=== PATIENT | male | born 1955 | race Caucasian/White ===

== ENCOUNTER 2018-07-31 12:42 | Inpatient (IN) | payer OTHER, MEDICARE | END 2018-08-04 14:40 | disposition home or self-care (01) | LOC: ER 12:42 → TELE 19:27 → TELE-EAST 22:50 | DX: C80.1 Malignant (primary) neoplasm, unspecified (principal); E87.1 Hypo-osmolality and hyponatremia; M48.56XA Collapsed vertebra, not elsewhere classified, lumbar region, initial encounter for fracture; I48.91 Unspecified atrial fibrillation; E78.00 Pure hypercholesterolemia, unspecified; E66.9 Obesity, unspecified ==

== ENCOUNTER 2018-12-13 11:15 | Inpatient (IN) | payer OTHER ==
[~2018-12-13] VITALS: Ht 188 cm; Wt 97.8 kg
[~2018-12-13 11:15] MED LIST: ALLO300T2 PO; APIX5TAB PO; ASPI-231 PO; ATEN-60 PO; ATOR20TA50 PO; CEL100T PO; OMEP20TA PO
[2018-12-13 11:56] LABS: Basophils # (auto) 0 uL; Basophils % (auto) 0.5 % (0.0-2.0); Eosinophils # (auto) 0.2 uL; Eosinophils % (auto) 1.7 % (0.0-7.0); Hematocrit 41.8 % (41.0-53.0); Hemoglobin 14.6 g/dL (13.5-17.5); Lymphocytes % (auto) 9.4 % (10.0-50.0); Mean Corpuscular Hemoglobin 33.1 pg (28.0-32.0); Mean Corpuscular Hgb Conc. 34.8 g/dL (32.0-36.0); Mean Corpuscular Volume 94.9 fL (80.0-100.0); Monocytes # (auto) 1.6 uL; Monocytes % (auto) 16.2 % (0.0-12.0); Neutrophils # (auto) 7.3 uL; Neutrophils % (auto) 72.2 % (37.0-80.0); Nucleated Red Blood Cells % 0.5 %; Platelet Count (auto) 96 10^3/uL (140-450); Red Blood Cells 4.41 10^6/uL (4.5-5.90); Red Cell Distribution Width 16.1 % (11.8-14.3); White Blood Cell 10.1 10^3/uL (4.4-10.8)
[2018-12-13 12:21] LABS: Calcium 8.3 mg/dL (8.5-10.1); Chloride 108 mmol/L (98-107); Potassium 3.5 mmol/L (3.5-5.1); Sodium 136 mmol/L (136-145)
[2018-12-13 12:24] LABS: Alanine Aminotransferase 54 U/L (16-61); Albumin 3.5 g/dL (3.4-5.0); Anion Gap 11 (5-15); Aspartate Aminotransferase 26 U/L (15-37); BUN/Creatinine Ratio 24.2; Blood Urea Nitrogen 30 mg/dL (7-18); Carbon Dioxide 17 mmol/L (21-32); GFR African American 75 mL/min; GFR Non-African American 62 mL/min; Glucose 117 mg/dL (74-106)
[2018-12-13 12:38] LABS: Alkaline Phosphatase 112 U/L (45-117); Bilirubin, Total 0.9 mg/dL (0.2-1.0); Total Protein 6.2 g/dL (6.4-8.2)
[2018-12-13] MEDS ORDERED: SODIUM CHLORIDE 0.9% 1,000 ML IVB ONE (16:55)
[2018-12-13 17:54] LABS: INR 1.01 (0.9-1.15); Partial Thromboplastin Time 24.5 sec (23.64-32.05)
[2018-12-13] MEDS ORDERED: ACETAMINOPHEN 500 MG TAB PO PRN (18:15)
[2018-12-13] MEDS ORDERED: LACTULOSE 20Gm/30ML SOLN PO PRN (18:15)
[2018-12-13] MEDS ORDERED: PROMETHAZINE HCL 25 MG/ML 1ML IV PRN (18:15)
[2018-12-13] MEDS ORDERED: MORPHINE SULF INJ 2 MG/ML SYRINGE 1ML IV PRN ×2 (18:15)
[2018-12-13] MEDS ORDERED: NITROGLYCERIN 0.4 MG SL TAB SL PRN (18:15)
[2018-12-13] MEDS: SODIUM CHLORIDE 0.9% 1,000 ML IV SCH (18:25)
[2018-12-13 21:00] VITALS: BP 105/65
--- NOTE | 2018-12-13 21:00 | NUR ---
Telemetry admit from ER [facility] admitted to Telemetry unit. Patient oriented to Rebeka funk RN, unit, room, bed, and unit policies regarding patient care and visiting hours. Patient now on continuous telemetry monitoring, tele box #51 and telemetry reading on arrival to unit is . Patient placed weighed by bedscale and encouraged to call if they need something. All questions and concerns addressed, patient verbalized understanding.
[2018-12-13] MEDS: APIXABAN 5 MG TAB PO SCH (21:31)
[2018-12-13 22:42] LABS: Urine Bacteria NONE SEEN /hpf (None Seen); Urine Blood 1+ /uL (Negative); Urine Specific Gravity 1.027 (1.001-1.035); Urine WBC <1 /hpf (0 - 3)
[2018-12-14 05:00] VITALS: BP 110/58
[2018-12-14] MEDS: SODIUM CHLORIDE 0.9% 1,000 ML IV SCH ×2 (06:41→19:26)
--- NOTE | 2018-12-14 06:59 | NUR ---
CLOSING PATIENT SLEEPING. NO S/S OF DISTRESS NOTED. FALL PRECAUTIONS IN PLACE, CALL LIGHT WITHIN REACH WILL ENDORSE CARE TO AM SHIFT RN
--- NOTE | 2018-12-14 07:59 | NUR ---
Opening Note Assumed pt care from NOC nurse. Pt is a/ox4 with no s/s of distress or SOB. Pt is currently laying in bed with no complaints. Discussed POC with pt; opt verbalized understanding. Safety measures maintained with call light within reach, bed in lowest position and side rails up. Will continue to monitor for changes q1hr and prn.
[2018-12-14 09:00] VITALS: BP 111/62
[2018-12-14] MEDS: ALLOPURINOL 300 MG TAB PO SCH (09:17)
[2018-12-14] MEDS: APIXABAN 5 MG TAB PO SCH ×2 (09:17→21:47)
[2018-12-14] MEDS: ATORVASTATIN 20 MG TAB PO SCH (09:17)
[2018-12-14] MEDS: PANTOPRAZOLE 40 MG TAB PO SCH (09:19)
[2018-12-14] MEDS: ASPirin-EC 81 mg tab PO SCH (09:19)
[2018-12-14] MEDS: ATENOLOL 25 MG TAB PO SCH (09:19)
[2018-12-14 12:47] VITALS: BP 105/57
--- NOTE | 2018-12-14 13:44 | NUR ---
Assessment Pt is a 63 yr old alert and oriented male. Prior to admit, pt lived with his , Sabrina, who is his emergency contact at [phone]. Pt ambulates with assistance of walker and w/c. Pt is independent with ADL's and his helps to cook and clean. Pt uses a hospital bed in the home and a back brace. Pt stated that he was admitted due to falling when he was standing. Pt stated that he is currently on chemo for multiple myeloma and is planning on getting a stem cell transplant when in better health. Pt stated that he has good family support and is handling things well emotionally. Pt receives SS/Disability and does not have an Advanced directive but is interested in the paperwork. SW provided pt with AD form. Pt stated that his family will transport home upon d/c. Pt plans to d/c home upon medical clearance. Addendum: 12/14/18 at 1358 by IRLANDA POST Amended: Links added.
--- NOTE | 2018-12-14 15:02 | NUR ---
Nutrition Assessment/consult Notes please see attached link for compete assessment Est. Needs BW 96 [id number] kcal (23-25 kcal/kgBW), 96-105 gms pro (1.0-1.1 gms/kgBW). Will continue to monitor pertinent labs and reassess nutrient need prn Addendum: 12/14/18 at [address] Amended: Links added.
[2018-12-14 17:00] VITALS: BP 94/65
[2018-12-14] MEDS: ENSURE CLEAR Mixed Berry 8oz Carton PO SCH ×2 (17:38→21:48)
--- NOTE | 2018-12-14 19:33 | NUR ---
OPENING NOTE REPORT RECEIVED FROM DAY SHIFT RN PATIENT IS A/OX4 RESTING IN BED. PATIENT DENIES ANY DISCOMFORT. POC DISCUSSED AND ALL QUESTIONS ANSWERED. WILL MONITOR Q1H PRN THROUGHOUT SHIFT. FALL PRECAUTIONS IN PLACE, CALL LIGHT WITHIN REACH.
[2018-12-14] MEDS: TEMAZEPAM 15 MG CAP PO PRN (21:47)
[2018-12-14 22:00] VITALS: BP 129/79
[2018-12-15] MEDS: traMADol HCL 50 MG TAB PO PRN ×2 (02:22→21:39)
[2018-12-15 05:00] VITALS: BP 109/66
[2018-12-15] MEDS: ENSURE CLEAR Mixed Berry 8oz Carton PO SCH ×4 (05:44→21:41)
--- NOTE | 2018-12-15 06:50 | NUR ---
CLOSING PATIENT IS SLEEPING AT THIS TIME. NO S/S OF DISTRESS. FALL PRECAUTIONS IN PLACE, CALL LIGHT WITHIN REACH. WILL ENDORSE CARE TO AM SHIFT RN
[2018-12-15 07:01] LABS: Hemoglobin 12.2 g/dL (13.5-17.5)
[2018-12-15 07:03] LABS: Hematocrit 34.5 % (41.0-53.0); Mean Corpuscular Hemoglobin 33.7 pg (28.0-32.0); Mean Corpuscular Hgb Conc. 35.2 g/dL (32.0-36.0); Mean Corpuscular Volume 95.7 fL (80.0-100.0); Platelet Count (auto) 51 10^3/uL (140-450); Red Blood Cells 3.61 10^6/uL (4.5-5.90); Red Cell Distribution Width 15.4 % (11.8-14.3)
[2018-12-15 07:04] LABS: Basophils % (manual) 0 (0.0-2.0); Blast Cells 0; Eosinophils % (manual) 0 (0-7); Myelocytes % 0; Promyelocytes % 0; Reactive Lymphocytes 0
[2018-12-15 07:27] LABS: Albumin 2.7 g/dL (3.4-5.0); BUN/Creatinine Ratio 23.8; Calcium 7.8 mg/dL (8.5-10.1); Magnesium 1.7 mg/dL (1.6-2.6); Potassium 3.5 mmol/L (3.5-5.1); Total Protein 4.7 g/dL (6.4-8.2)
[2018-12-15 07:32] LABS: Bilirubin, Total 1.1 mg/dL (0.2-1.0)
--- NOTE | 2018-12-15 07:33 | NUR ---
Opening Note Assumed pt care from [facility] nurse. Pt is a/ox4 with no s/s of distress or SOB. Pt is currently laying in bed with no complaints. Discussed POC with pt and the pending hematology/oncology consultation; pt verbalized understanding. Safety measures maintained with call light within reach, bed in lowest position and side rails up. Will continue to monitor for changes q1hr and prn.
[2018-12-15] MEDS: SODIUM CHLORIDE 0.9% 1,000 ML IV SCH ×2 (07:42→21:42)
[2018-12-15 07:45] LABS: Band Neutrophils % (manual) 8; Lymphocytes % (manual) 12 (10.0-50.0); Metamyelocytes % 2; Monocytes % (manual) 21 (0-12)
[2018-12-15 08:38] VITALS: BP 110/72
[2018-12-15] MEDS: PANTOPRAZOLE 40 MG TAB PO SCH (09:16)
[2018-12-15] MEDS: ATORVASTATIN 20 MG TAB PO SCH (09:16)
[2018-12-15] MEDS: ATENOLOL 25 MG TAB PO SCH (09:17)
[2018-12-15] MEDS: APIXABAN 5 MG TAB PO SCH ×2 (09:17→21:41)
[2018-12-15] MEDS: ASPirin-EC 81 mg tab PO SCH (09:17)
[2018-12-15] MEDS: ALLOPURINOL 300 MG TAB PO SCH (09:17)
[2018-12-15 13:01] VITALS: BP 95/60
[2018-12-15 16:43] VITALS: BP 106/63
[2018-12-15] MEDS: TEMAZEPAM 15 MG CAP PO PRN (21:40)
[2018-12-15 22:19] VITALS: BP 97/64
[2018-12-16 05:00] VITALS: BP 129/96
[2018-12-16 05:40] LABS: Hematocrit 34.8 % (41.0-53.0); Hemoglobin 12.1 g/dL (13.5-17.5); Mean Corpuscular Hemoglobin 33.5 pg (28.0-32.0); Mean Corpuscular Hgb Conc. 34.9 g/dL (32.0-36.0); Platelet Count (auto) 50 10^3/uL (140-450); Red Blood Cells 3.62 10^6/uL (4.5-5.90); Red Cell Distribution Width 15.6 % (11.8-14.3); White Blood Cell 7.5 10^3/uL (4.4-10.8)
[2018-12-16 06:03] LABS: BUN/Creatinine Ratio 17.5; Calcium 7.7 mg/dL (8.5-10.1); Magnesium 1.7 mg/dL (1.6-2.6); Potassium 3.3 mmol/L (3.5-5.1)
[2018-12-16 06:05] LABS: Basophils % (manual) 0 (0.0-2.0); Blast Cells 0; Metamyelocytes % 0; Myelocytes % 0; Promyelocytes % 0; Reactive Lymphocytes 0
[2018-12-16 06:08] LABS: % Iron Saturation 39.5 % (20-55)
[2018-12-16 06:33] LABS: Band Neutrophils % (manual) 6; Eosinophils % (manual) 4 (0-7); Lymphocytes % (manual) 21 (10.0-50.0); Monocytes % (manual) 17 (0-12)
--- NOTE | 2018-12-16 07:30 | NUR ---
Opening Shift Note Assumed care of patient, A/OX4 with no S/S of distress/SOB or pain. Bed is in the lowest position with 2x side rails up for safety. Call light is within reach. Instructed on POC and to call for assist PRN, will continue to monitor for changes Q1hr and PRN.
[2018-12-16 08:00] VITALS: BP 122/71
[2018-12-16 09:13] VITALS: BP 122/71
[2018-12-16] MEDS: ATORVASTATIN 20 MG TAB PO SCH (09:41)
[2018-12-16] MEDS: PANTOPRAZOLE 40 MG TAB PO SCH (09:41)
[2018-12-16] MEDS: ALLOPURINOL 300 MG TAB PO SCH (09:42)
[2018-12-16] MEDS: SODIUM CHLORIDE 0.9% 1,000 ML IV SCH (09:43)
[2018-12-16] MEDS: ATENOLOL 25 MG TAB PO SCH (09:43)
[2018-12-16] MEDS ORDERED: POTASSIUM CHL 20 Meq TABLET PO ONE (10:15)
[2018-12-16 11:51] VITALS: BP 122/71
--- NOTE | 2018-12-16 12:00 | NUR ---
IV removal IV DC'd with clean sterile technique, 20g catheter fully intact. Pressure dressing applied to site. Patient tolerated well.
--- NOTE | 2018-12-16 13:46 | NUR ---
Discharge instructions given as ordered. Encourage to follow up with PMD as instructed. All questions and concerns addressed. Patient verbalized understanding. Medication reconciliation form completed and copy given to patient. IV removed with catheter intact, pressure dressing applied. Telemetry unit returned to ICU. Patient taken to vehicle via wheelchair with all personal belongings, accompanied by staff. No distress noted at time of departure.
[2018-12-17 09:22] LABS: Ferritin 246.7 ng/mL (10-322)
[2018-12-17 09:23] LABS: Folate (Folic Acid) 3.73 ng/mL (5.38-24)
== END 2018-12-16 13:40 | disposition home or self-care (01) | DRG 683 ==
LOC: ER 11:23 → TELE 11:24 → TELE-WESTW 21:00
PROVIDERS: ADMIT Internal Medicine; ATTEND Internal Medicine Geriatric Medicine
DX: N17.9 Acute kidney failure, unspecified (principal); C90.00 Multiple myeloma not having achieved remission; E46 Unspecified protein-calorie malnutrition; R55 Syncope and collapse; I48.91 Unspecified atrial fibrillation; Z86.73 Personal history of transient ischemic attack (TIA), and cerebral infarction without residual deficits; D69.6 Thrombocytopenia, unspecified; D64.9 Anemia, unspecified; E86.0 Dehydration; E87.6 Hypokalemia; Z82.49 Family history of ischemic heart disease and other diseases of the circulatory system
CPT/HCPCS: 36415; 70450; 71045; 80048; 80053; 80061; 81001; 82607; 82728; 82746; 82784; 83540; 83550; 83615; 83690; 83735; 83883; 84484; 85007; 85025; 85027; 85610; 85730; 93005; 93306; 94761; 96360; 96361; G0378

== ENCOUNTER 2023-02-13 09:47 | Inpatient (IN) | payer OTHER ==
[2023-02-13] VITALS (10 sets, daily range): BP systolic 110–133; BP diastolic 64–93; PULSE 67–92; RESP 16–20; TEMP 36.3; O2SAT 91–100
[~2023-02-13] VITALS: Ht 182.9 cm; Wt 106.0 kg
[~2023-02-13 09:47] MED LIST changes: -ASPI-231 PO; +ASPI1TAB20 PO; -ATEN-60 PO
[2023-02-13 10:48] LABS: Basophils # (auto) 0 10 ^3/uL (0-0.2); Basophils % (auto) 0.4 % (0.0-2.0); Eosinophils # (auto) 0 10 ^3/uL (0-0.8); Eosinophils % (auto) 0.7 % (0.0-7.0); Lymphocytes # (auto) 1.1 10 ^3/uL (0.4-5.4); Neutrophils # (auto) 5.1 10 ^3/uL (1.6-8.6); White Blood Cell 7.3 10^3/uL (4.4-10.8)
[2023-02-13 10:49] LABS: Hematocrit 38.3 % (41.0-53.0); Hemoglobin 11.9 g/dL (13.5-17.5); Lymphocytes % (auto) 14.6 % (10.0-50.0); Mean Corpuscular Hemoglobin 26.2 pg (28.0-32.0); Mean Corpuscular Hgb Conc. 31.2 g/dL (32.0-36.0); Mean Corpuscular Volume 83.9 fL (80.0-100.0); Neutrophils % (auto) 70.3 % (37.0-80.0); Nucleated Red Blood Cells % 0.2 %; Red Blood Cells 4.56 10^6/uL (4.5-5.90); Red Cell Distribution Width 17.1 % (11.8-14.3)
[2023-02-13 11:06] LABS: Alanine Aminotransferase 44 U/L (7-40); Alkaline Phosphatase 100 U/L (46-116); Anion Gap 8 (5-15); Aspartate Aminotransferase 62 U/L (13-40); BUN/Creatinine Ratio 9.9 (10.0-20.0); Blood Urea Nitrogen 13 mg/dL (9-23); Calcium 9.1 mg/dL (8.5-10.1); Carbon Dioxide 25 mmol/L (20-30); Chloride 106 mmol/L (98-107); Glucose 113 mg/dL (74-106); Potassium 4.7 mmol/L (3.5-5.1); Sodium 139 mmol/L (136-145)
[2023-02-13 11:07] LABS: Albumin 4.3 g/dL (3.2-4.8); Bilirubin, Total 1.3 mg/dL (0.2-1.0); Total Protein 6.9 g/dL (5.7-8.2)
[2023-02-13 12:31] LABS: Urine Bacteria FEW /hpf (None Seen); Urine Blood Negative /uL (Negative); Urine Clarity Clear (Clear); Urine Color Yellow (Yellow); Urine Mucus FEW (None Seen); Urine Protein, UAD 1+ (Negative); Urine Specific Gravity 1.024 (1.001-1.035); Urine WBC 1 /hpf (0 - 3); Urine pH 6.5 (5.0-8.0)
[2023-02-13] MEDS ORDERED: DOCUSATE SOD 100 MG CAP PO PRN (13:45)
[2023-02-13] MEDS ORDERED: ACETAMINOPHEN 325 MG TAB PO PRN (13:45)
[2023-02-13] MEDS ORDERED: ONDANSETRON HCL 4 MG/2 ML VIAL IV PRN (13:45)
[2023-02-13] MEDS ORDERED: IOHEXOL 350 MG/ML 100ML IJ ONE (13:53)
[2023-02-13] MEDS ORDERED: AZITHROMYCIN 500MG/ 250ML 250 ML IV ONE (15:00)
[2023-02-13] MEDS: SODIUM CHLORIDE 0.9% 1,000 ML IV SCH ×2 (15:01→22:05)
[2023-02-13] MEDS: cefTRIAXone 1GM/50ML D5W 50 ML IV ONE ×2 (15:08→15:09)
[2023-02-13 15:23] LABS: COVID19 ANTIGEN SOFIA FIA NEGATIVE (NEGATIVE); Rapid Influenza A Negative (Negative); Rapid Influenza B Negative (Negative)
[2023-02-13] MEDS: IPRATROPIUM BROM 0.5 MG/2.5ML INH SOL NEB SCH ×2 (20:26→22:31)
[2023-02-13] MEDS: ALBUTEROL SULF 2.5 MG/0.5ML(0.5%) NEB SOLN NEB SCH ×2 (20:26→22:31)
[2023-02-13] MEDS: APIXABAN 5 MG TAB PO SCH (21:01)
[2023-02-13] MEDS: CELECOXIB 100 MG CAP PO SCH (21:01)
[2023-02-14] VITALS (15 sets, daily range): BP systolic 106–128; BP diastolic 59–71; PULSE 58–112; RESP 16–20; TEMP 36.3; O2SAT 91–100
[2023-02-14] MEDS: SODIUM CHLORIDE 0.9% 1,000 ML IV SCH ×2 (06:32→13:42)
[2023-02-14] MEDS: IPRATROPIUM BROM 0.5 MG/2.5ML INH SOL NEB SCH ×6 (06:43→22:17)
[2023-02-14] MEDS: ALBUTEROL SULF 2.5 MG/0.5ML(0.5%) NEB SOLN NEB SCH ×6 (06:43→22:17)
[2023-02-14 07:42] LABS: Alanine Aminotransferase 35 U/L (7-40); Albumin 3.5 g/dL (3.2-4.8); Alkaline Phosphatase 81 U/L (46-116); Anion Gap 7 (5-15); Aspartate Aminotransferase 39 U/L (13-40); BUN/Creatinine Ratio 9.6 (10.0-20.0); Blood Urea Nitrogen 12 mg/dL (9-23); Calcium 8.4 mg/dL (8.5-10.1); Carbon Dioxide 24 mmol/L (20-30); Chloride 109 mmol/L (98-107); Cholesterol 86 mg/dL (< 200); Glucose 93 mg/dL (74-106); HDL Cholesterol 31 mg/dL (40-59); LDL Cholesterol 38 mg/dL (< 100); Potassium 4.4 mmol/L (3.5-5.1); Sodium 140 mmol/L (136-145); Triglycerides 85 mg/dL (< 150)
[2023-02-14 07:43] LABS: Bilirubin, Total 0.9 mg/dL (0.2-1.0); Total Protein 5.7 g/dL (5.7-8.2)
[2023-02-14 07:45] LABS: Basophils # (auto) 0 10 ^3/uL (0-0.2); Eosinophils # (auto) 0.1 10 ^3/uL (0-0.8)
[2023-02-14 07:46] LABS: Basophils % (auto) 0.3 % (0.0-2.0); Eosinophils % (auto) 1.7 % (0.0-7.0); Hematocrit 32.6 % (41.0-53.0); Hemoglobin 10.2 g/dL (13.5-17.5); Lymphocytes # (auto) 0.9 10 ^3/uL (0.4-5.4); Mean Corpuscular Hemoglobin 26.6 pg (28.0-32.0); Mean Corpuscular Hgb Conc. 31.4 g/dL (32.0-36.0); Mean Corpuscular Volume 84.7 fL (80.0-100.0); Monocytes % (auto) 16.1 % (0.0-12.0); Neutrophils # (auto) 4.2 10 ^3/uL (1.6-8.6); Neutrophils % (auto) 67.9 % (37.0-80.0); Nucleated Red Blood Cells % 0.1 %; Red Blood Cells 3.84 10^6/uL (4.5-5.90); Red Cell Distribution Width 17.3 % (11.8-14.3); White Blood Cell 6.2 10^3/uL (4.4-10.8)
[2023-02-14] MEDS: PANTOPRAZOLE 40 MG TAB PO SCH (08:36)
[2023-02-14] MEDS: APIXABAN 5 MG TAB PO SCH ×2 (08:37→21:17)
[2023-02-14] MEDS: CELECOXIB 100 MG CAP PO SCH ×2 (08:37→21:17)
[2023-02-14] MEDS: ALLOPURINOL 300 MG TAB PO SCH (08:38)
[2023-02-14] MEDS: cefTRIAXone 1GM/50ML D5W 50 ML IV SCH (08:41)
[2023-02-14] MEDS: AZITHROMYCIN 500MG/ 250ML 250 ML IV SCH (10:19)
[2023-02-15] VITALS (7 sets, daily range): BP systolic 103–112; BP diastolic 63–72; PULSE 57–89; RESP 16–20; TEMP 97.8–98.4; O2SAT 94–100
[2023-02-15] MEDS: SODIUM CHLORIDE 0.9% 1,000 ML IV SCH ×2 (01:09→08:37)
[2023-02-15 06:28] LABS: Basophils # (auto) 0 10 ^3/uL (0-0.2); Basophils % (auto) 0.3 % (0.0-2.0); Eosinophils # (auto) 0.1 10 ^3/uL (0-0.8); Eosinophils % (auto) 1.2 % (0.0-7.0); Hemoglobin 10.7 g/dL (13.5-17.5); Lymphocytes # (auto) 0.8 10 ^3/uL (0.4-5.4); Lymphocytes % (auto) 13.6 % (10.0-50.0); Mean Corpuscular Hemoglobin 26.8 pg (28.0-32.0); Mean Corpuscular Hgb Conc. 31.5 g/dL (32.0-36.0); Monocytes % (auto) 16.9 % (0.0-12.0); Neutrophils # (auto) 4.2 10 ^3/uL (1.6-8.6); Nucleated Red Blood Cells % 0.2 %; Red Cell Distribution Width 17.3 % (11.8-14.3); White Blood Cell 6.2 10^3/uL (4.4-10.8)
[2023-02-15] MEDS: ALBUTEROL SULF 2.5 MG/0.5ML(0.5%) NEB SOLN NEB SCH ×3 (06:45→14:58)
[2023-02-15] MEDS: IPRATROPIUM BROM 0.5 MG/2.5ML INH SOL NEB SCH ×3 (06:45→14:58)
[2023-02-15 06:57] LABS: Alanine Aminotransferase 33 U/L (7-40); Albumin 3.6 g/dL (3.2-4.8); Alkaline Phosphatase 89 U/L (46-116); Anion Gap 9 (5-15); Aspartate Aminotransferase 37 U/L (13-40); Bilirubin, Total 0.9 mg/dL (0.2-1.0); Blood Urea Nitrogen 12 mg/dL (9-23); Calcium 8.4 mg/dL (8.7-10.4); Carbon Dioxide 21 mmol/L (20-30); Chloride 109 mmol/L (98-107); Glucose 101 mg/dL (74-106); Lipase 34 U/L (12-53); Magnesium 2.2 mg/dL (1.6-2.6); Potassium 4.4 mmol/L (3.5-5.1); Sodium 139 mmol/L (136-145)
[2023-02-15] MEDS: PANTOPRAZOLE 40 MG TAB PO SCH (08:37)
[2023-02-15] MEDS: CELECOXIB 100 MG CAP PO SCH (08:38)
[2023-02-15] MEDS: ALLOPURINOL 300 MG TAB PO SCH (08:38)
[2023-02-15] MEDS: APIXABAN 5 MG TAB PO SCH (08:38)
[2023-02-15] MEDS: cefTRIAXone 1GM/50ML D5W 50 ML IV SCH (10:00)
[2023-02-15] MEDS ORDERED: AZITTAB PO (10:07)
[2023-02-15] MEDS: AZITHROMYCIN 500MG/ 250ML 250 ML IV SCH (11:11)
== END 2023-02-15 14:30 | disposition home or self-care (01) | DRG 202 ==
LOC: ER 09:47 → OVERFLOW 13:48 → WEST WING 17:06
PROVIDERS: ADMIT Nurse Practitioner Family; ATTEND Internal Medicine Geriatric Medicine
DX: J20.9 Acute bronchitis, unspecified (principal); C90.01 Multiple myeloma in remission; K80.00 Calculus of gallbladder with acute cholecystitis without obstruction; N17.9 Acute kidney failure, unspecified; I48.91 Unspecified atrial fibrillation; M10.9 Gout, unspecified; Z20.822 Contact with and (suspected) exposure to COVID-19; R74.01 Elevation of levels of liver transaminase levels; K21.9 Gastro-esophageal reflux disease without esophagitis; J06.9 Acute upper respiratory infection, unspecified; Z86.73 Personal history of transient ischemic attack (TIA), and cerebral infarction without residual deficits; Z82.49 Family history of ischemic heart disease and other diseases of the circulatory system; Z79.01 Long term (current) use of anticoagulants
CPT/HCPCS: 36415; 71045; 71250; 71275; 78226; 80053; 80061; 81001; 83036; 83690; 83735; 84443; 85025; 85379; 87040; 87426; 87804; 93005; 93306; 94640; 96365; G0378

== ENCOUNTER 2024-07-01 11:15 | Inpatient (IN) | payer OTHER ==
[~2024-07-01] VITALS: Ht 185.4 cm; Wt 92.0 kg
[~2024-07-01 11:15] MED LIST changes: +APIX5TAB; +AZITTAB PO; +CELE1CAP29 PO; +FERR325T20 PO; +OXY5T; +TAMS0.4C39; +VANC125C3 PO
[2024-07-01] MEDS: SODIUM CHLORIDE 0.9% 1,000 ML IV ONE (12:00)
--- NOTE | 2024-07-01 12:02 | ED.PDOC ---
History of Present Illness HPI Comments 69 y/o M, with PMhx of metastatic disease, A-Fib, Colon Cancer, Anemia, and Multiple Myeloma presents to the ED for CC of generalized weakness. Patient states, he has been experiencing symptoms of malaise, fatigue, and weakness onset, x1week. Patient reports, that he was supposed to receive and infusion today (07/01/24) and was turned away and relayed to the ED d/t symptoms. Patient denies nausea, vomiting, blurred vision, or diarrhea. No other symptoms or modifying factors present at this time. reports that pt was having difficulties just walking across the room, due to generalized lack of energy Chief Complaint: General Weakness Time Seen by MD: 11:50 Primary Care Provider: LAUREN Reviewed Notes: Nurses Notes, Medications, Allergies Allergies: Coded Allergies: NO KNOWN ALLERGIES (Unverified , 07/31/18) Home Meds Active Scripts Vancomycin HCl (Vancomycin HCl) 125 Mg Cap, 125 MG PO QID for 10 Days, #40 CAP Prov:AISHWARYA CAMPOS MD 04/01/24 Azithromycin (Zithromax Z-Nikhil) 250 Mg Tab, 250 MG PO DAILY, #6 TAB Prov:AISHWARYA CAMPOS MD 02/15/23 Reported Medications Apixaban Base (ELIQUIS) 5 Mg Tab, 1 03/26/24 Oxycodone Hcl (OXYCODONE HCL) 5 Mg Tb 03/26/24 Celecoxib (Celecoxib) 200 Mg Cap, 1 CAP PO DAILY 03/26/24 Ferrous Sulfate (Ferosul) 325 Mg Tab, 1 TAB PO DAILY 03/26/24 Tamsulosin Hcl (Tamsulosin Hcl) 0.4 Mg Cap 03/26/24 Omeprazole (Gnp Omeprazole) 20 Mg Tab, 1 TAB PO DAILY, #90 TAB 1 Refill 08/01/18 Aspirin (Aspir-81) 81 Mg Tab, 1 TAB PO DAILY, #30 TAB 5 Refills 08/01/18 Atorvastatin Calcium (ATORVASTATIN CALCIUM) 20 Mg Tab, 1 TAB PO DAILY, #30 TAB 5 Refills 08/01/18 Celecoxib (CeleBREX CAPSULE) 100 Mg Cp, 2 CAP PO BID, #60 CAP 3 Refills 08/01/18 Allopurinol (Allopurinol) 300 Mg Tab, 300 MG PO DAILY for 30 Days, MG 08/01/18 Apixaban Base (ELIQUIS) 5 Mg Tab, 5 MG PO BID, TAB 08/01/18 Information Source: Patient Mode of Arrival: Ambulatory Severity: Moderate Timing: Weeks Duration: Since onset Prehospital treatment: None Past Medical History PAST MEDICAL HISTORY: AFIB, Anemia, Cancer, CVA, TIA Surgical History: Tonsillectomy Family History Family History: Unobtainable, Family hx of HTN Social History Smoker: Non-Smoker Alcohol: Occasionally Drugs: Denies Drug Use Lives In: Home Constitutional: reports: fatigue, malaise, weakness; denies: chills, diaphoresis, fever, sweats, others EENTM: denies: blurred vision, double vision, ear bleeding, ear discharge, ear drainage, ear pain, ear ringing, eye pain, eye redness, hearing loss, mouth pain, mouth swelling, nasal discharge, nose bleeding, nose congestion, nose pain, photophobia, tearing, throat pain, throat swelling, voice changes, others Respiratory: reports: cough; denies: hemoptysis, orthopnea, SOB at rest, shortness of breath, SOB with excertion, stridor, wheezing, others Cardiovascular: denies: chest pain, dizzy spells, diaphoresis, Dyspnea on exertion, edema, irregular heart beat, left arm pain, lightheadedness, palpitations, PND, syncope, others Gastrointestinal: denies: abdomen distended, abdominal pain, blood streaked bowels, constipated, diarrhea, dysphagia, difficulty swallowing, hematemesis, melena, nausea, poor appetite, poor fluid intake, rectal bleeding, rectal pain, vomiting, others Genitourinary: denies: burning, dysuria, flank pain, frequency, hematuria, incontinence, penile discharge, penile sore, pain, testicle pain, testicle swelling, urgency, others Neurological: reports: headache; denies: dizziness, fainting, left sided numbness, left sided weakness, numbness, paresthesia, pre-existing deficit, right sided numbness, right sided weakness, seizure, speech problems, tingling, tremors, weakness, others Musculoskeletal: denies: back pain, gout, joint pain, joint swelling, muscle pain, muscle stiffness, neck pain, others Integumetry: denies: bruises, change in color, change in hair/nails, dryness, laceration, lesions, lumps, rash, wounds, others Allergic/Immunocompromised: denies: Difficulty Healing, Frequent Infections, Hives, Itching, others Hematologic/Lymphatic: denies: anemia, blood clots, easy bleeding, easy bruising, swollen glands, others Endocrine: denies: excessive hunger, excessive sweating, excessive thirst, excessive urination, flushing, intolerance to cold, intolerance to heat, unexplained weight gain, unexplained weight loss, others Psychiatric: denies: anxiety, bipolar disorder, depression, hopeless, panic disorder, schizophrenia, sleepless, suicidal, others All Other Systems: Reviewed and Negative Physical Exam General Appearance: No Apparent Distress, Normal, Other (colostomy left side) HEENT: Normal ENT Inspection, Pharynx Normal, TMs Normal Neck: Full Range of Motion, Non-Tender, Normal, Normal Inspection Respiratory: Chest Non-Tender, Lungs Clear, No Accessory Muscle Use, No Respiratory Distress, Normal Breath Sounds Cardiovascular: No Edema, No JVD, No Murmur, No Gallop, Normal Peripheral Pulses, Regular Rate/Rhythm Breast Exam: Deferred Gastrointestinal: No Organomegaly, Non Tender, No Pulsatile Mass, Normal Bowel Sounds, Soft Genitalia: Deferred Pelvic: Deferred Rectal: Deferred Extremities: No calf tenderness, Normal capillary refill, Normal inspection, Normal range of motion, Non-tender, No pedal edema Musculoskeletal : Apperance: Normal 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 Was a procedure done?: No Differential Dx Considerations may include: dehydration, anemia, electrolyte disorders. viral syndrome, arrhythmias, deconditioning, hypoglycemia X-Ray, Labs, Meds, VS Vital Signs Date Time Temp Pulse Resp B/P (MAP) Pulse Ox O2 Delivery O2 Flow Rate FiO2 07/01/24 15:34 50 16 163/104 07/01/24 14:18 72 19 158/108 07/01/24 13:45 58 12 142/94 (110) 97 07/01/24 12:13 92 12 96 Room Air* 0 21 07/01/24 11:56 75 07/01/24 11:49 97.9 92 12 147/92 (110) 96 97.9 07/01/24 11:29 115 07/01/24 11:25 97.5 74 18 116/88 (97) 96 97.5 Lab Test 07/01/24 14:23 07/01/24 11:53 07/01/24 11:27 Range/Units Influenza Type A Antigen Negative Negative Influenza Type B Antigen Negative Negative SARS-CoV-2 Antigen (Rapid) Negative NEGATIVE White Blood Count 6.2 4.4-10.8 10^3/uL Red Blood Count 4.02 L 4.5-5.90 10^6/uL Hemoglobin 14.1 13.5-17.5 g/dL Hematocrit 41.2 41.0-53.0 % Mean Corpuscular Volume 102.7 H 80.0-100.0 fL Mean Corpuscular Hemoglobin 35.0 H 28.0-32.0 pg Mean Corpuscular Hemoglobin Concent 34.1 32.0-36.0 g/dL Red Cell Distribution Width 27.4 H 11.8-14.3 % Platelet Count 137 L 140-450 10^3/uL Mean Platelet Volume 7.5 6.9-10.8 fL Neutrophils (%) (Auto) 37.0-80.0 % Lymphocytes (%) (Auto) 10.0-50.0 % Monocytes (%) (Auto) 0.0-12.0 % Basophils (%) (Auto) 0.0-2.0 % Neutrophils # (Auto) 1.6-8.6 10 ^3/uL Lymphocytes # (Auto) 0.4-5.4 10 ^3/uL Monocytes # (Auto) 0-1.3 10 ^3/uL Differential Total Cells Counted 100.0 100 Neutrophils % (Manual) 63 37.0-80.0 Band Neutrophils % (Manual) 1 Lymphocytes % (Manual) 20 10.0-50.0 Monocytes % (Manual) 15 H 0-12 Eosinophils % (Manual) 1 0-7 Basophils % (Manual) 0 0.0-2.0 Metamyelocytes % (manual) 0 Myelocytes % (Manual) 0 Promyelocytes % (Manual) 0 Blast Cells % (Manual) 0 Reactive Lymphocytes 0 Platelet Estimate Adequate Large Platelets Few Anisocytosis (manual) Moderate Macrocytosis Slight Stomatocytes Few Sodium Level 143 136-145 mmol/L Potassium Level 3.5 3.5-5.1 mmol/L Chloride Level 110 H 98-107 mmol/L Carbon Dioxide Level 22 20-31 mmol/L Anion Gap 11 5-15 Blood Urea Nitrogen 9 9-23 mg/dL Creatinine 1.03 0.700-1.30 mg/dL Glomerular Filtration Rate Calc 78 >90 mL/min BUN/Creatinine Ratio 8.7 L 10.0-20.0 Serum Glucose 136 H 74-106 mg/dL Calcium Level 9.7 8.7-10.4 mg/dL Total Bilirubin 1.5 H 0.2-1.0 mg/dL Aspartate Amino Transferase (AST) 35 13-40 U/L Alanine Aminotransferase (ALT) 21 7-40 U/L Alkaline Phosphatase 121 H 46-116 U/L Troponin I High Sensitivity 36 </=54 ng/L Total Protein 6.3 5.7-8.2 g/dL Albumin 4.2 3.2-4.8 g/dL Urine Color Yellow Yellow Urine Clarity Clear Clear Urine pH 5.5 5.0-9.0 Urine Specific [place] 1.016 1.001-1.035 Urine Protein Negative Negative Urine Ketones Negative Negative Urine Blood Negative Negative /uL Urine Nitrite Negative Negative Urine Bilirubin Negative Negative Urine Urobilinogen Normal Negative mg/dL Urine Leukocyte Esterase Negative Negative /uL Urine RBC 1 0 - 3 /hpf Urine Microscopic WBC 1 0-3 /HPF Urine Squamous Epithelial Cells None seen <5 /hpf Urine Bacteria None seen None Seen /hpf Urine Hyaline Casts Mod 0 - 2 /lpf Urine Mucus Few None Seen Urine Glucose Normal Normal mg/dL Current Medications Medications (Trade) Dose Ordered Sig/Landon Route Start Time Stop Time Status Last Admin Sodium Chloride 1,000 ml @ 125 mls/hr Q8H ONCE IV 07/01/24 12:00 07/01/24 19:59 07/01/24 12:00 Morphine Sulfate 2 mg ONCE ONCE IV 07/01/24 14:00 07/01/24 14:01 DC 07/01/24 14:18 Ondansetron HCl (Zofran) 4 mg ONCE ONCE IV 07/01/24 14:00 07/01/24 14:01 DC 07/01/24 14:18 [facility] [id number] [place] [id number] Ph: [phone] DIAGNOSTIC IMAGING Diagnostic Imaging Report : [id number] Signed PATIENT: [facility] ACCT: [id number] UNIT: [id number] : 1955 LOC: ER ROOM / BED: / AGE / SEX: 69 / M ADM STATUS: REG ER SERVICE 1146 ORDERING PHYSICIAN: DEVON GONZALEZ MD PROCEDURE(s): CXRP - CHEST PORTABLE REASON: weakness, cough ORDER NUMBER(s): [id number], ACCESSION NUMBER(s): [id number] CHEST RADIOGRAPH Indication: weakness, cough Technique: Single frontal view of the chest was obtained COMPARISON: XY CHEST PORTABLE on DOS: 02/13/23 FINDINGS: Lines and Tubes: Right chest port in satisfactory position. Lungs: Clear Pleura: No effusion. No pneumothorax. Cardiomediastinal contours: Unremarkable Bones: Unremarkable IMPRESSION: No acute disease. ATED BY: DERRELL FAROOQ MD DICTATED DATE/TIME: 07/01/24 1235 SIGNED BY: DERRELL FAROOQ MD SIGNED DATE/TIME: 07/01/24 1235 CC: Time of 1ST Reevaluation: 12:20 Reevaluation 1ST: Unchanged Time of 2ND Reevaluation: 15:42 Reevaluation 2ND: Improved Patient Education/Counseling: Diagnosis, Treatment, Prognosis, Need For Follow Up Family Education/Counseling: Diagnosis, Treatment, Prognosis, Need For Follow Up, No Family Present Additional Information The following tests were ordered, and results were reviewed by me: TROPONIN, CBC, CMP, UA, EKG, COVID-19 GURVINDER, RAPID INFLUENZA A & B, CXR I reviewed and agreed with the following test results read by other providers: CXR I discussed treatment and results with medical personnel and: patient Comprehensive systems review obtained and negative except for what is stated in the HPI. although pt is feeling better, feels he is still too weak to walk on his own. pt has episodes of transient bradycarida into the high 40s. he will be admitted Departure 1 Departure Time of Disposition: 15:42 Impression: Primary Impression: Generalized weakness Additional Impression: Bradycardia Disposition: ADMITTED INPATIENT Admit to: Tele Condition: Serious Discharged With: Self, Spouse Critical Care Note Critical Care Time?: Yes (55 min-critical care time only) Critical care comment: due to concerns for patient's condition deteriorating, the care required my highest level of attention and readiness to intervene. i assessed the patient's condition, ordered the proper tests and treatments, reassessed for response and reviewed the results. i communicated with medical personnel and formulated a plan of care. total critical care time does not include any procedures Stability Stability form required: No Heart Score Heart Score: Heart Score Response (Comments) Value History N/A 0 EKG N/A 0 Age N/A 0 Risk Factors N/A 0 Troponin N/A 0 Total 0 I personally scribed for DEVON GONZALEZ MD ([email or web address]) on 07/01/24 at 12:02. Electronically submitted by Génesis Pepper ([email or web address]). I personally scribed for DEVON GONZALEZ MD ([email or web address]) on 07/01/24 at 12:17. Electronically submitted by Génesis Pepper ([email or web address]). I personally scribed for DEVON GONZALEZ MD ([email or web address]) on 07/01/24 at 12:43. Electronically submitted by Génesis Pepper ([email or web address]). DEVON GONZALEZ MD July 01, 2024 12:02
[2024-07-01 12:12] LABS: Platelet Count (auto) 137 10^3/uL (140-450)
[2024-07-01 12:13] VITALS: PULSE 92; RESP 12; O2SAT 96
[2024-07-01 12:17] LABS: Hematocrit 41.2 % (41.0-53.0); Hemoglobin 14.1 g/dL (13.5-17.5); Mean Corpuscular Hgb Conc. 34.1 g/dL (32.0-36.0); Mean Corpuscular Volume 102.7 fL (80.0-100.0); Red Blood Cells 4.02 10^6/uL (4.5-5.90); White Blood Cell 6.2 10^3/uL (4.4-10.8)
[2024-07-01 12:22] LABS: Red Cell Distribution Width 27.4 % (11.8-14.3)
[2024-07-01 12:24] LABS: Basophils % (manual) 0 (0.0-2.0); Blast Cells 0; Metamyelocytes % 0; Myelocytes % 0; Promyelocytes % 0; Reactive Lymphocytes 0
[2024-07-01 12:28] LABS: Alanine Aminotransferase 21 U/L (7-40); Albumin 4.2 g/dL (3.2-4.8); Alkaline Phosphatase 121 U/L (46-116); Anion Gap 11 (5-15); Aspartate Aminotransferase 35 U/L (13-40); BUN/Creatinine Ratio 8.7 (10.0-20.0); Bilirubin, Total 1.5 mg/dL (0.2-1.0); Blood Urea Nitrogen 9 mg/dL (9-23); Calcium 9.7 mg/dL (8.7-10.4); Carbon Dioxide 22 mmol/L (20-31); Chloride 110 mmol/L (98-107); Glucose 136 mg/dL (74-106); Potassium 3.5 mmol/L (3.5-5.1); Sodium 143 mmol/L (136-145); Total Protein 6.3 g/dL (5.7-8.2)
--- NOTE | 2024-07-01 12:38 | DVH ---
CHEST RADIOGRAPH Indication: weakness, cough Technique: Single frontal view of the chest was obtained COMPARISON: XY CHEST PORTABLE on DOS: 02/13/23 FINDINGS: Lines and Tubes: Right chest port in satisfactory position. Lungs: Clear Pleura: No effusion. No pneumothorax. Cardiomediastinal contours: Unremarkable Bones: Unremarkable IMPRESSION: No acute disease.
[2024-07-01 13:07] LABS: Anisocytosis Moderate; Band Neutrophils % (manual) 1; Eosinophils % (manual) 1 (0-7); Large Platelets FEW; Lymphocytes % (manual) 20 (10.0-50.0); Macrocytosis Slight; Monocytes % (manual) 15 (0-12); Platelet Estimate Adequate; Stomatocytes Few
[2024-07-01 13:09] LABS: Urine Bacteria None Seen /hpf (None Seen)
[2024-07-01 13:21] LABS: Urine Blood Negative /uL (Negative); Urine Clarity Clear (Clear); Urine Color Yellow (Yellow); Urine Hyaline Cast MOD /lpf (0 - 2); Urine Mucus FEW (None Seen); Urine Protein, UAD Negative (Negative); Urine Specific Gravity 1.016 (1.001-1.035); Urine Squamous Epithelial Cell None Seen /hpf (<5); Urine Urobilinogen Normal (Negative); Urine WBC 1 /HPF (0-3); Urine pH 5.5 (5.0-9.0)
[2024-07-01] MEDS: MORPHINE SULFATE INJ 2 MG/ml SYRG IV ONE ×2 (14:18→16:00)
[2024-07-01] MEDS: ONDANSETRON HCL 4 MG/2 ML VIAL IV ONE (14:18)
[2024-07-01 15:02] LABS: COVID19 ANTIGEN SOFIA FIA NEGATIVE (NEGATIVE); Rapid Influenza A Negative (Negative); Rapid Influenza B Negative (Negative)
[2024-07-01] MEDS ORDERED: DOCUSATE SOD 100 MG CAP PO PRN (16:15)
[2024-07-01] MEDS ORDERED: ACETAMINOPHEN 325 MG TAB PO PRN (16:15)
[2024-07-01] MEDS ORDERED: ONDANSETRON HCL 4 MG/2 ML VIAL IV PRN (16:15)
--- NOTE | 2024-07-01 16:24 | DVHHP2 ---
History of Present Illness Reason for Visit: Generalized weakness History of Present Illness The patient is a 69-year-old male with past medical history of anemia, AFib, colon cancer with Mets on chemo therapy, CVA, and TIA who presented to [facility] ED for evaluation of generalized weakness. Patient reports he h as been experiencing symptoms of malaise, fatigue, headache and weakness for the past 1 week. Patient reports, that he was supposed to receive chemotherapy infusion today (07/01/24), but was instructed to the ED due to symptoms. Patient was seen and evaluated in the ED, laboratory data shows WBC 6.2, platelets 137, sodium 143, potassium 3.5, BUN 9, creatinine 1.03, glucose 136, total bilirubin 1.5, troponin 36, blood pressure 142/94, heart rate 50 trending up to 72, temperature 97.9 F, O2 saturation 97% on room air. Please see medication orders section in the computer. On my assessment, patient denied chest pain, no headache at this moment, no diaphoresis, no shortness of breath, no nausea, no vomiting, no fever, no chills. Patient was admitted for further evaluation and medical management. Past Medical History AFIB, Anemia, Cancer, CVA, TIA Past Surgical History Tonsillectomy Family History Reviewed, noncontributory to the management of this case. Past Social History The patient lives at home, denies smoking, alcohol or illicit drugs abuse. Review of Systems Constitutional: Yes: Weakness, Malaise, Other (Fatigue); No: Fever, Chills, Sweats Eyes: No: Pain, Vision change, Conjunctivae inflammation, Eyelid inflammation, Other, Redness ENT: No: Ear pain, Ear discharge, Nose pain, Nose discharge, Nose congestion, Mouth pain, Mouth swelling, Throat pain, Throat swelling, Other Respiratory: No: Cough, Dry, Shortness of breath, SOB with excertion, Wheezing, Hemoptysis, Pleuritic Pain, Sputum, Wheezing, Other Cardiovascular: No: Chest Pain, Palpitations, Orthopnea, Paroxysmal Noc. Dyspnea, Edema, Lt Headedness, Other Gastrointestinal: Other (Colostomy bag in place); No: Nausea, Vomiting, Abdominal Pain, Diarrhea, Constipation, Melena, Hematochezia Genitourinary: No Dysuria, No Frequency, No Incontinence, No Hematuria, No Retention, No Other Musculoskeletal: No: other, neck pain, shoulder pain, arm pain, back pain, hand pain, leg pain, foot pain Skin: No: Rash, Lesions, Jaundice, Bruising, Other Neurological: No: Weakness, Numbness, Incoordination, Change in speech, Confusion, Seizures, Other Allergies: Coded Allergies: NO KNOWN ALLERGIES (Unverified , 07/31/18) Medications Current Medications Medications Dose Ordered Sig/Landon Route Start Time Stop Time Status Last Admin Dose Admin Aspirin 81 mg DAILY PO 07/02/24 10:00 UNV Atorvastatin Calcium 20 mg HS PO 07/01/24 22:00 UNV Tamsulosin HCl 0.4 mg QPM PO 07/01/24 18:00 UNV Famotidine 20 mg DAILY IV 07/02/24 10:00 UNV Apixaban 5 mg BID PO 07/01/24 22:00 UNV Sodium Chloride 10 ml Q8HR IV 07/01/24 22:00 UNV Acetaminophen/ Hydrocodone Bitart 1 tab Q4HP PRN PO 07/01/24 16:15 UNV Ondansetron HCl 4 mg Q4HP PRN IV 07/01/24 16:15 UNV Docusate Sodium 100 mg BIDPRN PRN PO 07/01/24 16:15 UNV Acetaminophen 650 mg Q6HP PRN PO 07/01/24 16:15 UNV Exam Vital Signs Vital Signs Date Time Temp Pulse Resp B/P (MAP) Pulse Ox O2 Delivery O2 Flow Rate FiO2 07/01/24 15:34 50 16 163/104 07/01/24 13:45 97 07/01/24 12:13 Room Air* 0 21 07/01/24 11:49 97.9 97.9 General Appearance: Alert, Oriented X3, Cooperative, No acute distress HEENT: Atraumatic, PERRLA, EOMI, Mucous membr. moist/pink Respiratory: Clear to auscultation, Normal air movement Cardiovascular: Regular rate, Normal S1, Normal S2, No murmurs Abdominal: Normal bowel sounds, Soft, No tenderness, No hepatospenomegaly, No masses, Other (Colostomy bag in place) Extremities: No clubbing, No cyanosis, No edema, Normal pulses, No tenderness/swelling Skin: No rashes, No breakdown, No significant lesion Neuro: Normal speech, Normal tone, Sensation intact, Cranial nerves 3-12 NL, Reflexes 2+, Other (Generalized weakness) Psych/Mental Status: Mental status NL, Mood NL Labs/Xrays Labs Test 07/01/24 14:23 07/01/24 11:53 07/01/24 11:27 Range/Units Influenza Type A Antigen Negative Negative Influenza Type B Antigen Negative Negative SARS-CoV-2 Antigen (Rapid) Negative NEGATIVE White Blood Count 6.2 4.4-10.8 10^3/uL Red Blood Count 4.02 L 4.5-5.90 10^6/uL Hemoglobin 14.1 13.5-17.5 g/dL Hematocrit 41.2 41.0-53.0 % Mean Corpuscular Volume 102.7 H 80.0-100.0 fL Mean Corpuscular Hemoglobin 35.0 H 28.0-32.0 pg Mean Corpuscular Hemoglobin Concent 34.1 32.0-36.0 g/dL Red Cell Distribution Width 27.4 H 11.8-14.3 % Platelet Count 137 L 140-450 10^3/uL Mean Platelet Volume 7.5 6.9-10.8 fL Neutrophils (%) (Auto) 37.0-80.0 % Lymphocytes (%) (Auto) 10.0-50.0 % Monocytes (%) (Auto) 0.0-12.0 % Basophils (%) (Auto) 0.0-2.0 % Neutrophils # (Auto) 1.6-8.6 10 ^3/uL Lymphocytes # (Auto) 0.4-5.4 10 ^3/uL Monocytes # (Auto) 0-1.3 10 ^3/uL Differential Total Cells Counted 100.0 100 Neutrophils % (Manual) 63 37.0-80.0 Band Neutrophils % (Manual) 1 Lymphocytes % (Manual) 20 10.0-50.0 Monocytes % (Manual) 15 H 0-12 Eosinophils % (Manual) 1 0-7 Basophils % (Manual) 0 0.0-2.0 Metamyelocytes % (manual) 0 Myelocytes % (Manual) 0 Promyelocytes % (Manual) 0 Blast Cells % (Manual) 0 Reactive Lymphocytes 0 Platelet Estimate Adequate Large Platelets Few Anisocytosis (manual) Moderate Macrocytosis Slight Stomatocytes Few Sodium Level 143 136-145 mmol/L Potassium Level 3.5 3.5-5.1 mmol/L Chloride Level 110 H 98-107 mmol/L Carbon Dioxide Level 22 20-31 mmol/L Anion Gap 11 5-15 Blood Urea Nitrogen 9 9-23 mg/dL Creatinine 1.03 0.700-1.30 mg/dL Glomerular Filtration Rate Calc 78 >90 mL/min BUN/Creatinine Ratio 8.7 L 10.0-20.0 Serum Glucose 136 H 74-106 mg/dL Calcium Level 9.7 8.7-10.4 mg/dL Total Bilirubin 1.5 H 0.2-1.0 mg/dL Aspartate Amino Transferase (AST) 35 13-40 U/L Alanine Aminotransferase (ALT) 21 7-40 U/L Alkaline Phosphatase 121 H 46-116 U/L Troponin I High Sensitivity 36 </=54 ng/L Total Protein 6.3 5.7-8.2 g/dL Albumin 4.2 3.2-4.8 g/dL Urine Color Yellow Yellow Urine Clarity Clear Clear Urine pH 5.5 5.0-9.0 Urine Specific [place] 1.016 1.001-1.035 Urine Protein Negative Negative Urine Ketones Negative Negative Urine Blood Negative Negative /uL Urine Nitrite Negative Negative Urine Bilirubin Negative Negative Urine Urobilinogen Normal Negative mg/dL Urine Leukocyte Esterase Negative Negative /uL Urine RBC 1 0 - 3 /hpf Urine Microscopic WBC 1 0-3 /HPF Urine Squamous Epithelial Cells None seen <5 /hpf Urine Bacteria None seen None Seen /hpf Urine Hyaline Casts Mod 0 - 2 /lpf Urine Mucus Few None Seen Urine Glucose Normal Normal mg/dL PATIENT: MADHURI HOUSE ACCT: [id number] UNIT: [id number] : 1955 LOC: ER ROOM / BED: / AGE / SEX: 69 / M ADM STATUS: REG ER SERVICE [id number] ORDERING PHYSICIAN: DEVON GONZALEZ MD PROCEDURE(s): CXRP - CHEST PORTABLE REASON: weakness, cough ORDER NUMBER(s): [id number], ACCESSION NUMBER(s): [id number] CHEST RADIOGRAPH Indication: weakness, cough Technique: Single frontal view of the chest was obtained COMPARISON: XY CHEST PORTABLE on DOS: 02/13/23 FINDINGS: Lines and Tubes: Right chest port in satisfactory position. Lungs: Clear Pleura: No effusion. No pneumothorax. Cardiomediastinal contours: Unremarkable Bones: Unremarkable IMPRESSION: No acute disease. Assessment/Plan Assessment/Plan Generalized weakness Bradycardia History of colon cancer on chemo Plan 1. Admit to telemetry unit 2. Breathing treatment 3. Pain control management 4. Management of fluids and electrolytes 5. Consultation for hospitalist 6. Diagnostic tests chest x-ray 7. DVT prophylaxis-on Eliquis 8. Repeat labs CBC, CMP in a.m. 9. Continue with current medical management 10. Treatment plan discussed with patient and RN. Patient verbalized understanding. Plan discussed with: Patient, Other (RN) My Orders Orders - MARC DE ANDA DNP Procedure Category Date Status Time Aspirin Tablet PHA 07/02/24 Logged 10:00 Atorvastatin (Lipitor) PHA 07/01/24 Logged 22:00 Tamsulosin PHA 07/01/24 Logged Hydrochloride (Flomax) 18:00 Famotidine Injection PHA 07/02/24 Logged (Pepcid Injection) 10:00 Apixaban (Eliquis) PHA 07/01/24 Logged 22:00 Allergies NIKKO 07/01/24 In Process 16:01 Code Status CODE 07/01/24 Transmitted 16:01 Sodium Chloride Lock PHA 07/01/24 Logged (Saline Lock Ns) 22:00 Oxygen Per Hour RT 07/01/24 Transmitted 16:01 Hydrocodone-Acet PHA 07/01/24 Logged 5/325mg Tab ([place] 16:15 Ondansetron Hcl PHA 07/01/24 Logged (Zofran) 16:15 Docusate Sodium PHA 07/01/24 Logged Capsule (Colace 16:15 Fall Risk Precautions NIKKO 07/01/[address] 16:01 Complete Blood Count LAB 07/02/24 Verified 04:00 Comprehensive LAB 07/02/24 Verified Metabolic Panel 04:00 Cardiac DIET 07/01/24 Transmitted Diet-2gna,Lofat,Lochol Dinner Condition: Serious NIKKO 07/01/24 In Process 16:01 Acetaminophen Tablet PHA 07/01/24 Logged (Tylenol Tablet) 16:15 Maintain Bed Rest NIKKO 07/01/24 In Process 16:01 Sequential NIKKO 07/01/24 In Process Compression Device Admit ADMIT 07/01/24 Verified 16:23 Nitroglycerin PHA 07/01/24 Verified Sublingual (Ntrostat 16:30 Morphine Sulfate PHA 5/19/25 Verified Injection 16:30 Stat Ekg For Chest [facility] 07/01/24 Verified Pain 16:23 Notify Md Of Changes [facility] 07/01/24 Verified From Base 16:23 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
[2024-07-01] MEDS ORDERED: NITROGLYCERIN 0.4 MG SL TAB SL PRN (16:30)
[2024-07-01] MEDS ORDERED: MORPHINE SULFATE INJ 2 MG/ml SYRG IV PRN (16:30)
[2024-07-01] MEDS: POTASSIUM CHL 20 Meq TABLET PO ONE (16:47)
[2024-07-01] MEDS: TAMSULOSIN HYDROCHLORIDE 0.4 MG CAP PO SCH (18:42)
--- NOTE | 2024-07-01 19:04 | ECG ---
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
[2024-07-01 19:30] VITALS: PULSE 44; RESP 16; O2SAT 96
[2024-07-01] MEDS: APIXABAN 5 MG TAB PO SCH (21:49)
[2024-07-01] MEDS: SODIUM CHLOR 0.9% PF (SALINE LOCK) 10ML VIAL/SYR IV SCH (21:50)
[2024-07-01] MEDS: ATORVASTATIN 20 MG TAB PO SCH (21:50)
[2024-07-02 06:44] LABS: Alanine Aminotransferase 15 U/L (7-40); Albumin 3.7 g/dL (3.2-4.8); Alkaline Phosphatase 97 U/L (46-116); Anion Gap 9 (5-15); Aspartate Aminotransferase 30 U/L (13-40); Bilirubin, Total 1.1 mg/dL (0.2-1.0); Blood Urea Nitrogen 12 mg/dL (9-23); Calcium 8.9 mg/dL (8.7-10.4); Carbon Dioxide 24 mmol/L (20-31); Glucose 94 mg/dL (74-106); Potassium 3.9 mmol/L (3.5-5.1); Sodium 145 mmol/L (136-145)
[2024-07-02 06:54] LABS: Chloride 112 mmol/L (98-107); Total Protein 5.5 g/dL (5.7-8.2)
[2024-07-02 07:11] LABS: Hemoglobin 12.7 g/dL (13.5-17.5); White Blood Cell 5.9 10^3/uL (4.4-10.8)
[2024-07-02 07:13] LABS: Hematocrit 37.7 % (41.0-53.0); Mean Corpuscular Hgb Conc. 33.8 g/dL (32.0-36.0); Mean Corpuscular Volume 103.5 fL (80.0-100.0); Platelet Count (auto) 122 10^3/uL (140-450); Red Blood Cells 3.65 10^6/uL (4.5-5.90)
[2024-07-02 07:20] LABS: Basophils % (manual) 0 (0.0-2.0); Blast Cells 0; Metamyelocytes % 0; Myelocytes % 0; Promyelocytes % 0; Reactive Lymphocytes 0
[2024-07-02 07:55] VITALS: PULSE 50; RESP 16; O2SAT 96
[2024-07-02 08:37] LABS: Anisocytosis Moderate; Band Neutrophils % (manual) 5; Eosinophils % (manual) 3 (0-7); Lymphocytes % (manual) 23 (10.0-50.0); Macrocytosis Slight; Monocytes % (manual) 17 (0-12); Platelet Estimate Decreased
[2024-07-02 08:38] LABS: Stomatocytes Few
[2024-07-02] MEDS: FAMOTIDINE (10MG/ML) 2ML VL IV SCH (11:00)
[2024-07-02] MEDS: ASPirin 81 mg TAB PO SCH (11:01)
--- NOTE | 2024-07-02 14:46 | DVHPN2 ---
Subjective 69 year old male with h/o colon ca on chemo comes with weakness and diarrhea Changes from previous H/P or p: Changes Eyes: No Pain, No Vision change, No Conjunctivae inflammation, No Eyelid inflammation, No Other, No Redness ENT: No Ear pain, No Ear discharge, No Nose pain, No Nose discharge, No Nose congestion, No Mouth pain, No Mouth swelling, No Throat pain, No Throat swelling, No Other Cardiovascular: No Chest Pain, No Palpitations, No Orthopnea, No Paroxysmal Noc. Dyspnea, No Edema, No Lt Headedness, No Other Respiratory: No Cough, No Dry, No Shortness of breath, No SOB with excertion, No Wheezing, No Hemoptysis, No Pleuritic Pain, No Sputum, No Other Gastrointestinal: No Nausea, No Vomiting, No Abdominal Pain, No Diarrhea, No Constipation, No Melena, No Hematochezia; Other (Colostomy bag in place) Genitourinary: No Dysuria, No Frequency, No Incontinence, No Hematuria, No Retention, No Other Musculoskeletal: No other, No neck pain, No shoulder pain, No arm pain, No back pain, No hand pain, No leg pain, No foot pain Skin: No Rash, No Lesions, No Jaundice, No Bruising, No Other Objective Vitals Vital Signs Date Time Temp Pulse Resp B/P (MAP) Pulse Ox O2 Delivery O2 Flow Rate FiO2 07/02/24 14:00 98.6 62 11 157/100 (119) 98 98.6 07/02/24 13:10 Room Air* 0 21 Intake/Output Intake and Output 07/02/24 07:00 Intake Total 750 ml Balance 750 ml Intake IV Total 750 ml General Appearance: Alert, Oriented X3, Cooperative Lungs: Clear to auscultation, Normal air movement Cardiovascular: Regular rate, Normal S1, Normal S2, No murmurs Abdomen: Normal bowel sounds, Soft, No tenderness, No hepatospenomegaly Extremities: No edema Medications Current Medications Medications Dose Ordered Sig/Landon Route Start Time Stop Time Status Last Admin Dose Admin Aspirin 81 mg DAILY PO 07/02/24 10:00 07/02/24 11:01 81 MG Atorvastatin Calcium 20 mg HS PO 07/01/24 22:00 07/01/24 21:50 20 MG Tamsulosin HCl 0.4 mg QPM PO 07/01/24 18:00 07/01/24 18:42 0.4 MG Famotidine 20 mg DAILY IV 07/02/24 10:00 07/02/24 11:00 20 MG Apixaban 5 mg BID PO 07/01/24 22:00 07/02/24 11:00 5 MG Sodium Chloride 10 ml Q8HR IV 07/01/24 22:00 07/02/24 14:03 10 ML Acetaminophen/ Hydrocodone Bitart 1 tab Q4HP PRN PO 07/01/24 16:15 Ondansetron HCl 4 mg Q4HP PRN IV 07/01/24 16:15 Docusate Sodium 100 mg BIDPRN PRN PO 07/01/24 16:15 Acetaminophen 650 mg Q6HP PRN PO 07/01/24 16:15 Nitroglycerin 0.4 mg Q5MINP PRN SL 07/01/24 16:30 Morphine Sulfate 2 mg Q30M PRN IV 07/01/24 16:30 Laboratory Results Laboratory Tests 07/02/24 06:00 Chemistry Test 07/02/24 06:00 Albumin 3.7 g/dL (3.2-4.8) Calcium Level 8.9 mg/dL (8.7-10.4) Total Protein 5.5 g/dL (5.7-8.2) L LFT Test 07/02/24 06:00 Alanine Aminotransferase (ALT) 15 U/L (7-40) Alkaline Phosphatase 97 U/L (46-116) Aspartate Amino Transferase (AST) 30 U/L (13-40) Total Bilirubin 1.1 mg/dL (0.2-1.0) H Urinalysis Test 07/01/24 11:27 Urine Color Yellow (Yellow) Urine Clarity Clear (Clear) Urine pH 5.5 (5.0-9.0) Urine Specific [place] 1.016 (1.001-1.035) Urine Protein Negative (Negative) Urine Ketones Negative (Negative) Urine Blood Negative /uL (Negative) Urine Nitrite Negative (Negative) Urine Bilirubin Negative (Negative) Urine Urobilinogen Normal mg/dL (Negative) Urine Leukocyte Esterase Negative /uL (Negative) Urine RBC 1 /hpf (0 - 3) Urine Microscopic WBC 1 /HPF (0-3) Urine Squamous Epithelial Cells None seen /hpf (<5) Urine Bacteria None seen /hpf (None Seen) Urine Hyaline Casts Mod /lpf (0 - 2) Urine Mucus Few (None Seen) Urine Glucose Normal mg/dL (Normal) Assessment/Plan Assessment/Plan Generalized weakness Metastatic colon cancer to the liver on chemo Atrial fibrillation on Eliquis History of multiple myeloma in remission Chronic anemia Rule out C. Diff colitis HTN? PLAN: IV fluids Check C. Diff in stools Clear liquids Hydralazine prn IV Monitor closely Plan discussed with: Patient Date of Service: July 02, 2024 Billing Provider: AISHWARYA CAMPOS MD Common Visit Codes: NOT BILLABLE AISHWARYA CAMPOS MD July 02, 2024 14:46
[2024-07-02] MEDS: hydrALAZINE HCL 20 MG/ML VL IV PRN (15:25)
[2024-07-02 17:05] VITALS: BP 138/100; PULSE 84; RESP 18; TEMP 97.5; O2SAT 97
[2024-07-02 17:20] VITALS: BP 138/100; PULSE 78; RESP 18; TEMP 98.6; O2SAT 96; O2SAT 97
[2024-07-02 20:00] VITALS: PULSE 64; PULSE 76; RESP 18; O2SAT 96
[2024-07-02 21:00] VITALS: BP 152/95; PULSE 64; RESP 18; TEMP 97.5; O2SAT 96
[2024-07-03] MEDS: HYDROcodone-ACET 5/325MG TAB PO PRN (00:36)
[2024-07-03 01:00] VITALS: BP 116/75; PULSE 79; RESP 16; TEMP 97.5; O2SAT 98
[2024-07-03 03:59] VITALS: PULSE 64; RESP 18; O2SAT 96
[2024-07-03 05:00] VITALS: BP 146/98; PULSE 58; RESP 16; TEMP 97.9; O2SAT 95
[2024-07-03 06:24] LABS: Anion Gap 10 (5-15); Carbon Dioxide 23 mmol/L (20-31); Potassium 3.7 mmol/L (3.5-5.1); Sodium 142 mmol/L (136-145)
[2024-07-03 06:25] LABS: Calcium 8.8 mg/dL (8.7-10.4)
[2024-07-03 06:30] LABS: Glucose 85 mg/dL (74-106); Magnesium 1.8 mg/dL (1.6-2.6)
[2024-07-03 06:31] LABS: BUN/Creatinine Ratio 13.8 (10.0-20.0); Blood Urea Nitrogen 11 mg/dL (9-23)
[2024-07-03 06:34] LABS: Chloride 109 mmol/L (98-107)
[2024-07-03 06:45] LABS: Hemoglobin 12.4 g/dL (13.5-17.5)
[2024-07-03 06:47] LABS: Hematocrit 37.3 % (41.0-53.0); Mean Corpuscular Hgb Conc. 33.3 g/dL (32.0-36.0); Mean Corpuscular Volume 105.2 fL (80.0-100.0); Platelet Count (auto) 108 10^3/uL (140-450); Red Blood Cells 3.55 10^6/uL (4.5-5.90); White Blood Cell 5.9 10^3/uL (4.4-10.8)
[2024-07-03 06:49] LABS: Red Cell Distribution Width 26.6 % (11.8-14.3)
[2024-07-03 06:50] LABS: Basophils % (manual) 0 (0.0-2.0); Blast Cells 0; Metamyelocytes % 0; Myelocytes % 0; Promyelocytes % 0; Reactive Lymphocytes 0
[2024-07-03 07:57] LABS: Anisocytosis Moderate; Band Neutrophils % (manual) 2; Eosinophils % (manual) 4 (0-7); Lymphocytes % (manual) 11 (10.0-50.0); Macrocytosis Moderate; Monocytes % (manual) 18 (0-12); Platelet Estimate Decreased
[2024-07-03 07:58] LABS: Stomatocytes Few
[2024-07-03 08:00] VITALS: PULSE 62
[2024-07-03 08:52] VITALS: BP 162/93; PULSE 61; RESP 16; TEMP 98.4; O2SAT 96
[2024-07-03] MEDS ORDERED: DOXY1CAP57 PO (11:24)
[2024-07-03] MEDS ORDERED: LOSA-533 PO (11:24)
[2024-07-03 13:00] VITALS: BP 150/97; PULSE 68; RESP 18; TEMP 97.9; O2SAT 99
--- NOTE | 2024-07-03 22:11 | DVHDS2 ---
Discharge Summary Date of Admission July 01, 2024 at 16:23 Date of Discharge: July 03, 2024 Labs/Diagnostic Data: Laboratory Results Test 07/03/24 04:48 07/02/24 06:00 07/01/24 14:23 07/01/24 11:53 White Blood Count 5.9 10^3/uL (4.4-10.8) Red Blood Count 3.55 10^6/uL (4.5-5.90) Hemoglobin 12.4 g/dL (13.5-17.5) Hematocrit 37.3 % (41.0-53.0) Mean Corpuscular Volume 105.2 fL (80.0-100.0) Mean Corpuscular Hemoglobin 35.0 pg (28.0-32.0) Mean Corpuscular Hemoglobin Concent 33.3 g/dL (32.0-36.0) Red Cell Distribution Width 26.6 % (11.8-14.3) Platelet Count 108 10^3/uL (140-450) Mean Platelet Volume 7.9 fL (6.9-10.8) Neutrophils (%) (Auto) % (37.0-80.0) Lymphocytes (%) (Auto) % (10.0-50.0) Monocytes (%) (Auto) % (0.0-12.0) Basophils (%) (Auto) % (0.0-2.0) Neutrophils # (Auto) 10 ^3/uL (1.6-8.6) Lymphocytes # (Auto) 10 ^3/uL (0.4-5.4) Monocytes # (Auto) 10 ^3/uL (0-1.3) Differential Total Cells Counted 100.0 (100) Neutrophils % (Manual) 65 (37.0-80.0) Band Neutrophils % (Manual) 2 Lymphocytes % (Manual) 11 (10.0-50.0) Monocytes % (Manual) 18 (0-12) Eosinophils % (Manual) 4 (0-7) Basophils % (Manual) 0 (0.0-2.0) Metamyelocytes % (manual) 0 Myelocytes % (Manual) 0 Promyelocytes % (Manual) 0 Blast Cells % (Manual) 0 Reactive Lymphocytes 0 Platelet Estimate Decreased Anisocytosis (manual) Moderate Macrocytosis Moderate Stomatocytes Few Sodium Level 142 mmol/L (136-145) Potassium Level 3.7 mmol/L (3.5-5.1) Chloride Level 109 mmol/L (98-107) Carbon Dioxide Level 23 mmol/L (20-31) Anion Gap 10 (5-15) Blood Urea Nitrogen 11 mg/dL (9-23) Creatinine 0.80 mg/dL (0.700-1.30) Glomerular Filtration Rate Calc 95 mL/min (>90) BUN/Creatinine Ratio 13.8 (10.0-20.0) Serum Glucose 85 mg/dL (74-106) Calcium Level 8.8 mg/dL (8.7-10.4) Magnesium Level 1.8 mg/dL (1.6-2.6) Total Bilirubin 1.1 mg/dL (0.2-1.0) Aspartate Amino Transferase (AST) 30 U/L (13-40) Alanine Aminotransferase (ALT) 15 U/L (7-40) Alkaline Phosphatase 97 U/L (46-116) Total Protein 5.5 g/dL (5.7-8.2) Albumin 3.7 g/dL (3.2-4.8) Influenza Type A Antigen Negative (Negative) Influenza Type B Antigen Negative (Negative) SARS-CoV-2 Antigen (Rapid) Negative (NEGATIVE) Large Platelets Few Troponin I High Sensitivity 36 ng/L (</=54) Test 07/01/24 11:27 Urine Color Yellow (Yellow) Urine Clarity Clear (Clear) Urine pH 5.5 (5.0-9.0) Urine Specific [place] 1.016 (1.001-1.035) Urine Protein Negative (Negative) Urine Ketones Negative (Negative) Urine Blood Negative /uL (Negative) Urine Nitrite Negative (Negative) Urine Bilirubin Negative (Negative) Urine Urobilinogen Normal mg/dL (Negative) Urine Leukocyte Esterase Negative /uL (Negative) Urine RBC 1 /hpf (0 - 3) Urine Microscopic WBC 1 /HPF (0-3) Urine Squamous Epithelial Cells None seen /hpf (<5) Urine Bacteria None seen /hpf (None Seen) Urine Hyaline Casts Mod /lpf (0 - 2) Urine Mucus Few (None Seen) Urine Glucose Normal mg/dL (Normal) Other Laboratory Tests 07/03/24 04:48 Brief Hx & Hospital Course: Final diagnoses: Generalized weakness Metastatic colon cancer to the liver on chemo Atrial fibrillation on Eliquis History of multiple myeloma in remission Chronic anemia C diff colitis was ruled out HTN 69-year-old male was admitted due to generalized weakness and loose stools He has a colostomy He is on chemotherapy Who was admitted for possible dehydration but that was ruled out The stool specimen was sent for C diff was negative He was given IV fluids for his generalized weakness His blood pressure however was elevated and therefore he was started on antihypertensive medication On discharge he was given losartan 25 mg daily He takes Lasix at home Continue chemotherapy as scheduled Follow up with his primary care physician as soon as possible and resume other home medications Condition at Discharge: Stable Final Diagnosis/Problems List Generalized weakness Metastatic colon cancer to the liver on chemo Atrial fibrillation on Eliquis History of multiple myeloma in remission Chronic anemia C diff was ruled out Hypertension Discharge Disposition: Home SNF Discharge Will this Physician continue t: No Discharge Instruct/Medications Diet: Cardiac 2g Na,low cholest Activity: No Restrictions, As Tolerated Follow Up/Referral: PCP as soon as possible Medications: Losartan 25 mg p.o. daily Resume the home medications Discharge Statement: "Patient was advised to return to the ER or call 911 if any headaches, dizziness, shortness of breath, chest pain, abdominal pain, bleeding, fevers, or worsening of medical condition. Patient was counseled about treatment plan, medications, possible side effects, patientverbalized understanding. All questions were answered to the best of my ability. This discharge took greater then 30 minutes in planning, reviewing documentation, counseling the patient, and discussing with other team members." ASSESSMENT ASSESSMENT Assessment Generalized weakness Metastatic colon cancer to the liver on chemo Atrial fibrillation on Eliquis History of multiple myeloma in remission Chronic anemia C diff was ruled out Hypertension Date of Service: July 03, 2024 Billing Provider: AISHWARYA CAMPOS MD Common Visit Codes: NOT BILLABLE AISHWARYA CAMPOS MD July 03, 2024 22:11
== END 2024-07-03 15:11 | disposition home or self-care (01) | DRG 375 ==
LOC: ER 11:24 → OVERFLOW 16:23 → TELE-CENTR 07-02 16:58
PROVIDERS: ADMIT Internal Medicine Geriatric Medicine; ATTEND Internal Medicine Geriatric Medicine
DX: C18.9 Malignant neoplasm of colon, unspecified (principal); C78.7 Secondary malignant neoplasm of liver and intrahepatic bile duct; C90.01 Multiple myeloma in remission; I48.91 Unspecified atrial fibrillation; D64.9 Anemia, unspecified; Z20.822 Contact with and (suspected) exposure to COVID-19; I10 Essential (primary) hypertension; Z79.01 Long term (current) use of anticoagulants; Z79.899 Other long term (current) drug therapy; Z82.49 Family history of ischemic heart disease and other diseases of the circulatory system; Z86.73 Personal history of transient ischemic attack (TIA), and cerebral infarction without residual deficits; Z93.3 Colostomy status
CPT/HCPCS: 36415; 71045; 80048; 80053; 81001; 83735; 84484; 85007; 85027; 87426; 87493; 87804; 93005; 96374; 96375; 99291; G0378; J2405; J3490

== ENCOUNTER 2024-08-21 13:07 | Inpatient (IN) | payer MEDICARE, OTHER ==
[~2024-08-21] VITALS: Ht 185.4 cm; Wt 92.6 kg
[~2024-08-21 13:07] MED LIST changes: +DOXY1CAP57 PO; +LOSA-533 PO
--- NOTE | 2024-08-21 15:27 | DVH ---
CHEST RADIOGRAPH Indication: weakness Technique: Single frontal view of the chest was obtained Comparison: XY CHEST PORTABLE on DOS: 07/01/24, XY CHEST PORTABLE on DOS: 02/13/23 FINDINGS: Lines and Tubes: None Lungs: No focal consolidation. Pleura: No effusion. No pneumothorax. Cardiomediastinal contours: Unremarkable Bones: No acute osseous abnormality. IMPRESSION: 1. No acute cardiopulmonary disease.
[2024-08-21 15:42] LABS: Hematocrit 45.9 % (41.0-53.0); Hemoglobin 15.7 g/dL (13.5-17.5); Mean Corpuscular Hemoglobin 37.7 pg (28.0-32.0); Mean Corpuscular Volume 110.5 fL (80.0-100.0)
[2024-08-21 15:49] LABS: Potassium 4.0 mmol/L (3.5-5.1); Sodium 143 mmol/L (136-145)
[2024-08-21 15:50] LABS: Anion Gap 13 (5-15); INR 0.98 (0.9-1.15); Partial Thromboplastin Time 29.1 SEC (24.5-34.5); Prothrombin Time 10.4 sec (9.3-11.8)
[2024-08-21 15:51] LABS: Calcium 9.8 mg/dL (8.7-10.4)
[2024-08-21 15:53] LABS: Carbon Dioxide 20 mmol/L (20-31); Chloride 110 mmol/L (98-107)
[2024-08-21 15:55] LABS: BUN/Creatinine Ratio 18.7 (10.0-20.0)
[2024-08-21 15:59] LABS: Blood Urea Nitrogen 31 mg/dL (9-23); Glucose 127 mg/dL (74-106)
--- NOTE | 2024-08-21 16:38 | ED.PDOC ---
History of Present Illness HPI Comments 69-year-old male who presents with a chief complaint of abnormal labs, weakness, diarrhea. Patient states she was told by his chemo doctor that his platelets are low. Patient is actively vomiting during assessment. Patient has history of extensive metastatic colon cancer and has a colostomy. Patient mentions that he has been having diarrhea. Chief Complaint: Abnormal LAB's Time Seen by MD: 15:44 Primary Care Provider: LAUREN Newton Notes: Medications, Allergies Allergies: Coded Allergies: NO KNOWN ALLERGIES (Unverified , 07/31/18) Home Meds Active Scripts Losartan Potassium (Losartan Potassium) 25 Mg Tab, 1 TAB PO DAILY, #90 TAB 1 Refill Prov:AISHWARYA CAMPOS MD 07/03/24 Doxycycline Monohydrate (Doxycycline Monohydrate) 100 Mg Cap, 1 CAP PO BID, #14 CAP Prov:AISHWARYA CAMPOS MD 07/03/24 Vancomycin HCl (Vancomycin HCl) 125 Mg Cap, 125 MG PO QID for 10 Days, #40 CAP Prov:AISHWARYA CAMPOS MD 04/01/24 Azithromycin (Zithromax Z-Nikhil) 250 Mg Tab, 250 MG PO DAILY, #6 TAB Prov:AISHWARYA CAMPOS MD 02/15/23 Reported Medications Apixaban Base (ELIQUIS) 5 Mg Tab, 1 03/26/24 Oxycodone Hcl (OXYCODONE HCL) 5 Mg Tb 03/26/24 Celecoxib (Celecoxib) 200 Mg Cap, 1 CAP PO DAILY 03/26/24 Ferrous Sulfate (Ferosul) 325 Mg Tab, 1 TAB PO DAILY 03/26/24 Tamsulosin Hcl (Tamsulosin Hcl) 0.4 Mg Cap 03/26/24 Omeprazole (Gnp Omeprazole) 20 Mg Tab, 1 TAB PO DAILY, #90 TAB 1 Refill 08/01/18 Aspirin (Aspir-81) 81 Mg Tab, 1 TAB PO DAILY, #30 TAB 5 Refills 08/01/18 Atorvastatin Calcium (ATORVASTATIN CALCIUM) 20 Mg Tab, 1 TAB PO DAILY, #30 TAB 5 Refills 08/01/18 Celecoxib (CeleBREX CAPSULE) 100 Mg Cp, 2 CAP PO BID, #60 CAP 3 Refills 08/01/18 Allopurinol (Allopurinol) 300 Mg Tab, 300 MG PO DAILY for 30 Days, MG 08/01/18 Apixaban Base (ELIQUIS) 5 Mg Tab, 5 MG PO BID, TAB 08/01/18 Information Source: Patient Mode of Arrival: Ambulatory Severity: Moderate Timing: Days Duration: Since onset Prehospital treatment: None Past Medical History PAST MEDICAL HISTORY: AFIB, Anemia, Cancer, CVA, TIA Surgical History: Tonsillectomy Family History Family History: Unobtainable, Family hx of HTN Social History Smoker: Non-Smoker Alcohol: Occasionally Drugs: Denies Drug Use Lives In: Home Constitutional: reports: weakness; denies: chills, diaphoresis, fatigue, fever, malaise, sweats, others EENTM: denies: blurred vision, double vision, ear bleeding, ear discharge, ear drainage, ear pain, ear ringing, eye pain, eye redness, hearing loss, mouth pain, mouth swelling, nasal discharge, nose bleeding, nose congestion, nose pain, photophobia, tearing, throat pain, throat swelling, voice changes, others Respiratory: denies: cough, hemoptysis, orthopnea, SOB at rest, shortness of breath, SOB with excertion, stridor, wheezing, others Cardiovascular: denies: chest pain, dizzy spells, diaphoresis, Dyspnea on exertion, edema, irregular heart beat, left arm pain, lightheadedness, palpitations, PND, syncope, others Gastrointestinal: reports: diarrhea; denies: abdomen distended, abdominal pain, blood streaked bowels, constipated, dysphagia, difficulty swallowing, hematemesis, melena, nausea, poor appetite, poor fluid intake, rectal bleeding, rectal pain, vomiting, others Genitourinary: denies: burning, dysuria, flank pain, frequency, hematuria, incontinence, penile discharge, penile sore, pain, testicle pain, testicle swelling, urgency, others Neurological: denies: dizziness, fainting, headache, left sided numbness, left sided weakness, numbness, paresthesia, pre-existing deficit, right sided numbness, right sided weakness, seizure, speech problems, tingling, tremors, weakness, others Musculoskeletal: denies: back pain, gout, joint pain, joint swelling, muscle pain, muscle stiffness, neck pain, others Integumetry: denies: bruises, change in color, change in hair/nails, dryness, laceration, lesions, lumps, rash, wounds, others Allergic/Immunocompromised: denies: Difficulty Healing, Frequent Infections, Hives, Itching, others Hematologic/Lymphatic: denies: anemia, blood clots, easy bleeding, easy bruising, swollen glands, others Endocrine: denies: excessive hunger, excessive sweating, excessive thirst, excessive urination, flushing, intolerance to cold, intolerance to heat, unexplained weight gain, unexplained weight loss, others Psychiatric: denies: anxiety, bipolar disorder, depression, hopeless, panic disorder, schizophrenia, sleepless, suicidal, others All Other Systems: Reviewed and Negative ( PER HPI) Physical Exam General Appearance: No Apparent Distress, Normal HEENT: Normal ENT Inspection, Pharynx Normal, TMs Normal Neck: Full Range of Motion, Non-Tender, Normal, Normal Inspection Respiratory: Chest Non-Tender, Lungs Clear, No Accessory Muscle Use, No Respiratory Distress, Normal Breath Sounds Cardiovascular: No Edema, No JVD, No Murmur, No Gallop, Normal Peripheral Pulses, Regular Rate/Rhythm Breast Exam: Deferred Gastrointestinal: No Organomegaly, Non Tender, No Pulsatile Mass, Normal Bowel Sounds, Soft Genitalia: Deferred Pelvic: Deferred Rectal: Deferred Extremities: No calf tenderness, Normal capillary refill, Normal inspection, Normal range of motion, Non-tender, No pedal edema Musculoskeletal : Apperance: Normal Neurologic: Alert, pet sitting II-XII nml as Tested, No Motor Deficits, Normal Affect, Normal Mood, No Sensory Deficits Cerebellar Function: Normal Reflexes: Normal Skin: Dry, Normal Color, Warm Lymphatic: No Adenopathy Was a procedure done? Was a procedure done?: No Differential Dx Considerations may include: Electrolyte abnormalities, worsening cancer, infectious etiology, viral syndrome X-Ray, Labs, Meds, VS Vital Signs Date Time Temp Pulse Resp B/P (MAP) Pulse Ox O2 Delivery O2 Flow Rate FiO2 08/21/24 16:58 85 18 96 Room Air* 0 21 08/21/24 16:58 98.0 85 19 117/75 (89) 95 98.0 08/21/24 16:57 85 18 117/75 08/21/24 13:30 98.6 81 18 105/66 (79) 98 98.6 Lab Test 08/21/24 16:30 08/21/24 15:11 Range/Units Troponin I High Sensitivity 22 23 </=54 ng/L White Blood Count 6.2 4.4-10.8 10^3/uL Red Blood Count 4.16 L 4.5-5.90 10^6/uL Hemoglobin 15.7 13.5-17.5 g/dL Hematocrit 45.9 41.0-53.0 % Mean Corpuscular Volume 110.5 H 80.0-100.0 fL Mean Corpuscular Hemoglobin 37.7 H 28.0-32.0 pg Mean Corpuscular Hemoglobin Concent 34.2 32.0-36.0 g/dL Red Cell Distribution Width 22.5 H 11.8-14.3 % Platelet Count 142 140-450 10^3/uL Mean Platelet Volume 8.5 6.9-10.8 fL Neutrophils (%) (Auto) 37.0-80.0 % Lymphocytes (%) (Auto) 10.0-50.0 % Monocytes (%) (Auto) 0.0-12.0 % Basophils (%) (Auto) 0.0-2.0 % Neutrophils # (Auto) 1.6-8.6 10 ^3/uL Lymphocytes # (Auto) 0.4-5.4 10 ^3/uL Monocytes # (Auto) 0-1.3 10 ^3/uL Differential Total Cells Counted 100.0 100 Neutrophils % (Manual) 48 37.0-80.0 Band Neutrophils % (Manual) 10 Lymphocytes % (Manual) 15 10.0-50.0 Monocytes % (Manual) 25 H 0-12 Eosinophils % (Manual) 1 0-7 Basophils % (Manual) 0 0.0-2.0 Metamyelocytes % (manual) 1 Myelocytes % (Manual) 0 Promyelocytes % (Manual) 0 Blast Cells % (Manual) 0 Reactive Lymphocytes 0 Platelet Estimate Adequate Anisocytosis (manual) Moderate Macrocytosis Marked Prothrombin Time 10.4 9.3-11.8 sec Prothrombin Time INR 0.98 0.9-1.15 Activated Partial Thromboplast Time 29.1 24.5-34.5 SEC Sodium Level 143 136-145 mmol/L Potassium Level 4.0 3.5-5.1 mmol/L Chloride Level 110 H 98-107 mmol/L Carbon Dioxide Level 20 20-31 mmol/L Anion Gap 13 5-15 Blood Urea Nitrogen 31 H 9-23 mg/dL Creatinine 1.66 H 0.700-1.30 mg/dL Glomerular Filtration Rate Calc 44 >90 mL/min BUN/Creatinine Ratio 18.7 10.0-20.0 Serum Glucose 127 H 74-106 mg/dL Calcium Level 9.8 8.7-10.4 mg/dL Current Medications Medications (Trade) Dose Ordered Sig/Landon Route Start Time Stop Time Status Last Admin Sodium Chloride 1,000 ml @ 1,000 mls/hr Q1H ONCE IV 08/21/24 16:00 08/21/24 16:59 DC 08/21/24 16:55 Morphine Sulfate 4 mg ONCE ONCE IV 08/21/24 16:00 08/21/24 16:01 DC 08/21/24 16:57 Ondansetron HCl (Zofran) 4 mg ONCE ONCE IV 08/21/24 16:00 08/21/24 16:01 DC 08/21/24 16:54 Pantoprazole Sodium (Protonix) 40 mg ONCE ONCE IV 08/21/24 16:00 08/21/24 16:01 DC 08/21/24 16:54 Time of 1ST Reevaluation: 16:14 Reevaluation 1ST: Unchanged Patient Education/Counseling: Diagnosis, Treatment, Prognosis Family Education/Counseling: Diagnosis, Treatment, Prognosis SEPSIS Sepsis Screen Date sepsis recognized/suspect: Aug 21, 2024 Time Sepsis recognized/suspect: 1329 Recent Procedure: No On Antibiotic Therapy: No Respiratory Rate >20: No Heart Rate >90: No Temp<36 C (96.8 F) or >38.3 C: No SBP <90 or MAP <65 mmHG: No New Acute Mental Status Change: No Is the patient on CPAP, BIPAP,: No Physician Orders Urinalysis (08/21/24 14:55) Chest Portable (08/21/24 14:55) Troponin-I Hs (08/21/24 17:55) Ok To Access Sandra-Cath (08/21/24 15:48) Vital Signs Date Time Temp Pulse Resp B/P (MAP) Pulse Ox O2 Delivery O2 Flow Rate FiO2 08/21/24 16:58 85 18 96 Room Air* 0 21 08/21/24 16:58 98.0 85 19 117/75 (89) 95 98.0 08/21/24 16:57 85 18 117/75 08/21/24 13:30 98.6 81 18 105/66 (79) 98 98.6 Laboratory Tests Test 08/21/24 15:11 White Blood Count 6.2 10^3/uL (4.4-10.8) Medications Medications Dose Ordered Sig/Landon Route Start Time Stop Time Status Last Admin Dose Admin Morphine Sulfate 4 mg ONCE ONCE IV 08/21/24 16:00 08/21/24 16:01 DC 08/21/24 16:57 Ondansetron HCl 4 mg ONCE ONCE IV 08/21/24 16:00 08/21/24 16:01 DC 08/21/24 16:54 Pantoprazole Sodium 40 mg ONCE ONCE IV 08/21/24 16:00 08/21/24 16:01 DC 08/21/24 16:54 Sodium Chloride 1,000 ml @ 1,000 mls/hr Q1H ONCE IV 08/21/24 16:00 08/21/24 16:59 DC 08/21/24 16:55 Departure 1 Departure Time of Disposition: 17:53 (Patient with a worsening weakness and general declining health. Patient's labs are better than expected). We will admit patient for further workup and expert consultation.) Impression: Primary Impression: Generalized weakness Additional Impression: Malignancy Disposition: ADMITTED INPATIENT Admit to: Med Surg Condition: Serious Critical Care Note Critical Care Time?: No Stability Stability form required: No Heart Score Heart Score: Heart Score Response (Comments) Value History N/A 0 EKG N/A 0 Age N/A 0 Risk Factors N/A 0 Troponin N/A 0 Total 0 I personally scribed for CATHERINE GRAHAM MD ([email or web address]) on 08/21/24 at 16:38. Electronically submitted by Mark Chavis ([email or web address]). CATHERINE GRAHAM MD Aug 21, 2024 16:38
[2024-08-21 16:51] LABS: Total Cells Counted 100.0 (100)
[2024-08-21 16:52] LABS: Anisocytosis Moderate; Macrocytosis Marked
[2024-08-21] MEDS: ONDANSETRON HCL 4 MG/2 ML VIAL IV ONE (16:54)
[2024-08-21] MEDS: PANTOPRAZOLE 40 MG/10 ML VIAL INJ IV ONE (16:54)
[2024-08-21] MEDS: SODIUM CHLORIDE 0.9% 1,000 ML IV ONE (16:55)
[2024-08-21] MEDS: MORPHINE SULFATE 4 MG/ML SYR/VIAL IV ONE (16:57)
[2024-08-21 16:58] VITALS: PULSE 85; RESP 18; O2SAT 96
[2024-08-21] MEDS ORDERED: MORPHINE SULFATE INJ 2 MG/ml SYRG IV PRN (21:45)
[2024-08-21] MEDS ORDERED: ONDANSETRON HCL 4 MG/2 ML VIAL IV PRN (21:45)
[2024-08-21] MEDS ORDERED: NITROGLYCERIN 0.4 MG SL TAB SL PRN (21:45)
--- NOTE | 2024-08-21 21:54 | DVHHP2 ---
History of Present Illness History of Present Illness This is a 69-year-old male with past medical history of A-Fib Eliquis, Anemia, Colon cancer with metastasis diagnosed on 2023 underwent colostomy procedure 12/2023, CVA 2017 , TIA ,Gout, HLD, HTN, GERD, BPH came with the complain of diarrhea for 2 weeks which is worsen for last 2 days which is liquid in consistency, occasional dark green and orange color but no blood mixed with stool. He also complain generalized weakness, nausea and one episode of vomiting today which contain food materials but no blood mixed with vomitus. He had exertional shortness of breath this limits to walk in a block, currently on chemotherapy for metastatic colon cancer, his chemotherapy scheduled was yesterday but cancelled due to thrombocytopenia. History of IgA kappa multiple myeloma with lytic bone lesions diagnosed in July 2018, underwent chemotherapy with VRD. Then had stem cell transplant in March 2019 at [facility]. Then took Revlimid maintenance from April 2020 and stopped in early 2022. Follow up with [facility]ology [facility] [place]. Patient discharged from [facility] 08/02/2024 similar symptoms. Daily denies any headache, fever, chest pain, SOB, dysuria. PAST MEDICAL HISTORY: A-Fib Eliquis, Anemia, Colon cancer with metastasis diagnosed on 2023 underwent colostomy procedure 12/2023, CVA 2016 , TIA gout, HLD, HTN, GERD, BPH Surgical History: Colon cancer with metastasis diagnosed on 2023 underwent colostomy procedure 12/2023 Family History: Unobtainable, Family hx of HTN Smoker: Non-Smoker Alcohol: Occasionally Drugs: Denies Drug Use Lives In: Home Allergy: No known allergy PCP: JOSE Solomon MD Review of Systems Constitutional: No: Fever, Chills, Sweats, Weakness, Malaise, Other Eyes: No: Pain, Vision change, Conjunctivae inflammation, Eyelid inflammation, Other, Redness ENT: No: Ear pain, Ear discharge, Nose pain, Nose discharge, Nose congestion, Mouth pain, Mouth swelling, Throat pain, Throat swelling, Other Respiratory: No: Cough, Dry, Shortness of breath, SOB with excertion, Wheezing, Hemoptysis, Pleuritic Pain, Sputum, Wheezing, Other Cardiovascular: No: Chest Pain, Palpitations, Orthopnea, Paroxysmal Noc. Dyspnea, Edema, Lt Headedness, Other Gastrointestinal: Nausea, Vomiting, Diarrhea Genitourinary: No Dysuria, No Frequency, No Incontinence, No Hematuria, No Retention; Other (From a bag in place) Musculoskeletal: No: other, neck pain, shoulder pain, arm pain, back pain, hand pain, leg pain, foot pain Skin: No: Rash, Lesions, Jaundice, Bruising, Other Neurological: Weakness; No: Numbness, Incoordination, Change in speech, Confusion, Seizures, Other Allergies: Coded Allergies: NO KNOWN ALLERGIES (Unverified , 07/31/18) Medications Current Medications Medications Dose Ordered Sig/Landon Route Start Time Stop Time Status Last Admin Dose Admin Nitroglycerin 0.4 mg Q5MINP PRN SL 08/21/24 21:45 UNV Morphine Sulfate 2 mg Q30M PRN IV 08/21/24 21:45 UNV Sodium Chloride 1,000 ml @ 100 mls/hr Q10H IV 08/21/24 21:45 UNV Famotidine 40 mg/ Sodium Chloride 104 ml @ 416 mls/hr DAILY IV 08/22/24 10:00 UNV Enoxaparin Sodium 30 mg DAILY SC 08/22/24 10:00 UNV Ondansetron HCl 4 mg Q6HPRN PRN IV 08/21/24 21:45 UNV Metronidazole 100 ml @ 100 mls/hr Q8HR IV 08/21/24 22:00 UNV Exam Vital Signs Vital Signs Date Time Temp Pulse Resp B/P (MAP) Pulse Ox O2 Delivery O2 Flow Rate FiO2 08/21/24 16:58 85 18 96 Room Air* 0 21 08/21/24 16:58 98.0 117/75 (89) 98.0 General Appearance: Oriented X3, Cooperative, No acute distress HEENT: Atraumatic, PERRLA, EOMI Respiratory: Clear to auscultation, Normal air movement Cardiovascular: Regular rate, Normal S1, Normal S2, No murmurs Abdominal: Normal bowel sounds, Soft, No masses, Other (Mild tender on deep palpation, colostomy bag in place) Extremities: No clubbing, No cyanosis, No edema, Normal pulses Skin: No rashes, No breakdown (Chronic ischemic changes bilateral lower extremities) Neuro: Normal speech, Strength at 5/5 X4 ext Labs/Xrays Labs Test 08/21/24 18:08/21/24 15:11 Range/Units Troponin I High Sensitivity 21 </=54 ng/L White Blood Count 6.2 4.4-10.8 10^3/uL Red Blood Count 4.16 L 4.5-5.90 10^6/uL Hemoglobin 15.7 13.5-17.5 g/dL Hematocrit 45.9 41.0-53.0 % Mean Corpuscular Volume 110.5 H 80.0-100.0 fL Mean Corpuscular Hemoglobin 37.7 H 28.0-32.0 pg Mean Corpuscular Hemoglobin Concent 34.2 32.0-36.0 g/dL Red Cell Distribution Width 22.5 H 11.8-14.3 % Platelet Count 142 140-450 10^3/uL Mean Platelet Volume 8.5 6.9-10.8 fL Neutrophils (%) (Auto) 37.0-80.0 % Lymphocytes (%) (Auto) 10.0-50.0 % Monocytes (%) (Auto) 0.0-12.0 % Basophils (%) (Auto) 0.0-2.0 % Neutrophils # (Auto) 1.6-8.6 10 ^3/uL Lymphocytes # (Auto) 0.4-5.4 10 ^3/uL Monocytes # (Auto) 0-1.3 10 ^3/uL Differential Total Cells Counted 100.0 100 Neutrophils % (Manual) 48 37.0-80.0 Band Neutrophils % (Manual) 10 Lymphocytes % (Manual) 15 10.0-50.0 Monocytes % (Manual) 25 H 0-12 Eosinophils % (Manual) 1 0-7 Basophils % (Manual) 0 0.0-2.0 Metamyelocytes % (manual) 1 Myelocytes % (Manual) 0 Promyelocytes % (Manual) 0 Blast Cells % (Manual) 0 Reactive Lymphocytes 0 Platelet Estimate Adequate Anisocytosis (manual) Moderate Macrocytosis Marked Prothrombin Time 10.4 9.3-11.8 sec Prothrombin Time INR 0.98 0.9-1.15 Activated Partial Thromboplast Time 29.1 24.5-34.5 SEC Sodium Level 143 136-145 mmol/L Potassium Level 4.0 3.5-5.1 mmol/L Chloride Level 110 H 98-107 mmol/L Carbon Dioxide Level 20 20-31 mmol/L Anion Gap 13 5-15 Blood Urea Nitrogen 31 H 9-23 mg/dL Creatinine 1.66 H 0.700-1.30 mg/dL Glomerular Filtration Rate Calc 44 >90 mL/min BUN/Creatinine Ratio 18.7 10.0-20.0 Serum Glucose 127 H 74-106 mg/dL Calcium Level 9.8 8.7-10.4 mg/dL SEPSIS Sepsis Screen Date sepsis recognized/suspect: Aug 21, 2024 Time Sepsis recognized/suspect: 1329 Recent Procedure: No On Antibiotic Therapy: No Respiratory Rate >20: No Heart Rate >90: No Temp<36 C (96.8 F) or >38.3 C: No SBP <90 or MAP <65 mmHG: No New Acute Mental Status Change: No Is the patient on CPAP, BIPAP,: No Physician Orders Urinalysis (08/21/24 14:55) Chest Portable (08/21/24 14:55) Ok To Access Sandra-Cath (08/21/24 15:48) Admit (08/21/24 21:42) Nitroglycerin Sublingual (Ntrostat Subli (08/21/24 21:45) Morphine Sulfate Injection (08/21/24 21:45) Clostridium Difficile Toxin (08/21/24 21:42) Sodium Chloride 0.9% (08/21/24 21:45) Famotidine Injection (Pepcid Injection) (08/22/24 10:00) Enoxaparin Sodium (Lovenox) (08/22/24 10:00) Ondansetron Hcl (Zofran) (08/21/24 21:45) Metronidazole 500mg/100ml (Flagyl 500mg/ (08/21/24 21:45) Metronidazole 500mg/100ml (Flagyl 500mg/ (08/21/24 22:00) Vital Signs Date Time Temp Pulse Resp B/P (MAP) Pulse Ox O2 Delivery O2 Flow Rate FiO2 08/21/24 16:58 85 18 96 Room Air* 0 21 08/21/24 16:58 98.0 85 19 117/75 (89) 95 98.0 08/21/24 16:57 85 18 117/75 Laboratory Tests Test 08/21/24 15:11 White Blood Count 6.2 10^3/uL (4.4-10.8) Medications Medications Dose Ordered Sig/Landon Route Start Time Stop Time Status Last Admin Dose Admin Morphine Sulfate 4 mg ONCE ONCE IV 08/21/24 16:00 08/21/24 16:01 DC 08/21/24 16:57 4 MG Ondansetron HCl 4 mg ONCE ONCE IV 08/21/24 16:00 08/21/24 16:01 DC 08/21/24 16:54 4 MG Pantoprazole Sodium 40 mg ONCE ONCE IV 08/21/24 16:00 08/21/24 16:01 DC 08/21/24 16:54 40 MG Sodium Chloride 1,000 ml @ 1,000 mls/hr Q1H ONCE IV 08/21/24 16:00 08/21/24 16:59 DC 08/21/24 16:55 1,000 MLS/HR Assessment/Plan Assessment/Plan #ANNE-MARIE due to vasomotor nephropathy -Patient came with diarrhea, weakness, vomiting -On admission serum creatinine 1.66, baseline 0.80 -AG 13, eGFR 44 -NSS IV 100 cc/hours -Monitor renal function -Avoid nephrotoxic drugs -Hold home medication Lasix for now -urine analysis order # Gastroenteritis due to viral/ bacterial/ chemotherapy-induced -patient came with diarrhea and vomiting -currently on chemotherapy due to metastatic colon cancer -ondansetron 4 mg IV q.6 p.r.n. -NSS IV 100 cc/hours -start metronidazole 500 mg IV stat and Q8h -stool for C. diff will follow # Persistent A-Fib on Eliquis -continue Eliquis 5 mg p.o. b.i.d. #Anemia of chronic disease -Hemoglobin 15.7, no signs symptoms of active bleeding -MCV 110.5 -RDW 22.9 -VITAMIN B12 AND FOLIC ACID LEVEL order #Colon cancer with metastasis diagnosed on 2023 underwent colostomy procedure 12/2023 - Follow up with [facility]. -Received IV chemotherapy every 5 weeks and continue p.o. anticancer drugs as per patient #CVA 2017 , TIA -CONTINUE ELIQUIS 5 MG B.I.D. -no residual weakness #Gout -Hold home medication allopurinol 300 mg p.o. due to ANNE-MARIE # HYPERLIPIDEMIA -Atorvastatin 40 mg p.o. daily # Essential hypertension -Will start DASH diet -LOSARTAN 25 mg p.o. daily hold now due to ANNE-MARIE #GERD -Home medication omeprazole 20 mg daily -Famotidine 20 mg p.o. daily #BPH -Tamsulosin 0.4 mg p.o. daily DIET: Clear liquid diet GI prophylaxis: Famotidine 20 mg IV b.i.d. DVT prophylaxis: Eliquis 5 mg p.o. b.i.d. Goals of care discussions, more than 26 minutes spent. Full code status. Case discussed with Dr. Hatfield Plan discussed with: Patient, Other (Nurse) My Orders Orders - JAKE MONTEMAYOR Procedure Category Date Status Time Admit ADMIT 08/21/24 Transmitted 21:42 Nitroglycerin PHA 08/21/24 Logged Sublingual (Ntrostat 21:45 Morphine Sulfate PHA 08/21/24 Logged Injection 21:45 Clostridium Difficile DELFINA 08/21/24 Logged Toxin 21:42 Sodium Chloride 0.9% PHA 08/21/24 Logged 21:45 Famotidine Injection PHA 08/22/24 Logged (Pepcid Injection) 10:00 Enoxaparin Sodium PHA 08/22/24 Logged (Lovenox) 10:00 Ondansetron Hcl PHA 08/21/24 Logged (Zofran) 21:45 Metronidazole PHA 08/21/24 Logged 500mg/100ml (Flagyl 21:45 Metronidazole PHA 08/21/24 Logged 500mg/100ml (Flagyl 22:00 Date of Service: Aug 21, 2024 Billing Provider: MICHAEL HATFIELD MD Common Visit Codes: [id number] INP/OBS CARE (HIGH) Secondary Visit Codes: [id number] CARE PLAN 30 MINUTES JAKE MONTEMAYOR Aug 21, 2024 21:54
[2024-08-22] VITALS (8 sets, daily range): BP systolic 98–115; BP diastolic 62–81; PULSE 53–75; RESP 16–20; TEMP 97–98.6; O2SAT 98–100
[2024-08-22] MEDS: SODIUM CHLORIDE 0.9% 1,000 ML IV SCH (02:20)
[2024-08-22] MEDS ORDERED: ENOXAPARIN SOD 30 MG/0.3 ML SYRINGE SC SCH (10:00)
[2024-08-22] MEDS: APIXABAN 5 MG TAB PO SCH (10:09)
[2024-08-22] MEDS: FAMOTIDINE INJECTION 40 MG in SODIUM CHL 0.9% 100 ML IV SCH (10:09)
--- NOTE | 2024-08-22 16:34 | DVHPN2 ---
Subjective Patient is seen and evaluated. Admitted yesterday for diarrhea through his colostomy bag. Feels better today. Less diarrhea today. Changes from previous H/P or p: No Changes Eyes: No Pain, No Vision change, No Conjunctivae inflammation, No Eyelid inflammation, No Other, No Redness ENT: No Ear pain, No Ear discharge, No Nose pain, No Nose discharge, No Nose congestion, No Mouth pain, No Mouth swelling, No Throat pain, No Throat swelling, No Other Cardiovascular: No Chest Pain, No Palpitations, No Orthopnea, No Paroxysmal Noc. Dyspnea, No Edema, No Lt Headedness, No Other Respiratory: No Cough, No Dry, No Shortness of breath, No SOB with excertion, No Wheezing, No Hemoptysis, No Pleuritic Pain, No Sputum, No Other Gastrointestinal: Nausea, Vomiting, Diarrhea Genitourinary: No Dysuria, No Frequency, No Incontinence, No Hematuria, No Retention; Other (From a bag in place) Musculoskeletal: No other, No neck pain, No shoulder pain, No arm pain, No back pain, No hand pain, No leg pain, No foot pain Skin: No Rash, No Lesions, No Jaundice, No Bruising, No Other Objective Vitals Vital Signs Date Time Temp Pulse Resp B/P (MAP) Pulse Ox O2 Delivery O2 Flow Rate FiO2 08/22/24 09:00 97.0 65 16 100/71 (81) 98 97.0 08/22/24 08:00 Room Air* 0 21 Intake/Output Intake and Output 08/22/24 07:00 Intake Total 1000 ml Balance 1000 ml Intake Oral 0 ml IV Total 1000 ml Exam Alert awake oriented x3. HEENT neck supple no JVD. Comfortable in bed without distress. Heart regular rate and rhythm S1-S2. Lungs fair air movement without rales wheezes. Abdomen soft nontender positive bowel sounds. Colostomy bag has a semi formed brown stool. No foul smell noted. Outpatient extremities no edema positive pulses. Medications Current Medications Medications Dose Ordered Sig/Landon Route Start Time Stop Time Status Last Admin Dose Admin Nitroglycerin 0.4 mg Q5MINP PRN SL 08/21/24 21:45 Morphine Sulfate 2 mg Q30M PRN IV 08/21/24 21:45 Sodium Chloride 1,000 ml @ 100 mls/hr Q10H IV 08/21/24 21:45 08/22/24 09:00 100 MLS/HR Famotidine 40 mg/ Sodium Chloride 104 ml @ 416 mls/hr DAILY IV 08/22/24 10:00 08/22/24 10:09 416 MLS/HR Ondansetron HCl 4 mg Q6HPRN PRN IV 08/21/24 21:45 Apixaban 5 mg BID PO 08/22/24 10:00 08/22/24 10:09 5 MG Aspirin 81 mg DAILY PO 08/22/24 10:00 08/22/24 10:09 81 MG Atorvastatin Calcium 40 mg HS PO 08/22/24 22:00 Tamsulosin HCl 0.4 mg QPM PO 08/22/24 18:00 Metronidazole 100 ml @ 100 mls/hr Q8H IV 08/22/24 10:00 08/22/24 10:36 100 MLS/HR Laboratory Results Laboratory Tests 08/21/24 15:11 Assessment/Plan Assessment/Plan We will send stool cultures and C diff given his history of diarrhea. Continue Flagyl empirically for now. Continue IV hydration and supportive care and treatment as he is on. His further clinical management per clinical course and stool study results. Discussed with the patient. Plan discussed with: Patient, Other My Orders Orders - PATRICIA PAULINO MD Procedure Category Date Status Time Clear Liq Diet DIET 08/22/24 Transmitted Lunch Stool Bacterial DELFINA 08/22/24 In Process Culture 12:30 Stool Wbc LAB 08/22/24 In Process 12:30 Basic Metabolic Panel LAB 08/23/24 Verified 04:00 Complete Blood Count LAB 08/23/24 Verified 04:00 Problem List: (1) History of colon cancer (2) Generalized weakness Date of Service: Aug 22, 2024 Billing Provider: PATRICIA PAULINO MD Common Visit Codes: [id number] INP/OBS CARE(MOD) PATRICIA PAULINO MD Aug 22, 2024 16:33
[2024-08-22] MEDS: TAMSULOSIN HYDROCHLORIDE 0.4 MG CAP PO SCH (18:07)
[2024-08-22] MEDS: ATORVASTATIN 20 MG TAB PO SCH (21:45)
[2024-08-23] VITALS (8 sets, daily range): BP systolic 105–126; BP diastolic 68–79; PULSE 53–70; RESP 16–20; TEMP 97.4–98.6; O2SAT 97–99
[2024-08-23 06:35] LABS: Hematocrit 35.8 % (41.0-53.0); Hemoglobin 12.0 g/dL (13.5-17.5); Mean Corpuscular Hemoglobin 38.0 pg (28.0-32.0); Mean Corpuscular Volume 113.5 fL (80.0-100.0); Nucleated Red Blood Cells % 0.2 %
[2024-08-23 06:40] LABS: Anion Gap 11 (5-15); Sodium 140 mmol/L (136-145)
[2024-08-23 06:46] LABS: BUN/Creatinine Ratio 17.4 (10.0-20.0); Blood Urea Nitrogen 21 mg/dL (9-23); Glucose 82 mg/dL (74-106)
[2024-08-23 06:48] LABS: Calcium 8.3 mg/dL (8.7-10.4); Carbon Dioxide 16 mmol/L (20-31); Chloride 113 mmol/L (98-107); Potassium 3.3 mmol/L (3.5-5.1)
[2024-08-23] MEDS: POTASSIUM CHL 20MEQ/100ML 100 ML IV ONE (13:19)
[2024-08-23] MEDS: POTASSIUM CHL 20 Meq TABLET PO ONE (13:19)
[2024-08-23] MEDS: CHOLESTYRAMINE 4 GM POWDER PO SCH (13:22)
[2024-08-24 00:57] VITALS: BP 136/81; PULSE 60; RESP 17; TEMP 97.8; O2SAT 99
[2024-08-24 05:13] LABS: Hematocrit 33.8 % (41.0-53.0); Hemoglobin 11.6 g/dL (13.5-17.5); Mean Corpuscular Hemoglobin 37.5 pg (28.0-32.0); Mean Corpuscular Volume 109.7 fL (80.0-100.0)
[2024-08-24 05:19] VITALS: BP 128/85; PULSE 57; RESP 16; TEMP 98.7; O2SAT 99
[2024-08-24 05:19] LABS: Anion Gap 10 (5-15); Carbon Dioxide 20 mmol/L (20-31); Potassium 3.9 mmol/L (3.5-5.1); Sodium 145 mmol/L (136-145)
[2024-08-24 05:21] LABS: Calcium 8.8 mg/dL (8.7-10.4); Chloride 115 mmol/L (98-107)
[2024-08-24 05:25] LABS: Glucose 98 mg/dL (74-106)
[2024-08-24 05:26] LABS: BUN/Creatinine Ratio 14.4 (10.0-20.0); Blood Urea Nitrogen 17 mg/dL (9-23)
[2024-08-24 05:29] LABS: Magnesium 1.6 mg/dL (1.6-2.6)
[2024-08-24 05:41] LABS: Total Cells Counted 100.0 (100)
[2024-08-24 08:20] VITALS: BP 128/87; PULSE 69; RESP 21; TEMP 96.8; O2SAT 99
[2024-08-24] MEDS: FAMOTIDINE (10MG/ML) 2ML VL IV SCH (09:43)
[2024-08-24 12:56] VITALS: BP 115/69; PULSE 55; RESP 19; TEMP 98.6; O2SAT 99
--- NOTE | 2024-08-24 13:23 | DVHPN2 ---
Subjective Patient is seen and evaluated. Still having some loose stool through ostomy. Changes from previous H/P or p: No Changes Eyes: No Pain, No Vision change, No Conjunctivae inflammation, No Eyelid inflammation, No Other, No Redness ENT: No Ear pain, No Ear discharge, No Nose pain, No Nose discharge, No Nose congestion, No Mouth pain, No Mouth swelling, No Throat pain, No Throat swelling, No Other Cardiovascular: No Chest Pain, No Palpitations, No Orthopnea, No Paroxysmal Noc. Dyspnea, No Edema, No Lt Headedness, No Other Respiratory: No Cough, No Dry, No Shortness of breath, No SOB with excertion, No Wheezing, No Hemoptysis, No Pleuritic Pain, No Sputum, No Other Gastrointestinal: Nausea, Vomiting, Diarrhea Genitourinary: Other Musculoskeletal: No other, No neck pain, No shoulder pain, No arm pain, No back pain, No hand pain, No leg pain, No foot pain Skin: No Rash, No Lesions, No Jaundice, No Bruising, No Other Objective Vitals Vital Signs Date Time Temp Pulse Resp B/P (MAP) Pulse Ox O2 Delivery O2 Flow Rate FiO2 08/24/24 12:56 98.6 55 19 115/69 (84) 99 98.6 08/24/24 08:00 Room Air* 0 21 Intake/Output Intake and Output 08/24/24 07:00 Intake Total 2344 ml Balance 2344 ml Intake Oral 1640 ml IV Total 704 ml # Voids 6 # Bowel Movements 6 Exam Alert awake oriented x3. HEENT neck supple no JVD. Comfortable in bed without distress. Heart regular rate and rhythm S1-S2. Lungs fair air movement without rales wheezes. Abdomen soft nontender positive bowel sounds. Colostomy bag has a semi formed brown stool. No foul smell noted. Outpatient extremities no edema positive pulses. Medications Current Medications Medications Dose Ordered Sig/Landon Route Start Time Stop Time Status Last Admin Dose Admin Nitroglycerin 0.4 mg Q5MINP PRN SL 08/21/24 21:45 Morphine Sulfate 2 mg Q30M PRN IV 08/21/24 21:45 Ondansetron HCl 4 mg Q6HPRN PRN IV 08/21/24 21:45 Atorvastatin Calcium 40 mg HS PO 08/22/24 22:00 08/23/24 21:32 40 MG Tamsulosin HCl 0.4 mg QPM PO 08/22/24 18:00 08/23/24 17:31 0.4 MG Cholestyramine Resin 4 gm Q6HR PO 08/23/24 13:45 08/24/24 12:00 4 GM Famotidine 20 mg DAILY IV 08/24/24 10:00 08/24/24 09:43 20 MG Diphenoxylate HCl/ Atropine 2.5 mg QPM PO 08/24/24 18:00 Laboratory Results Laboratory Tests 08/24/24 04:49 Chemistry Test 08/24/24 04:49 Calcium Level 8.8 mg/dL (8.7-10.4) Magnesium Level 1.6 mg/dL (1.6-2.6) Microbiology Microbiology Date/Time Source Procedure Growth Status 08/22/24 14:51 Stool Stool Culture - Preliminary Resulted 08/22/24 14:51 Stool Shiga Toxin I & II - Final Resulted Assessment/Plan Assessment/Plan Patient is still having some loose stool through the ostomy. However his infectious workup for stool is negative. We will DC the antibiotics. Questran to bulk the stool. Discharge plan for home tomorrow given he is reluctant to go home today. No changes to present management otherwise. Discussed with the patient's nurse regarding care plan. Plan discussed with: Patient My Orders Orders - PATRICIA PAULINO MD Procedure Category Date Status Time Complete Blood Count LAB 08/25/24 Verified 04:00 Diphenoxylate/Atropine PHA 08/24/24 In Process Tablet (Lomotil T 18:00 Date of Service: Aug 24, 2024 Billing Provider: PATRICIA PAULINO MD Common Visit Codes: [id number] INP/OBS CARE(MOD) PATRICIA PAULINO MD Aug 24, 2024 13:23
[2024-08-24] MEDS: DIPHENOXYLATE W/ATROPINE 2.5 MG TAB PO SCH (17:12)
[2024-08-24 20:00] VITALS: PULSE 56; O2SAT 99
[2024-08-24 21:00] VITALS: BP 118/74; PULSE 55; RESP 17; TEMP 98; O2SAT 99
[2024-08-25 01:00] VITALS: BP 134/86; PULSE 52; RESP 17; TEMP 98; O2SAT 97
[2024-08-25 05:00] VITALS: BP 137/75; PULSE 62; RESP 18; TEMP 98.2; O2SAT 98
[2024-08-25 06:12] LABS: Hemoglobin 11.3 g/dL (13.5-17.5)
[2024-08-25 06:15] LABS: Hematocrit 32.2 % (41.0-53.0); Mean Corpuscular Hemoglobin 38.8 pg (28.0-32.0); Mean Corpuscular Volume 110.8 fL (80.0-100.0)
[2024-08-25 07:04] LABS: Total Cells Counted 100.0 (100)
[2024-08-25 07:05] LABS: Anisocytosis Slight; Macrocytosis Slight; Ovalocytes FEW
[2024-08-25 08:00] VITALS: PULSE 70; O2SAT 99
[2024-08-25 09:00] VITALS: BP 142/93; PULSE 70; RESP 21; TEMP 97.4; O2SAT 99
[2024-08-25] MEDS ORDERED: CHL4PW PO (11:49)
--- NOTE | 2024-08-25 11:55 | DVHDS2 ---
Discharge Summary Date of Admission Aug 21, 2024 at 21:42 Date of Discharge: Aug 25, 2024 Labs/Diagnostic Data: Laboratory Results Test 08/25/24 05:09 08/24/24 04:49 08/23/24 05:54 08/22/24 14:51 White Blood Count 4.6 10^3/uL (4.4-10.8) Red Blood Count 2.91 10^6/uL (4.5-5.90) Hemoglobin 11.3 g/dL (13.5-17.5) Hematocrit 32.2 % (41.0-53.0) Mean Corpuscular Volume 110.8 fL (80.0-100.0) Mean Corpuscular Hemoglobin 38.8 pg (28.0-32.0) Mean Corpuscular Hemoglobin Concent 35.0 g/dL (32.0-36.0) Red Cell Distribution Width 22.2 % (11.8-14.3) Platelet Count 93 10^3/uL (140-450) Mean Platelet Volume 8.7 fL (6.9-10.8) Neutrophils (%) (Auto) % (37.0-80.0) Lymphocytes (%) (Auto) % (10.0-50.0) Monocytes (%) (Auto) % (0.0-12.0) Basophils (%) (Auto) % (0.0-2.0) Neutrophils # (Auto) 10 ^3/uL (1.6-8.6) Lymphocytes # (Auto) 10 ^3/uL (0.4-5.4) Monocytes # (Auto) 10 ^3/uL (0-1.3) Differential Total Cells Counted 100.0 (100) Neutrophils % (Manual) 60 (37.0-80.0) Band Neutrophils % (Manual) 3 Lymphocytes % (Manual) 19 (10.0-50.0) Monocytes % (Manual) 18 (0-12) Eosinophils % (Manual) 0 (0-7) Basophils % (Manual) 0 (0.0-2.0) Metamyelocytes % (manual) 0 Myelocytes % (Manual) 0 Promyelocytes % (Manual) 0 Blast Cells % (Manual) 0 Reactive Lymphocytes 0 Platelet Estimate Decreased Anisocytosis (manual) Slight Macrocytosis Slight Ovalocytes Few Sodium Level 145 mmol/L (136-145) Potassium Level 3.9 mmol/L (3.5-5.1) Chloride Level 115 mmol/L (98-107) Carbon Dioxide Level 20 mmol/L (20-31) Anion Gap 10 (5-15) Blood Urea Nitrogen 17 mg/dL (9-23) Creatinine 1.18 mg/dL (0.700-1.30) Glomerular Filtration Rate Calc 66 mL/min (>90) BUN/Creatinine Ratio 14.4 (10.0-20.0) Serum Glucose 98 mg/dL (74-106) Calcium Level 8.8 mg/dL (8.7-10.4) Magnesium Level 1.6 mg/dL (1.6-2.6) Eosinophils (%) (Auto) 2.7 % (0.0-7.0) Eosinophils # (Auto) 0.1 10 ^3/uL (0-0.8) Basophils # (Auto) 0 10 ^3/uL (0-0.2) Nucleated Red Blood Cells 0.2 % Stool for White Cells None seen Test 08/21/24 18:27 08/21/24 15:11 Troponin I High Sensitivity 21 ng/L (</=54) Prothrombin Time 10.4 sec (9.3-11.8) Prothrombin Time INR 0.98 (0.9-1.15) Activated Partial Thromboplast Time 29.1 SEC (24.5-34.5) Other Laboratory Tests 08/25/24 05:09 08/24/24 04:49 Brief Hx & Hospital Course: This is a 69-year-old male with past medical history of A-Fib Eliquis, Anemia, Colon cancer with metastasis diagnosed on 2023 underwent colostomy procedure 12/2023, CVA 2016 , TIA ,Gout, HLD, HTN, GERD, BPH came with the complain of diarrhea for 2 weeks which is worsen for last 2 days which is liquid in consistency, occasional dark green and orange color but no blood mixed with stool. He also complain generalized weakness, nausea and one episode of vomiting today which contain food materials but no blood mixed with vomitus. He had exertional shortness of breath this limits to walk in a block, currently on chemotherapy for metastatic colon cancer, his chemotherapy scheduled was yesterday but cancelled due to thrombocytopenia. History of IgA kappa multiple myeloma with lytic bone lesions diagnosed in July 2018, underwent chemotherapy with VRD. Then had stem cell transplant in March 2019 at [facility]. Then took Revlimid maintenance from April 2020 and stopped in early 2022. Follow up with [facility] [place]. Patient discharged from [facility] 08/02/2024 similar symptoms. Daily denies any headache, fever, chest pain, SOB, dysuria. He is admitted and initially thought patient may have had a colitis. Therefore he is started on empiric IV antibiotics. Subsequently stool cultures including C diff and other cultures are negative for any underlying infection. Therefore antibiotics have been discontinued. Patient started on Questran as a stool bulking agent. Patient is advised to take [place] till as needed for diarrhea. While in the hospital his electrolytes have been corrected. His diarrhea has improved. Patient is having formed stools with the Questran. Therefore he is advised to continue this given patient has a chronic colostomy with partial bowel removal. [place] [id number] Patient is undergoing chemotherapy for his cancer. Therefore I have advised him to follow up the repeat labs and once platelets improved to consider chemo. Therapy. Meantime patient is also advised to continue Eliquis given history of blood clots. Otherwise while in the hospital patient clinically remained stable. Not having any other issues. Therefore he is being discharged home in stable condition. I have talked with the patient regarding her hospital diagnosis, treatment he received, discharge medications, discharge instructions and follow-up plan of care. He has verbalized understanding of these and agree with the care plan as outlined. Condition at Discharge: Stable Final Diagnosis/Problems List non infectious diarrhea, thrombocytopenia, history of colostomy, history of colon cancer on chemo Discharge Disposition: Home Discharge Instruct/Medications Diet: Consistent carbohydrate, Cardiac 2g Na,low cholest Activity: No Restrictions, As Tolerated Follow Up/Referral: your oncologist next week and to repeat blood platelet levels Medications: as prescribed and home meds New Medications: Cholestyramine (Questran Powder) 4 Gm Pw 4 GM PO TIDBM, #20 POW Continued Medications: Allopurinol (Allopurinol) 300 Mg Tab 300 MG PO DAILY for 30 Days, MG Apixaban Base (Eliquis) 5 Mg Tab 5 MG PO BID, TAB Atorvastatin Calcium (Atorvastatin Calcium) 20 Mg Tab 1 TAB PO DAILY, #30 TAB 5 Refills Celecoxib (Celecoxib) 200 Mg Cap 1 CAP PO DAILY Ferrous Sulfate (Ferosul) 325 Mg Tab 1 TAB PO DAILY Losartan Potassium (Losartan Potassium) 25 Mg Tab 1 TAB PO DAILY, #90 TAB 1 Refill Omeprazole (Gnp Omeprazole) 20 Mg Tab 1 TAB PO DAILY, #90 TAB 1 Refill Tamsulosin Hcl (Tamsulosin Hcl) 0.4 Mg Cap Discontinued Medications: Apixaban Base (Eliquis) 5 Mg Tab 1 Aspirin (Aspir-81) 81 Mg Tab 1 TAB PO DAILY, #30 TAB 5 Refills Azithromycin (Zithromax Z-Nikhil) 250 Mg Tab 250 MG PO DAILY, #6 TAB Celecoxib (CeleBREX CAPSULE) 100 Mg Cp 2 CAP PO BID, #60 CAP 3 Refills Doxycycline Monohydrate (Doxycycline Monohydrate) 100 Mg Cap 1 CAP PO BID, #14 CAP Oxycodone Hcl (Oxycodone Hcl) 5 Mg Tb Vancomycin HCl (Vancomycin HCl) 125 Mg Cap 125 MG PO QID for 10 Days, #40 CAP Scheduled Allopurinol (Allopurinol), 300 MG PO DAILY, (Reported) Apixaban Base (Eliquis), 5 MG PO BID, (Reported) Atorvastatin Calcium (Atorvastatin Calcium), 1 TAB PO DAILY, (Reported) Celecoxib (Celecoxib), 1 CAP PO DAILY, (Reported) Cholestyramine (Questran Powder), 4 GM PO TIDBM Ferrous Sulfate (Ferosul), 1 TAB PO DAILY, (Reported) Losartan Potassium (Losartan Potassium), 1 TAB PO DAILY Omeprazole (Gnp Omeprazole), 1 TAB PO DAILY, (Reported) Miscellaneous Medications Tamsulosin Hcl (Tamsulosin Hcl), (Reported) Discontinued Medications Apixaban Base (Eliquis), 1, (Reported) Aspirin (Aspir-81), 1 TAB PO DAILY, (Reported) Azithromycin (Zithromax Z-Nikhil), 250 MG PO DAILY Celecoxib (CeleBREX CAPSULE), 2 CAP PO BID, (Reported) Doxycycline Monohydrate (Doxycycline Monohydrate), 1 CAP PO BID Oxycodone Hcl (Oxycodone Hcl), (Reported) Vancomycin HCl (Vancomycin HCl), 125 MG PO QID Discharge Statement: "Patient was advised to return to the ER or call 911 if any headaches, dizziness, shortness of breath, chest pain, abdominal pain, bleeding, fevers, or worsening of medical condition. Patient was counseled about treatment plan, medications, possible side effects, patientverbalized understanding. All questions were answered to the best of my ability. This discharge took greater then 30 minutes in planning, reviewing documentation, counseling the patient, and discussing with other team members." ASSESSMENT ASSESSMENT Assessment non infectious diarrhea, thrombocytopenia PATRICIA PAULINO MD Aug 25, 2024 11:55
[2024-08-25 12:29] VITALS: BP 140/90; PULSE 56; RESP 17; TEMP 97.5; O2SAT 99
[2024-08-25 14:56] VITALS: BP 142/93; PULSE 70; RESP 20; TEMP 36.4; O2SAT 99
== END 2024-08-25 16:30 | disposition home or self-care (01) | DRG 391 ==
LOC: ER 13:07 → OVERFLOW 21:42 → EAST 08-22 02:55
PROVIDERS: ADMIT Hospitalist; ATTEND Hospitalist
DX: K52.9 Noninfective gastroenteritis and colitis, unspecified (principal); N17.0 Acute kidney failure with tubular necrosis; I48.19 Other persistent atrial fibrillation; Z94.84 Stem cells transplant status; D63.8 Anemia in other chronic diseases classified elsewhere; E78.5 Hyperlipidemia, unspecified; I10 Essential (primary) hypertension; K21.9 Gastro-esophageal reflux disease without esophagitis; M10.9 Gout, unspecified; D69.6 Thrombocytopenia, unspecified; N40.0 Benign prostatic hyperplasia without lower urinary tract symptoms; Z79.2 Long term (current) use of antibiotics; Z79.01 Long term (current) use of anticoagulants; Z79.82 Long term (current) use of aspirin; Z86.718 Personal history of other venous thrombosis and embolism; Z85.038 Personal history of other malignant neoplasm of large intestine; Z93.3 Colostomy status; Z82.49 Family history of ischemic heart disease and other diseases of the circulatory system; Z79.899 Other long term (current) drug therapy; Z86.73 Personal history of transient ischemic attack (TIA), and cerebral infarction without residual deficits; Y92.89 Other specified places as the place of occurrence of the external cause
CPT/HCPCS: 36415; 71045; 80048; 83735; 84484; 85007; 85025; 85027; 85048; 85610; 85730; 87045; 87427; 87493; 96374; 96375; G0378; J2405; J2470; J3480; J3490

== ENCOUNTER 2024-09-23 11:32 | Inpatient (IN) | payer OTHER ==
[~2024-09-23] VITALS: Ht 185.4 cm; Wt 91.1 kg
[~2024-09-23 11:32] MED LIST changes: -APIX5TAB; -ASPI1TAB20 PO; -AZITTAB PO; -CEL100T PO; +CHL4PW PO; -DOXY1CAP57 PO; -OXY5T; -VANC125C3 PO
--- NOTE | 2024-09-23 12:33 | DVH ---
CT chest abdomen and pelvis without contrast INDICATION: diarrhea h/o c diff Comparison: 02/13/2023 TECHNIQUE: Serial axial images were performed through the abdomen and pelvis and then reformatted in the sagittal and coronal plane. All CT scans at this medical facility are performed using dose modula tion techniques as appropriate to a performed exam including the following: Automated exposure contro l was utilized; adjustment of the MA and/or KvP according to patient size; and use of iterative recon struction technique. FINDINGS: Hiatal hernia at the GE junction containing portion of the stomach. Several low-density mass lesions are seen in the right lobe of the liver with the largest measuring 6.7 cm No masses in the spleen No renal stones or hydronephrosis. Peripelvic cysts left kidney. No masses in the adrenal glands or pancreas Gallbladder contracted and contains stones. No biliary dilatation No enlarged retroperitoneal lymph nodes No evidence of mechanical obstruction of bowel There is an enterostomy site in the left lower abdominal wall containing a loop of bowel in the pelvi s there is a stone in the urinary bladder. The prostate gland is enlarged No enlarged pelvic lymph nodes On bone windows scattered areas of osteo sclerotic and osteolytic metastatic disease. IMPRESSION Study limited by lack of IV contrast Multiple low-density masses in the liver measuring up to 6.7 cm suspicious for metastatic disease Cholelithiasis without signs of cholecystitis No evidence of bowel obstruction Bladder stone. Enlarged prostate gland Multiple osteo sclerotic and osteolytic bony lesions. Differential diagnosis is bony metastasis vers us severe osteoporosis or Paget's disease. These were present on previous exam. Compression fracture at L1 present on old exams Computed Tomographic Radiation Dosimetry Report: Total CTDI vol = 13 mGy Total DLP = 737 mGy-cm Low d ose protocols were performed.
--- NOTE | 2024-09-23 13:17 | ED.PDOC ---
GI ASSESSMENT HPI Comments HPI: Clay Ambriz historian 69 y.o male presents to the ED for a chief complaint of diarrhea and nausea that started 6 days ago. Patient presents with a colostomy bag in place s/p partial colectomy due to colon cancer. Patient reports diarrhea started s/p chemotherapy, states filling colostomy bag 4-5x a day. Patient reports being hospitalized, possible C.diff infection but states was r/o and discharged with multiple medications that at this time he does not have on him nor recalls the names of. Patient denies any associating symptoms such as abdominal pain, vomiting, fever, chills. Vitals Temp: 98.2 F HR: 62 BP: 137/75 RR: 18 SPO2: 98% RA Past Medical history: TIA, CVA, AFIB, neuropathy, Colon cancer METS liver Past Surgical history: parietal colectomy and tonsillectomy Social History: Denies smoking, ETOH, and drug use. Allergies: NKA HPI: Katina Hernándezian. Dizziness, diarrhea for six days since chemotherapy, generalized weakness, no abdominal pain or fever. Is on some type of medications for diarrhea. Past Medical History: Past Surgical History: REVIEW OF SYSTEMS: CONSTITUTIONAL: Denies acute: fever, diaphoresis, chills, HEAD: Denies acute: headache, photophobia Eyes: Denies acute: Double vision, vision loss, eye pain, eye discharge. EARS: Denies acute: tinnitus, hearing loss, ear discharge, ear pain, THROAT: Denies acute: sore throat, swelling, difficulty swallowing , pain with swallowing, change in voice. NECK: Denies acute: neck pain, neck swelling, stiff neck. HEART: Denies acute : chest pain, palpitations, LUNGS: Denies acute: SOB, wheezing, cough, hemoptysis ABDOMEN: Denies acute: abdominal pain, Nausea, Vomiting, melena , hematemesis, hematochezia SKIN: Denies acute: rash, redness, lesions, itchiness. EXTREMITIES: Denies acute: calf pain, numbness, tingling, weakness, denies pain in extremity. Denies acute: Low back pain. Neuro: Denies acute: focal neurological deficit, motor or sensory focal neurological deficit, tremors, seizure like activity, confusion, change in mental status, loss of bowel or bladder function, cauda equina like symptoms. : Denies acute: dysuria, hematuria, flank pain, increase in urinary frequency. PSYCH: Denies acute: hallucination, suicidal ideation, homicidal ideation. PHYSICAL EXAM: General: ---[id number]----acute distress, awake and alert. Head: normocephalic, atraumatic. Neck: supple, trachea is midline, no swelling. Throat: Normal phonation. Eyes:, no erythema, no purulent discharge, no proptosis, no icterus. Heart: regular rate, regular rhythm, no significant murmur appreciated. Lungs: no apparent respiratory distress, Able to speak in full sentences. No wheezing, no rhonchi, no crackles. No stridors Clear to auscultation bilaterally. Abdomen: non tender to palpation, non distended, soft, no guarding, no rebound, + bowel sounds. Noted colostomy pouch with light green yellowish stool in the bag Neuro: Awake, Alert, oriented to name, self, situation, follows commands GCS=15. Speech is normal. Skin: no petechia, no purpura, no cyanosis, non-pale, not jaundice. Lower extremities: --no - Pitting edema no deformity, no focal swelling, no calf TTP. Makes eye contact. moves all four extremities. Face: no apparent facial droop. ED COURSE: DISCLAIMER: This medical document was created using an electronic medical record system with voice recognition software and computerized dictation system. Although this document has been carefully reviewed, there might still be some phonetic and typographical errors. Occasional wrong-word or "sound-alike" substitutions may have occurred due to the inherent limitations of voice recognition software. These areas are purely typographical due to imperfections of the software programs and do not reflect any compromise in the patient's medical care. Please read the chart carefully and recognize, using context, where these substitutions have occurred. Chief Complaint: Diarrhea Time Seen by MD: 12:54 Primary Care Provider: LAUREN Reviewed Notes: Allergies Allergies: Coded Allergies: NO KNOWN ALLERGIES (Unverified , 07/31/18) Home Meds Active Scripts Cholestyramine (QUESTRAN POWDER) 4 Gm Pw, 4 GM PO TIDBM, #20 POW Prov:PATRICIA PAULINO MD 08/25/24 Losartan Potassium (Losartan Potassium) 25 Mg Tab, 1 TAB PO DAILY, #90 TAB 1 Refill Prov:AISHWARYA CAMPOS MD 07/03/24 Reported Medications Celecoxib (Celecoxib) 200 Mg Cap, 1 CAP PO DAILY 03/26/24 Ferrous Sulfate (Ferosul) 325 Mg Tab, 1 TAB PO DAILY 03/26/24 Tamsulosin Hcl (Tamsulosin Hcl) 0.4 Mg Cap 03/26/24 Omeprazole (Gnp Omeprazole) 20 Mg Tab, 1 TAB PO DAILY, #90 TAB 1 Refill 08/01/18 Atorvastatin Calcium (ATORVASTATIN CALCIUM) 20 Mg Tab, 1 TAB PO DAILY, #30 TAB 5 Refills 08/01/18 Allopurinol (Allopurinol) 300 Mg Tab, 300 MG PO DAILY for 30 Days, MG 08/01/18 Apixaban Base (ELIQUIS) 5 Mg Tab, 5 MG PO BID, TAB 08/01/18 Information Source: Patient Mode of Arrival: Wheelchair Timing: Days Past Medical History PAST MEDICAL HISTORY: AFIB, Anemia, Cancer, CVA, TIA Surgical History: Tonsillectomy Family History Family History: Unobtainable, Family hx of HTN Social History Smoker: Non-Smoker Alcohol: Occasionally Drugs: Denies Drug Use Lives In: Home Was a procedure done? Was a procedure done?: No GI differential Dx Differential Diagnosis: Gastroenteritis, Hepatitis, Dehydration, Electrolyte Imbalance, Food Poisoning, Bacterial, Parasitic, Viral, Hypovolemia, Other (Includes but not limited to thyroid disease, encephalopathy, electrolyte abnormality, sepsis, infection, intracranial pathology, drug adverse effects, arrhythmia, kidney insufficiency, ACS, CVA, malignancy, anemia) X-Ray, Labs, Meds, VS Vital Signs Date Time Temp Pulse Resp B/P (MAP) Pulse Ox O2 Delivery O2 Flow Rate FiO2 09/23/24 17:13 98.7 76 16 94/70 (78) 98 98.7 09/23/24 11:33 98.2 90 18 96/77 98 98.2 Lab Test 09/23/24 13:15 Range/Units White Blood Count 8.2 4.4-10.8 10^3/uL Red Blood Count 3.76 L 4.5-5.90 10^6/uL Hemoglobin 14.7 13.5-17.5 g/dL Hematocrit 42.9 41.0-53.0 % Mean Corpuscular Volume 114.2 H 80.0-100.0 fL Mean Corpuscular Hemoglobin 39.2 H 28.0-32.0 pg Mean Corpuscular Hemoglobin Concent 34.3 32.0-36.0 g/dL Red Cell Distribution Width 23.9 H 11.8-14.3 % Platelet Count 94 L 140-450 10^3/uL Mean Platelet Volume 9.5 6.9-10.8 fL Neutrophils (%) (Auto) 37.0-80.0 % Lymphocytes (%) (Auto) 10.0-50.0 % Monocytes (%) (Auto) 0.0-12.0 % Basophils (%) (Auto) 0.0-2.0 % Neutrophils # (Auto) 1.6-8.6 10 ^3/uL Lymphocytes # (Auto) 0.4-5.4 10 ^3/uL Monocytes # (Auto) 0-1.3 10 ^3/uL Differential Total Cells Counted 100.0 100 Neutrophils % (Manual) 51 37.0-80.0 Band Neutrophils % (Manual) 2 Lymphocytes % (Manual) 20 10.0-50.0 Monocytes % (Manual) 25 H 0-12 Eosinophils % (Manual) 2 0-7 Basophils % (Manual) 0 0.0-2.0 Metamyelocytes % (manual) 0 Myelocytes % (Manual) 0 Promyelocytes % (Manual) 0 Blast Cells % (Manual) 0 Reactive Lymphocytes 0 Platelet Estimate Decreased Sodium Level 141 136-145 mmol/L Potassium Level 3.7 3.5-5.1 mmol/L Chloride Level 114 H 98-107 mmol/L Carbon Dioxide Level 16 L 20-31 mmol/L Anion Gap 11 5-15 Blood Urea Nitrogen 14 9-23 mg/dL Creatinine 1.24 0.700-1.30 mg/dL Glomerular Filtration Rate Calc 62 >90 mL/min BUN/Creatinine Ratio 11.3 10.0-20.0 Serum Glucose 128 H 74-106 mg/dL Lactic Acid Level 1.7 0.4-2.0 mmol/L Calcium Level 9.3 8.7-10.4 mg/dL Total Bilirubin 2.4 H 0.2-1.0 mg/dL Aspartate Amino Transferase (AST) 62 H 13-40 U/L Alanine Aminotransferase (ALT) 54 H 7-40 U/L Alkaline Phosphatase 204 H 46-116 U/L Total Protein 6.7 5.7-8.2 g/dL Albumin 4.4 3.2-4.8 g/dL Microbiology Date/Time Source Procedure Growth Status 09/23/24 13:15 Blood Blood Culture - Preliminary NO GROWTH AFTER 72 HOURS OF INCUBATION. Resulted 09/23/24 13:00 Blood Blood Culture - Preliminary NO GROWTH AFTER 72 HOURS OF INCUBATION. Resulted [place] [address] Ph: [phone] DIAGNOSTIC IMAGING Diagnostic Imaging Report : [id number] Signed PATIENT: MADHURI HOUSE ACCT: [id number] UNIT: [id number] : 1955 LOC: ER ROOM / BED: / AGE / SEX: 69 / M ADM STATUS: REG ER SERVICE 1155 ORDERING PHYSICIAN: FRANCO KEITH DO PROCEDURE(s): ABPL - CT AB PEL WO CON-NO ORAL OR IV REASON: diarrhea h/o c diff ORDER NUMBER(s): [id number], ACCESSION NUMBER(s): [id number] CT chest abdomen and pelvis without contrast INDICATION: diarrhea h/o c diff Comparison: 02/13/2023 TECHNIQUE: Serial axial images were performed through the abdomen and pelvis and then reformatted in the sagittal and coronal plane. All CT scans at this medical facility are performed using dose modulation techniques as appropriate to a performed exam including the following: Automated exposure control was utilized; adjustment of the MA and/or KvP according to patient size; and use of iterative reconstruction technique. FINDINGS: Hiatal hernia at the GE junction containing portion of the stomach. Several low- density mass lesions are seen in the right lobe of the liver with the largest measuring 6.7 cm No masses in the spleen No renal stones or hydronephrosis. Peripelvic cysts left kidney. No masses in the adrenal glands or pancreas Gallbladder contracted and contains stones. No biliary dilatation No enlarged retroperitoneal lymph nodes No evidence of mechanical obstruction of bowel There is an enterostomy site in the left lower abdominal wall containing a loop of bowel in the pelvis there is a stone in the urinary bladder. The prostate gland is enlarged No enlarged pelvic lymph nodes On bone windows scattered areas of osteo sclerotic and osteolytic metastatic disease. IMPRESSION Study limited by lack of IV contrast Multiple low-density masses in the liver measuring up to 6.7 cm suspicious for metastatic disease Cholelithiasis without signs of cholecystitis No evidence of bowel obstruction Bladder stone. Enlarged prostate gland Multiple osteo sclerotic and osteolytic bony lesions. Differential diagnosis is bony metastasis versus severe osteoporosis or Paget's disease. These were present on previous exam. Compression fracture at L1 present on old exams Computed Tomographic Radiation Dosimetry Report: Total CTDI vol = 13 mGy Total DLP = 737 mGy-cm Low dose protocols were performed. ATED BY: BARBY FRAGA MD DICTATED DATE/TIME: 09/23/24 1230 SIGNED BY: BARBY FRAGA MD SIGNED DATE/TIME: 09/23/24 1230 CC: Time of 1ST Reevaluation: 13:11 Reevaluation 1ST: Unchanged Patient Education/Counseling: Diagnosis, Treatment Family Education/Counseling: No Family Present Comments MDM: patient presented with the above HPI.---generalized weakness/dizziness and diarrhea---workup was initiated. patient was found with the above mentioned diagnosis. the following medications were ordered: please refer to order lists of meds and tests obtained by myself Dr. Keith. Patient ED course and VS have been stabilized. Patient has been reassessed in the ED and remained in a stable condition. Patient/family voices understanding and is agreeable with plan. Patient has been observed in the ED adequate length of time to insure improvement/stability. Escalation of care considered: Consideration of escalation to observation or admission Patient was given fluid hydration. Stool studies are still pending. Patient was ADMITTED to the medicine team for further evaluation and treatment of their presentation. All the reports of any imaging studies that were ordered by myself were reviewed by myself. Departure 1 Departure Time of Disposition: 13:57 Impression: Primary Impression: Diarrhea Additional Impressions: Dehydration Generalized weakness Thrombocytopenia Metastatic disease Disposition: ADMITTED INPATIENT Admit to: Tele Condition: Guarded Discharged With: Self Critical Care Note Critical Care Time?: No I personally scribed for FRANCO KEITH DO ([email or web address]) on 09/23/24 at 13:17. Electronically submitted by Senha Ramos ([facility]). I personally scribed for FRANCO KEITH DO ([email or web address]) on 09/23/24 at 15:22. Electronically submitted by Sneha Ramos ([facility]). FRANCO KEITH DO Sep 23, 2024 13:17
[2024-09-23 13:43] LABS: Hemoglobin 14.7 g/dL (13.5-17.5)
[2024-09-23 13:45] LABS: Hematocrit 42.9 % (41.0-53.0); Mean Corpuscular Hemoglobin 39.2 pg (28.0-32.0); Mean Corpuscular Volume 114.2 fL (80.0-100.0)
[2024-09-23 14:00] LABS: Albumin 4.4 g/dL (3.2-4.8); Anion Gap 11 (5-15); BUN/Creatinine Ratio 11.3 (10.0-20.0); Blood Urea Nitrogen 14 mg/dL (9-23); Calcium 9.3 mg/dL (8.7-10.4); Potassium 3.7 mmol/L (3.5-5.1); Sodium 141 mmol/L (136-145); Total Protein 6.7 g/dL (5.7-8.2)
[2024-09-23 14:03] LABS: Alanine Aminotransferase 54 U/L (7-40); Alkaline Phosphatase 204 U/L (46-116); Bilirubin, Total 2.4 mg/dL (0.2-1.0); Carbon Dioxide 16 mmol/L (20-31); Chloride 114 mmol/L (98-107); Glucose 128 mg/dL (74-106)
[2024-09-23 14:30] LABS: Total Cells Counted 100.0 (100)
[2024-09-23] MEDS ORDERED: TEMAZEPAM 15 MG CAP PO PRN (19:15)
[2024-09-23] MEDS ORDERED: MORPHINE SULFATE INJ 2 MG/ml SYRG IV PRN (19:15)
--- NOTE | 2024-09-23 23:50 | DVHHP2 ---
History of Present Illness Reason for Visit: Diarrhea History of Present Illness 69-year-old male with a history of colon cancer with metastasis to the liver currently ongoing chemotherapy presents with diarrhea. Patient reports developing diarrhea six days ago after chemotherapy treatment. Denies nausea or vomiting. No abdominal pain. No fever or chills. Past Medical History Colon cancer with metastases to the liver, atrial fibrillation, CVA Past Surgical History Colectomy with colostomy placement, tonsillectomy Family History Noncontributory Smoke: No ALCOHOL: none Drugs: None Lives: with Family Review of Systems Review of Systems Review of systems are currently negative otherwise addressed in HPI. Allergies: Coded Allergies: NO KNOWN ALLERGIES (Unverified , 07/31/18) Medications Current Medications Medications Dose Ordered Sig/Landon Route Start Time Stop Time Status Last Admin Dose Admin Metronidazole 100 ml @ 100 mls/hr Q8HR IV 09/24/24 06:00 Allopurinol 300 mg DAILY PO 09/24/24 10:00 Apixaban 5 mg BID PO 09/23/24 22:00 Atorvastatin Calcium 20 mg HS PO 09/23/24 22:00 Losartan Potassium 25 mg DAILY PO 09/24/24 10:00 Tamsulosin HCl 0.4 mg QPM PO 09/24/24 18:00 Furosemide 20 mg DAILY PO 09/24/24 10:00 Acetaminophen/ Hydrocodone Bitart 1 tab Q4HP PRN PO 09/23/24 19:15 Temazepam 15 mg QHSP PRN PO 09/23/24 19:15 Ondansetron HCl 4 mg Q4HP PRN IV 09/23/24 19:15 Morphine Sulfate 2 mg Q4HPRN PRN IV 09/23/24 19:15 Exam Vital Signs Vital Signs Date Time Temp Pulse Resp B/P (MAP) Pulse Ox O2 Delivery O2 Flow Rate FiO2 09/23/24 19:48 98.4 62 16 107/46 (66) 100 98.4 Exam Gen: 69-year-old male in mild distress. With seizure Skin: Warm, dry, normal color and texture, no rash. HEENT: Normocephalic atraumatic, mucous membranes moist and pink. Neck: Cervical and supraclavicular nodes normal without enlargement, trachea is midline, thyroid gland is normal without masses. Pulmonary: Clear to auscultation and percussion bilaterally. Cardiac: Regular rate and rhythm. No murmur Abdomen: Soft, nontender, nondistended, bowel sounds present all 4 quadrants, no guarding, no rigidity, no organomegaly. Extremities: No cyanosis, clubbing, no edema Neuro: Cranial nerves II through XII grossly intact, normal affect and speech, no focal motor deficits. Labs/Xrays ORDERING PHYSICIAN: FRANCO KEITH DO PROCEDURE(s): ABPL - CT AB PEL WO CON-NO ORAL OR IV REASON: diarrhea h/o c diff ORDER NUMBER(s): [id number], ACCESSION NUMBER(s): [id number] CT chest abdomen and pelvis without contrast INDICATION: diarrhea h/o c diff Comparison: 02/13/2023 TECHNIQUE: Serial axial images were performed through the abdomen and pelvis and then reformatted in the sagittal and coronal plane. All CT scans at this medical facility are performed using dose modulation techniques as appropriate to a performed exam including the following: Automated exposure control was utilized; adjustment of the MA and/or KvP according to patient size; and use of iterative reconstruction technique. FINDINGS: Hiatal hernia at the GE junction containing portion of the stomach. Several low- density mass lesions are seen in the right lobe of the liver with the largest measuring 6.7 cm No masses in the spleen No renal stones or hydronephrosis. Peripelvic cysts left kidney. No masses in the adrenal glands or pancreas Gallbladder contracted and contains stones. No biliary dilatation No enlarged retroperitoneal lymph nodes No evidence of mechanical obstruction of bowel There is an enterostomy site in the left lower abdominal wall containing a loop of bowel in the pelvis there is a stone in the urinary bladder. The prostate gland is enlarged No enlarged pelvic lymph nodes On bone windows scattered areas of osteo sclerotic and osteolytic metastatic disease. IMPRESSION Study limited by lack of IV contrast Multiple low-density masses in the liver measuring up to 6.7 cm suspicious for metastatic disease Cholelithiasis without signs of cholecystitis No evidence of bowel obstruction Bladder stone. Enlarged prostate gland Multiple osteo sclerotic and osteolytic bony lesions. Differential diagnosis is bony metastasis versus severe osteoporosis or Paget's disease. These were present on previous exam. Compression fracture at L1 present on old exams Computed Tomographic Radiation Dosimetry Report: Total CTDI vol = 13 mGy Total DLP = 737 mGy-cm Low dose protocols were performed. Labs Test 09/23/24 13:15 Range/Units White Blood Count 8.2 4.4-10.8 10^3/uL Red Blood Count 3.76 L 4.5-5.90 10^6/uL Hemoglobin 14.7 13.5-17.5 g/dL Hematocrit 42.9 41.0-53.0 % Mean Corpuscular Volume 114.2 H 80.0-100.0 fL Mean Corpuscular Hemoglobin 39.2 H 28.0-32.0 pg Mean Corpuscular Hemoglobin Concent 34.3 32.0-36.0 g/dL Red Cell Distribution Width 23.9 H 11.8-14.3 % Platelet Count 94 L 140-450 10^3/uL Mean Platelet Volume 9.5 6.9-10.8 fL Neutrophils (%) (Auto) 37.0-80.0 % Lymphocytes (%) (Auto) 10.0-50.0 % Monocytes (%) (Auto) 0.0-12.0 % Basophils (%) (Auto) 0.0-2.0 % Neutrophils # (Auto) 1.6-8.6 10 ^3/uL Lymphocytes # (Auto) 0.4-5.4 10 ^3/uL Monocytes # (Auto) 0-1.3 10 ^3/uL Differential Total Cells Counted 100.0 100 Neutrophils % (Manual) 51 37.0-80.0 Band Neutrophils % (Manual) 2 Lymphocytes % (Manual) 20 10.0-50.0 Monocytes % (Manual) 25 H 0-12 Eosinophils % (Manual) 2 0-7 Basophils % (Manual) 0 0.0-2.0 Metamyelocytes % (manual) 0 Myelocytes % (Manual) 0 Promyelocytes % (Manual) 0 Blast Cells % (Manual) 0 Reactive Lymphocytes 0 Platelet Estimate Decreased Sodium Level 141 136-145 mmol/L Potassium Level 3.7 3.5-5.1 mmol/L Chloride Level 114 H 98-107 mmol/L Carbon Dioxide Level 16 L 20-31 mmol/L Anion Gap 11 5-15 Blood Urea Nitrogen 14 9-23 mg/dL Creatinine 1.24 0.700-1.30 mg/dL Glomerular Filtration Rate Calc 62 >90 mL/min BUN/Creatinine Ratio 11.3 10.0-20.0 Serum Glucose 128 H 74-106 mg/dL Lactic Acid Level 1.7 0.4-2.0 mmol/L Calcium Level 9.3 8.7-10.4 mg/dL Total Bilirubin 2.4 H 0.2-1.0 mg/dL Aspartate Amino Transferase (AST) 62 H 13-40 U/L Alanine Aminotransferase (ALT) 54 H 7-40 U/L Alkaline Phosphatase 204 H 46-116 U/L Total Protein 6.7 5.7-8.2 g/dL Albumin 4.4 3.2-4.8 g/dL SEPSIS Sepsis Screen Date sepsis recognized/suspect: Sep 23, 2024 Time Sepsis recognized/suspect: 1135 Recent Procedure: No On Antibiotic Therapy: No Respiratory Rate >20: No Heart Rate >90: No Temp<36 C (96.8 F) or >38.3 C: No SBP <90 or MAP <65 mmHG: No New Acute Mental Status Change: No Is the patient on CPAP, BIPAP,: No Physician Orders Allopurinol Tablet (Zyloprim Tablet) (09/24/24 10:00) Apixaban (Eliquis) (09/23/24 22:00) Atorvastatin (Lipitor) (09/23/24 22:00) Losartan Tablet (Cozaar Tablet) (09/24/24 10:00) Tamsulosin Hydrochloride (Flomax) (09/24/24 18:00) Furosemide Tablet (Lasix Tablet) (09/24/24 10:00) Admit (09/23/24 19:07) Hydrocodone-Acet 5/325mg Tab ([place] 5/32 (09/23/24 19:15) Temazepam (Restoril) (09/23/24 19:15) Ondansetron Hcl (Zofran) (09/23/24 19:15) Complete Blood Count (09/24/24 04:00) Comprehensive Metabolic Panel (09/24/24 04:00) Condition: Stable (09/23/24 19:07) Clear Liq Diet (09/24/24 Breakfast) Bedrest With Bathroom Privileg (09/23/24 19:07) Morphine Sulfate Injection (09/23/24 19:15) Metronidazole 500mg/100ml (Flagyl 500mg/ (09/24/24 06:00) Vital Signs Date Time Temp Pulse Resp B/P (MAP) Pulse Ox O2 Delivery O2 Flow Rate FiO2 09/23/24 19:48 98.4 62 16 107/46 (66) 100 98.4 09/23/24 17:13 98.7 76 16 94/70 (78) 98 98.7 Laboratory Tests Test 09/23/24 13:15 Lactic Acid Level 1.7 mmol/L (0.4-2.0) White Blood Count 8.2 10^3/uL (4.4-10.8) Assessment/Plan Assessment/Plan Assessment Diarrhea Metastatic disease, undergoing chemotherapy Status post colectomy with colostomy placement Transaminitis Plan Admit the patient to [facility] to the hospitalist Stool bacterial culture pending Flagyl Resume home medications Clear liquid diet Continue treatment per orders. Plan discussed with: Patient My Orders Orders - JANET HENRIQUEZ [facility] Procedure Category Date Status Time Allopurinol Tablet PHA 09/24/24 In Process (Zyloprim Tablet) 10:00 Apixaban (Eliquis) PHA 09/23/24 In Process 22:00 Atorvastatin (Lipitor) PHA 09/23/24 In Process 22:00 Losartan Tablet PHA 09/24/24 In Process (Cozaar Tablet) 10:00 Tamsulosin PHA 09/24/24 In Process Hydrochloride (Flomax) 18:00 Furosemide Tablet PHA 09/24/24 In Process (Lasix Tablet) 10:00 Admit ADMIT 09/23/24 Transmitted 19:07 Hydrocodone-Acet PHA 09/23/24 In Process 5/325mg Tab ([place] 19:15 Temazepam (Restoril) PHA 09/23/24 In Process 19:15 Ondansetron Hcl PHA 09/23/24 In Process (Zofran) 19:15 Complete Blood Count LAB 09/24/24 Verified 04:00 Comprehensive LAB 09/24/24 Verified Metabolic Panel 04:00 Condition: Stable NIKKO 09/23/24 In Process 19:07 Clear Liq Diet DIET 09/24/24 Transmitted Breakfast Bedrest With Bathroom NIKKO 09/23/24 In Process Privileg 19:07 Morphine Sulfate PHA 09/23/24 In Process Injection 19:15 Metronidazole PHA 09/24/24 In Process 500mg/100ml (Flagyl 06:00 Date of Service: Sep 23, 2024 Billing Provider: JANET HENRIQUEZ Common Visit Codes: [id number] INP/OBS CARE (HIGH) JANET HENRIQUEZ Sep 23, 2024 23:50
[2024-09-24 07:18] LABS: Anion Gap 13 (5-15); BUN/Creatinine Ratio 8.8 (10.0-20.0); Blood Urea Nitrogen 21 mg/dL (9-23); Calcium 9.4 mg/dL (8.7-10.4); Total Protein 6.7 g/dL (5.7-8.2)
[2024-09-24 07:19] LABS: Albumin 4.4 g/dL (3.2-4.8)
[2024-09-24 07:21] LABS: Alanine Aminotransferase 60 U/L (7-40); Alkaline Phosphatase 211 U/L (46-116); Bilirubin, Total 2.1 mg/dL (0.2-1.0); Carbon Dioxide 13 mmol/L (20-31); Chloride 111 mmol/L (98-107); Glucose 120 mg/dL (74-106); Potassium 4.4 mmol/L (3.5-5.1); Sodium 137 mmol/L (136-145)
[2024-09-24 07:24] LABS: Hemoglobin 14.5 g/dL (13.5-17.5)
[2024-09-24 07:26] LABS: Hematocrit 41.1 % (41.0-53.0); Mean Corpuscular Hemoglobin 41.3 pg (28.0-32.0); Mean Corpuscular Volume 117.3 fL (80.0-100.0)
[2024-09-24] MEDS: SODIUM CHLORIDE 0.9% 1,000 ML IV ONE ×2 (08:18→09:38)
[2024-09-24] MEDS: APIXABAN 5 MG TAB PO SCH (08:18)
[2024-09-24] MEDS: ATORVASTATIN 20 MG TAB PO SCH (08:18)
[2024-09-24 08:40] VITALS: PULSE 70; RESP 18; O2SAT 99
[2024-09-24 09:27] LABS: Anisocytosis Slight; Macrocytosis Marked; Total Cells Counted 100.0 (100)
[2024-09-24] MEDS ORDERED: FUROSEMIDE 20 MG TAB PO SCH (10:00)
[2024-09-24] MEDS ORDERED: LOSARTAN POTASSIUM 25 MG TAB PO SCH (10:00)
--- NOTE | 2024-09-24 10:04 | DVHPN2 ---
Subjective He was admitted yesterday from the emergency room for diarrhea He has creatinine also went up from 1.2 on admission to 2.3 His blood pressure is low He has a history of C diff before Changes from previous H/P or p: Changes Objective Vitals Vital Signs Date Time Temp Pulse Resp B/P (MAP) Pulse Ox O2 Delivery O2 Flow Rate FiO2 09/24/24 08:40 98.2 70 18 101/49 (66) 70 98.2 09/24/24 08:40 Room Air* 0 21 General Appearance: Alert, Oriented X3, Cooperative Lungs: Clear to auscultation, Normal air movement Abdomen: Normal bowel sounds, Soft, No tenderness Extremities: No edema Medications Current Medications Medications Dose Ordered Sig/Landon Route Start Time Stop Time Status Last Admin Dose Admin Metronidazole 100 ml @ 100 mls/hr Q8HR IV 09/24/24 06:00 09/24/24 08:36 100 MLS/HR Allopurinol 300 mg DAILY PO 09/24/24 10:00 Apixaban 5 mg BID PO 09/23/24 22:00 Atorvastatin Calcium 20 mg HS PO 09/23/24 22:00 Tamsulosin HCl 0.4 mg QPM PO 09/24/24 18:00 Acetaminophen/ Hydrocodone Bitart 1 tab Q4HP PRN PO 09/23/24 19:15 Temazepam 15 mg QHSP PRN PO 09/23/24 19:15 Ondansetron HCl 4 mg Q4HP PRN IV 09/23/24 19:15 Morphine Sulfate 2 mg Q4HPRN PRN IV 09/23/24 19:15 Laboratory Results Laboratory Tests 09/24/24 06:14 Chemistry Test 09/23/24 13:15 09/24/24 06:14 Albumin 4.4 g/dL (3.2-4.8) 4.4 g/dL (3.2-4.8) Calcium Level 9.3 mg/dL (8.7-10.4) 9.4 mg/dL (8.7-10.4) Total Protein 6.7 g/dL (5.7-8.2) 6.7 g/dL (5.7-8.2) LFT Test 09/23/24 13:15 09/24/24 06:14 Alanine Aminotransferase (ALT) 54 U/L (7-40) H 60 U/L (7-40) H Alkaline Phosphatase 204 U/L (46-116) H 211 U/L (46-116) H Aspartate Amino Transferase (AST) 62 U/L (13-40) H 65 U/L (13-40) H Total Bilirubin 2.4 mg/dL (0.2-1.0) H 2.1 mg/dL (0.2-1.0) H Assessment/Plan Assessment/Plan Severe diarrhea Dehydration Acute kidney injury due to vasomotor nephropathy History of colon cancer with Mets to the liver status post colostomy Transaminitis Hyperbilirubinemia Thrombocytopenia History of atrial fibrillation on Eliquis Plan Clear liquids IV fluids Give another bolus 1 L IV Stool specimen was collected for C diff IV Flagyl DC the losartan DC Lasix Continue Eliquis Full code Plan discussed with: Patient My Orders Orders - AISHWARYA CAMPOS MD Procedure Category Date Status Time Sodium Chloride 0.9% PHA 09/24/24 In Process 09:15 Date of Service: Sep 24, 2024 Billing Provider: AISHWARYA CAMPOS MD Common Visit Codes: NOT BILLABLE AISHWARYA CAMPOS MD Sep 24, 2024 10:04
[2024-09-24 10:55] LABS: Urine Protein, UAD 1+ (Negative)
[2024-09-24] MEDS: SODIUM CHLORIDE 0.9% 1,000 ML IV SCH (12:13)
[2024-09-24] MEDS: ALLOPURINOL 100 MG TAB PO SCH (12:17)
[2024-09-24] MEDS: TAMSULOSIN HYDROCHLORIDE 0.4 MG CAP PO SCH (18:08)
[2024-09-24 20:00] VITALS: PULSE 87; RESP 16; O2SAT 98
[2024-09-25 07:14] LABS: Anion Gap 13 (5-15); BUN/Creatinine Ratio 18.2 (10.0-20.0); Glucose 83 mg/dL (74-106); Sodium 139 mmol/L (136-145)
[2024-09-25 07:15] LABS: Albumin 3.3 g/dL (3.2-4.8)
[2024-09-25 07:20] LABS: Alkaline Phosphatase 166 U/L (46-116); Blood Urea Nitrogen 31 mg/dL (9-23); Carbon Dioxide 12 mmol/L (20-31); Chloride 114 mmol/L (98-107); Potassium 3.4 mmol/L (3.5-5.1)
[2024-09-25 07:21] LABS: Alanine Aminotransferase 50 U/L (7-40); Bilirubin, Total 1.4 mg/dL (0.2-1.0); Calcium 8.0 mg/dL (8.7-10.4); Magnesium 1.5 mg/dL (1.6-2.6); Total Protein 5.1 g/dL (5.7-8.2)
[2024-09-25 08:00] VITALS: PULSE 83; RESP 16; O2SAT 99
[2024-09-25 09:55] LABS: Hematocrit 34.7 % (41.0-53.0); Hemoglobin 12.3 g/dL (13.5-17.5); Mean Corpuscular Hemoglobin 40.6 pg (28.0-32.0); Mean Corpuscular Volume 114.2 fL (80.0-100.0)
--- NOTE | 2024-09-25 10:05 | DVHPN2 ---
Subjective Doing well Still having diarrhea K+ and Mg low C. Diff negative Changes from previous H/P or p: Changes Objective Vitals Vital Signs Date Time Temp Pulse Resp B/P (MAP) Pulse Ox O2 Delivery O2 Flow Rate FiO2 09/25/24 04:00 70 18 108/82 (91) 98 09/25/24 00:00 97.2 97.2 09/24/24 20:00 Room Air* 0 21 Intake/Output Intake and Output 09/25/24 07:00 Intake Total 1700 ml Output Total 200 ml Balance 1500 ml Intake Oral 400 ml IV Total 1300 ml Tube Feeding 0 ml Blood Product 0 ml Other 0 ml Output Stool Total 200 ml General Appearance: Alert, Oriented X3, Cooperative Lungs: Clear to auscultation, Normal air movement Abdomen: Normal bowel sounds, Soft, No tenderness Extremities: No edema Medications Current Medications Medications Dose Ordered Sig/Landon Route Start Time Stop Time Status Last Admin Dose Admin Metronidazole 100 ml @ 100 mls/hr Q8HR IV 09/24/24 06:00 09/25/24 06:13 100 MLS/HR Allopurinol 300 mg DAILY PO 09/24/24 10:00 09/24/24 12:17 300 MG Apixaban 5 mg BID PO 09/23/24 22:00 09/24/24 23:28 5 MG Atorvastatin Calcium 20 mg HS PO 09/23/24 22:00 09/24/24 23:28 20 MG Tamsulosin HCl 0.4 mg QPM PO 09/24/24 18:00 09/24/24 18:08 0.4 MG Acetaminophen/ Hydrocodone Bitart 1 tab Q4HP PRN PO 09/23/24 19:15 Temazepam 15 mg QHSP PRN PO 09/23/24 19:15 Ondansetron HCl 4 mg Q4HP PRN IV 09/23/24 19:15 Morphine Sulfate 2 mg Q4HPRN PRN IV 09/23/24 19:15 Sodium Chloride 1,000 ml @ 100 mls/hr Q10H IV 09/24/24 10:00 09/25/24 06:03 100 MLS/HR Acetaminophen 650 mg Q6HP PRN PO 09/24/24 10:15 Magnesium Sulfate/ Dextrose 100 ml @ 100 mls/hr Q1HR IV 09/25/24 10:00 09/25/24 11:59 Laboratory Results Laboratory Tests 09/25/24 06:09 Chemistry Test 09/25/24 06:09 Albumin 3.3 g/dL (3.2-4.8) Calcium Level 8.0 mg/dL (8.7-10.4) L Magnesium Level 1.5 mg/dL (1.6-2.6) L Total Protein 5.1 g/dL (5.7-8.2) L LFT Test 09/25/24 06:09 Alanine Aminotransferase (ALT) 50 U/L (7-40) H Alkaline Phosphatase 166 U/L (46-116) H Aspartate Amino Transferase (AST) 51 U/L (13-40) H Total Bilirubin 1.4 mg/dL (0.2-1.0) H Urinalysis Test 09/24/24 10:05 Urine Color Dark-yellow (Yellow) Urine Clarity Turbid (Clear) H Urine pH 5.5 (5.0-9.0) Urine Specific [place] 1.022 (1.001-1.035) Urine Protein 1+ (Negative) H Urine Ketones Negative (Negative) Urine Blood Negative /uL (Negative) Urine Nitrite Negative (Negative) Urine Bilirubin Negative (Negative) Urine Urobilinogen Normal mg/dL (Negative) Urine Leukocyte Esterase Negative /uL (Negative) Urine RBC 1 /hpf (0 - 3) Urine Microscopic WBC 4 /HPF (0-3) H Urine Squamous Epithelial Cells Few /hpf (<5) Urine Bacteria None seen /hpf (None Seen) Urine Hyaline Casts Few /lpf (0 - 2) Urine Mucus Few (None Seen) Urine Glucose Trace mg/dL (Normal) Microbiology Microbiology Date/Time Source Procedure Growth Status 09/23/24 19:30 Stool Stool Culture - Preliminary Resulted 09/23/24 19:30 Stool Shiga Toxin I & II - Final Resulted 09/23/24 19:30 Stool Clostridium difficile Toxin Assay - Final Resulted 09/23/24 13:15 Blood Blood Culture - Preliminary NO GROWTH AFTER 24 HOURS OF INCUBATION. 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 Diff is negative Change Flagyl to po Plan discussed with: Patient My Orders Orders - AISHWARYA CAMPOS MD Procedure Category Date Status Time Sodium Chloride 0.9% PHA 09/24/24 In Process 10:00 Complete Blood Count LAB 09/25/24 In Process 04:00 Code Status CODE 09/24/24 Transmitted 10:03 Acetaminophen Tablet PHA 09/24/24 In Process (Tylenol Tablet) 10:15 Magnesium Sulfate PHA 09/25/24 In Process 1gm/100ml 10:00 Date of Service: Sep 25, 2024 Billing Provider: AISHWARYA CAMPOS MD Common Visit Codes: NOT BILLABLE AISHWARYA CAMPOS MD Sep 25, 2024 10:05
[2024-09-25] MEDS: POTASSIUM CHL 20 Meq TABLET PO ONE (11:13)
[2024-09-25] MEDS: MAGNESIUM SULFATE 1GM/100ML 100 ML IV SCH (11:13)
[2024-09-25 12:31] LABS: Anisocytosis Moderate; Macrocytosis Marked; Total Cells Counted 100.0 (100)
[2024-09-25] MEDS: metroNIDAZOLE 500 MG TAB PO SCH (14:13)
[2024-09-25 14:43] VITALS: BP 130/92; PULSE 77; RESP 17; TEMP 96.4; O2SAT 100
[2024-09-25 15:47] VITALS: BP 130/92; PULSE 77; RESP 17; TEMP 96.4; O2SAT 100
[2024-09-25 17:00] VITALS: BP 128/94; PULSE 78; RESP 18; TEMP 97.1; O2SAT 100
[2024-09-25 20:00] VITALS: PULSE 82; RESP 18; O2SAT 98
[2024-09-25 21:00] VITALS: BP 137/71; PULSE 82; RESP 17; TEMP 98; O2SAT 98
[2024-09-26 01:00] VITALS: BP 110/83; PULSE 85; RESP 16; TEMP 97.5; O2SAT 100
[2024-09-26 05:00] VITALS: BP 122/88; PULSE 92; RESP 17; TEMP 97.4; O2SAT 100
[2024-09-26 06:58] LABS: Anion Gap 13 (5-15); BUN/Creatinine Ratio 19.0 (10.0-20.0); Blood Urea Nitrogen 23 mg/dL (9-23); Magnesium 1.9 mg/dL (1.6-2.6); Potassium 3.7 mmol/L (3.5-5.1); Sodium 141 mmol/L (136-145)
[2024-09-26 06:59] LABS: Alanine Aminotransferase 48 U/L (7-40); Albumin 3.7 g/dL (3.2-4.8); Alkaline Phosphatase 190 U/L (46-116); Calcium 8.5 mg/dL (8.7-10.4); Carbon Dioxide 13 mmol/L (20-31); Chloride 115 mmol/L (98-107); Glucose 114 mg/dL (74-106); Total Protein 5.6 g/dL (5.7-8.2)
[2024-09-26 07:00] LABS: Bilirubin, Total 1.4 mg/dL (0.2-1.0)
[2024-09-26 09:00] VITALS: BP 123/80; PULSE 89; RESP 15; TEMP 98.7; O2SAT 97
--- NOTE | 2024-09-26 09:08 | DVHPN2 ---
Subjective He is c/o nausea and vomiting since last night Still has diarrhea c/o dysuria Changes from previous H/P or p: Changes Objective Vitals Vital Signs Date Time Temp Pulse Resp B/P (MAP) Pulse Ox O2 Delivery O2 Flow Rate FiO2 09/26/24 05:00 97.4 92 17 122/88 (99) 100 97.4 09/25/24 20:00 Room Air* 0 21 Intake/Output Intake and Output 09/26/24 07:00 Intake Total 2300 ml Output Total 2150 ml Balance 150 ml Intake Oral 1400 ml IV Total 900 ml Output Stool Total 550 ml Drainage Total 1600 ml # Voids 2 General Appearance: Alert, Oriented X3, Cooperative Lungs: Clear to auscultation, Normal air movement Abdomen: Normal bowel sounds, Soft, No tenderness Extremities: No edema Medications Current Medications Medications Dose Ordered Sig/Landon Route Start Time Stop Time Status Last Admin Dose Admin Allopurinol 300 mg DAILY PO 09/24/24 10:00 09/25/24 11:14 300 MG Apixaban 5 mg BID PO 09/23/24 22:00 09/25/24 23:53 5 MG Atorvastatin Calcium 20 mg HS PO 09/23/24 22:00 09/25/24 23:53 20 MG Tamsulosin HCl 0.4 mg QPM PO 09/24/24 18:00 09/25/24 18:00 0.4 MG Acetaminophen/ Hydrocodone Bitart 1 tab Q4HP PRN PO 09/23/24 19:15 Temazepam 15 mg QHSP PRN PO 09/23/24 19:15 Ondansetron HCl 4 mg Q4HP PRN IV 09/23/24 19:15 Morphine Sulfate 2 mg Q4HPRN PRN IV 09/23/24 19:15 Sodium Chloride 1,000 ml @ 100 mls/hr Q10H IV 09/24/24 10:00 09/26/24 02:00 100 MLS/HR Acetaminophen 650 mg Q6HP PRN PO 09/24/24 10:15 Metronidazole 500 mg Q8HR PO 09/25/24 14:00 09/26/24 06:04 500 MG Laboratory Results Laboratory Tests 09/25/24 09:18 09/26/24 06:24 Chemistry Test 09/26/24 06:24 Albumin 3.7 g/dL (3.2-4.8) Calcium Level 8.5 mg/dL (8.7-10.4) L Magnesium Level 1.9 mg/dL (1.6-2.6) Total Protein 5.6 g/dL (5.7-8.2) L LFT Test 09/26/24 06:24 Alanine Aminotransferase (ALT) 48 U/L (7-40) H Alkaline Phosphatase 190 U/L (46-116) H Aspartate Amino Transferase (AST) 49 U/L (13-40) H Total Bilirubin 1.4 mg/dL (0.2-1.0) H Urinalysis Test 09/24/24 10:05 Urine Color Dark-yellow (Yellow) Urine Clarity Turbid (Clear) H Urine pH 5.5 (5.0-9.0) Urine Specific [place] 1.022 (1.001-1.035) Urine Protein 1+ (Negative) H Urine Ketones Negative (Negative) Urine Blood Negative /uL (Negative) Urine Nitrite Negative (Negative) Urine Bilirubin Negative (Negative) Urine Urobilinogen Normal mg/dL (Negative) Urine Leukocyte Esterase Negative /uL (Negative) Urine RBC 1 /hpf (0 - 3) Urine Microscopic WBC 4 /HPF (0-3) H Urine Squamous Epithelial Cells Few /hpf (<5) Urine Bacteria None seen /hpf (None Seen) Urine Hyaline Casts Few /lpf (0 - 2) Urine Mucus Few (None Seen) Urine Glucose Trace mg/dL (Normal) Microbiology Microbiology Date/Time Source Procedure Growth Status 09/23/24 19:30 Stool Stool Culture - Preliminary Resulted 09/23/24 19:30 Stool Shiga Toxin I & II - Final Resulted 09/23/24 19:30 Stool Clostridium difficile Toxin Assay - Final Resulted 09/23/24 13:15 Blood Blood Culture - Preliminary NO GROWTH AFTER 48 HOURS OF INCUBATION. 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 Diff is negative Change Flagyl to po 09/26/24: N/V/D: Add Protonix IV, Zofran prn Full liquids IV fluids DC Flagyl Check UA Plan discussed with: Patient My Orders Orders - AISHWARYA CAMPOS MD Procedure Category Date Status Time Full Liq Diet DIET 09/25/24 Transmitted Lunch Metronidazole Tablet PHA 09/25/24 In Process (Flagyl Tablet) 14:00 Pantoprazole PHA 09/26/24 Verified (Protonix) 10:00 Urinalysis LAB 09/26/24 Verified 09:04 Complete Blood Count LAB 09/27/24 Verified 04:00 Magnesium LAB 09/27/24 Verified 04:00 Comprehensive LAB 09/27/24 Verified Metabolic Panel 04:00 Date of Service: Sep 26, 2024 Billing Provider: AISHWARYA CAMPOS MD Common Visit Codes: NOT BILLABLE AISHWARYA CAMPOS MD Sep 26, 2024 09:08
[2024-09-26] MEDS: DIPHENOXYLATE W/ATROPINE 2.5 MG TAB PO PRN (12:17)
[2024-09-26] MEDS: PANTOPRAZOLE 40 MG/10 ML VIAL INJ IV SCH (12:17)
[2024-09-26 12:52] VITALS: BP 135/89; PULSE 84; RESP 17; TEMP 97.2; O2SAT 96
[2024-09-26 16:41] VITALS: BP 107/77; PULSE 77; RESP 16; TEMP 96.6; O2SAT 99
[2024-09-26 21:00] VITALS: BP 123/84; PULSE 94; RESP 17; TEMP 97.7; O2SAT 100
[2024-09-27 05:00] VITALS: BP 127/80; PULSE 64; RESP 18; TEMP 97.8; O2SAT 98
[2024-09-27 07:45] LABS: Hematocrit 41.3 % (41.0-53.0); Hemoglobin 14.6 g/dL (13.5-17.5); Mean Corpuscular Hemoglobin 40.8 pg (28.0-32.0); Mean Corpuscular Volume 115.6 fL (80.0-100.0)
[2024-09-27 07:48] LABS: Alanine Aminotransferase 37 U/L (7-40); Albumin 3.6 g/dL (3.2-4.8); Anion Gap 14 (5-15); BUN/Creatinine Ratio 15.3 (10.0-20.0); Blood Urea Nitrogen 20 mg/dL (9-23); Magnesium 1.9 mg/dL (1.6-2.6); Sodium 141 mmol/L (136-145)
[2024-09-27 07:49] LABS: Chloride 117 mmol/L (98-107); Potassium 3.4 mmol/L (3.5-5.1)
[2024-09-27 07:50] LABS: Alkaline Phosphatase 177 U/L (46-116); Bilirubin, Total 1.2 mg/dL (0.2-1.0); Calcium 8.2 mg/dL (8.7-10.4); Carbon Dioxide 10 mmol/L (20-31); Glucose 119 mg/dL (74-106); Total Protein 5.6 g/dL (5.7-8.2)
[2024-09-27 08:20] VITALS: BP 116/92; PULSE 94; RESP 18; TEMP 98.3; O2SAT 99
[2024-09-27 08:33] LABS: Anisocytosis Moderate; Macrocytosis Marked; Total Cells Counted 100.0 (100)
[2024-09-27 09:26] LABS: Urine Protein, UAD TRACE (Negative)
[2024-09-27 12:29] VITALS: BP 133/98; PULSE 92; RESP 19; TEMP 98; O2SAT 99
--- NOTE | 2024-09-27 13:02 | DVHPN2 ---
Subjective The patient seen and examined at bedside. Still have lots of diarrhea at the colostomy tube. Reviewed: Care Plan, H&P, Labs, Medications, Previous Orders, Radiology Changes from previous H/P or p: No Changes Objective Vitals Vital Signs Date Time Temp Pulse Resp B/P (MAP) Pulse Ox O2 Delivery O2 Flow Rate FiO2 09/27/24 12:29 98.0 92 19 133/98 (110) 99 98.0 09/26/24 20:00 Room Air* 0 21 Intake/Output Intake and Output 09/27/24 07:00 Intake Total 850 ml Output Total 1000 ml Balance -150 ml Intake Oral 850 ml Output Urine Total 575 ml Stool Total 425 ml General Appearance: Alert, Oriented X3, Cooperative Lungs: Clear to auscultation, Normal air movement Abdomen: Normal bowel sounds, Soft, No tenderness Extremities: No edema Medications Current Medications Medications Dose Ordered Sig/Landon Route Start Time Stop Time Status Last Admin Dose Admin Allopurinol 300 mg DAILY PO 09/24/24 10:00 09/27/24 09:58 300 MG Apixaban 5 mg BID PO 09/23/24 22:00 09/27/24 09:58 5 MG Atorvastatin Calcium 20 mg HS PO 09/23/24 22:00 09/26/24 22:13 20 MG Tamsulosin HCl 0.4 mg QPM PO 09/24/24 18:00 09/26/24 17:29 0.4 MG Acetaminophen/ Hydrocodone Bitart 1 tab Q4HP PRN PO 09/23/24 19:15 Temazepam 15 mg QHSP PRN PO 09/23/24 19:15 Ondansetron HCl 4 mg Q4HP PRN IV 09/23/24 19:15 Morphine Sulfate 2 mg Q4HPRN PRN IV 09/23/24 19:15 Sodium Chloride 1,000 ml @ 100 mls/hr Q10H IV 09/24/24 10:00 09/26/24 22:13 100 MLS/HR Acetaminophen 650 mg Q6HP PRN PO 09/24/24 10:15 Pantoprazole Sodium 40 mg BID IV 09/26/24 10:00 09/27/24 09:57 40 MG Diphenoxylate HCl/ Atropine 2.5 mg Q6HP PRN PO 09/26/24 09:30 09/26/24 12:17 2.5 MG Laboratory Results Laboratory Tests 09/27/24 07:02 Chemistry Test 09/27/24 07:02 Albumin 3.6 g/dL (3.2-4.8) Calcium Level 8.2 mg/dL (8.7-10.4) L Magnesium Level 1.9 mg/dL (1.6-2.6) Total Protein 5.6 g/dL (5.7-8.2) L LFT Test 09/27/24 07:02 Alanine Aminotransferase (ALT) 37 U/L (7-40) Alkaline Phosphatase 177 U/L (46-116) H Aspartate Amino Transferase (AST) 40 U/L (13-40) Total Bilirubin 1.2 mg/dL (0.2-1.0) H Urinalysis Test 09/24/24 10:05 09/26/24 08:44 Urine Hyaline Casts Few /lpf (0 - 2) Urine Mucus Few (None Seen) Urine Color Yellow (Yellow) Urine Clarity Clear (Clear) Urine pH 6.0 (5.0-9.0) Urine Specific [place] 1.020 (1.001-1.035) Urine Protein Trace (Negative) H Urine Ketones Trace (Negative) Urine Blood Negative /uL (Negative) Urine Nitrite Negative (Negative) Urine Bilirubin Negative (Negative) Urine Urobilinogen Normal mg/dL (Negative) Urine Leukocyte Esterase Trace /uL (Negative) Urine RBC 1 /hpf (0 - 3) Urine Microscopic WBC 1 /HPF (0-3) Urine Squamous Epithelial Cells Few /hpf (<5) Urine Bacteria None seen /hpf (None Seen) Urine Glucose Normal mg/dL (Normal) Microbiology Microbiology Date/Time Source Procedure Growth Status 09/23/24 19:30 Stool Stool Culture - Final Complete 09/23/24 19:30 Stool Shiga Toxin I & II - Final Complete 09/23/24 19:30 Stool Clostridium difficile Toxin Assay - Final Complete 09/23/24 13:15 Blood Blood Culture - Preliminary NO GROWTH AFTER 72 HOURS OF INCUBATION. 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 Continue IV antibiotic Continue IVF Will follow up with diarrhea. Replace electrolyte as needed. Plan discussed with: Patient Date of Service: Sep 27, 2024 Billing Provider: AARTI HOLLINGSWORTH MD Common Visit Codes: [id number] INP/OBS CARE(HIGH) AARTI HOLLINGSWORTH MD Sep 27, 2024 13:02
[2024-09-27] MEDS: MAALOX PLUS or MAALOX 30 ML PO PRN (15:07)
[2024-09-27] MEDS: HYDROcodone-ACET 5/325MG TAB PO PRN (15:07)
[2024-09-27 17:00] VITALS: BP 123/89; PULSE 98; RESP 18; TEMP 98.3; O2SAT 99
[2024-09-27] MEDS: SUCRALFATE 1 GM/10 ML ORAL SUSP PO SCH (18:22)
[2024-09-27 21:00] VITALS: BP 122/91; PULSE 93; RESP 16; TEMP 97.6; O2SAT 98
[2024-09-28 01:00] VITALS: BP 123/96; PULSE 83; RESP 17; TEMP 97.5; O2SAT 98
[2024-09-28 05:00] VITALS: BP 126/76; PULSE 80; RESP 16; TEMP 98.2; O2SAT 98
[2024-09-28 09:00] VITALS: BP 116/84; PULSE 87; RESP 16; TEMP 97.1; O2SAT 100
[2024-09-28 12:44] VITALS: BP 125/91; PULSE 77; RESP 16; TEMP 96.7; O2SAT 100
--- NOTE | 2024-09-28 15:19 | DVHPN2 ---
Subjective The patient seen and examined at bedside. Still have lots of diarrhea at the colostomy tube. Reviewed: Care Plan, H&P, Labs, Medications, Previous Orders, Radiology Changes from previous H/P or p: No Changes Objective Vitals Vital Signs Date Time Temp Pulse Resp B/P (MAP) Pulse Ox O2 Delivery O2 Flow Rate FiO2 09/28/24 12:44 96.7 77 16 125/91 (102) 100 96.7 09/28/24 08:00 Room Air* 0 21 Intake/Output Intake and Output 09/28/24 07:00 Intake Total 2997.8 ml Output Total 1000 ml Balance 1997.8 ml Intake Oral 640 ml IV Total 2357.8 ml Output Urine Total 300 ml Stool Total 700 ml # Bowel Movements 3 General Appearance: Alert, Oriented X3, Cooperative Lungs: Clear to auscultation, Normal air movement Abdomen: Normal bowel sounds, Soft, No tenderness Extremities: No edema Medications Current Medications Medications Dose Ordered Sig/Landon Route Start Time Stop Time Status Last Admin Dose Admin Allopurinol 300 mg DAILY PO 09/24/24 10:00 09/28/24 09:52 300 MG Apixaban 5 mg BID PO 09/23/24 22:00 09/28/24 09:59 5 MG Atorvastatin Calcium 20 mg HS PO 09/23/24 22:00 09/27/24 21:56 20 MG Tamsulosin HCl 0.4 mg QPM PO 09/24/24 18:00 09/27/24 18:22 0.4 MG Acetaminophen/ Hydrocodone Bitart 1 tab Q4HP PRN PO 09/23/24 19:15 09/27/24 15:07 1 TAB Temazepam 15 mg QHSP PRN PO 09/23/24 19:15 Ondansetron HCl 4 mg Q4HP PRN IV 09/23/24 19:15 Morphine Sulfate 2 mg Q4HPRN PRN IV 09/23/24 19:15 Sodium Chloride 1,000 ml @ 100 mls/hr Q10H IV 09/24/24 10:00 09/28/24 14:00 100 MLS/HR Acetaminophen 650 mg Q6HP PRN PO 09/24/24 10:15 Pantoprazole Sodium 40 mg BID IV 09/26/24 10:00 09/28/24 09:51 40 MG Diphenoxylate HCl/ Atropine 2.5 mg Q6HP PRN PO 09/26/24 09:30 09/28/24 14:50 2.5 MG Sucralfate 1 gm Q6HR PO 09/27/24 18:00 09/28/24 11:30 1 GM Al Hydrox/Mg Hydrox/Simethicone 15 ml Q8HP PRN PO 09/27/24 14:15 09/28/24 11:31 15 ML Laboratory Results Laboratory Tests 09/27/24 07:02 Urinalysis Test 09/24/24 10:05 09/26/24 08:44 Urine Hyaline Casts Few /lpf (0 - 2) Urine Mucus Few (None Seen) Urine Color Yellow (Yellow) Urine Clarity Clear (Clear) Urine pH 6.0 (5.0-9.0) Urine Specific [place] 1.020 (1.001-1.035) Urine Protein Trace (Negative) H Urine Ketones Trace (Negative) Urine Blood Negative /uL (Negative) Urine Nitrite Negative (Negative) Urine Bilirubin Negative (Negative) Urine Urobilinogen Normal mg/dL (Negative) Urine Leukocyte Esterase Trace /uL (Negative) Urine RBC 1 /hpf (0 - 3) Urine Microscopic WBC 1 /HPF (0-3) Urine Squamous Epithelial Cells Few /hpf (<5) Urine Bacteria None seen /hpf (None Seen) Urine Glucose Normal mg/dL (Normal) Microbiology Microbiology Date/Time Source Procedure Growth Status 09/23/24 19:30 Stool Stool Culture - Final Complete 09/23/24 19:30 Stool Shiga Toxin I & II - Final Complete 09/23/24 19:30 Stool Clostridium difficile Toxin Assay - Final Complete 09/23/24 13:15 Blood Blood Culture - Final NO GROWTH AFTER 5 DAYS OF INCUBATION. 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 Continue IV antibiotic Continue IVF Will follow up with diarrhea. Replace electrolyte as needed. This medical document was created using an electronic medical record system with [employer] direct computerized dictation system. Although this document has been carefully reviewed, there may still be some phonetic and typographical errors. These areas are purely typographical due to imperfections of the software programs, and do not reflect any compromise in the patient's medical care. Plan discussed with: Patient Date of Service: Sep 28, 2024 Billing Provider: AARTI HOLLINGSWORTH MD Common Visit Codes: [id number] INP/OBS CARE(HIGH) AARTI HOLLINGSWORTH MD Sep 28, 2024 15:19
[2024-09-28 16:12] LABS: Urine Protein, UAD 1+ (Negative)
[2024-09-28 16:53] VITALS: BP 120/89; PULSE 89; RESP 16; TEMP 96.8; O2SAT 99
[2024-09-28] MEDS: ACETAMINOPHEN 325 MG TAB PO PRN (17:18)
[2024-09-28] MEDS: ONDANSETRON HCL 4 MG/2 ML VIAL IV PRN (21:07)
[2024-09-29 01:00] VITALS: BP 155/89; PULSE 91; RESP 16; TEMP 97; O2SAT 99
[2024-09-29 05:00] VITALS: BP 128/86; PULSE 83; RESP 16; TEMP 97; O2SAT 98
[2024-09-29 09:00] VITALS: BP 107/78; PULSE 83; RESP 19; TEMP 97.4; O2SAT 99
[2024-09-29 13:00] VITALS: BP 122/94; PULSE 89; RESP 20; TEMP 97.3; O2SAT 100
[2024-09-29 17:00] VITALS: BP 109/67; PULSE 55; RESP 19; TEMP 97.3; O2SAT 100
[2024-09-29 21:00] VITALS: BP 122/91; PULSE 88; RESP 18; TEMP 97.9; O2SAT 97
--- NOTE | 2024-09-29 22:51 | DVHPN2 ---
Subjective The patient seen and examined at bedside. Still have lots of diarrhea at the colostomy tube. Reviewed: Care Plan, H&P, Labs, Medications, Previous Orders, Radiology Changes from previous H/P or p: No Changes Objective Vitals Vital Signs Date Time Temp Pulse Resp B/P (MAP) Pulse Ox O2 Delivery O2 Flow Rate FiO2 09/29/24 21:00 97.9 88 18 122/91 (101) 97 97.9 09/29/24 20:00 Room Air* 0 21 Intake/Output Intake and Output 09/29/24 07:00 Intake Total 4387.3 ml Output Total 2700 ml Balance 1687.3 ml Intake Oral 2760 ml IV Total 1627.3 ml Output Urine Total 1200 ml Stool Total 1500 ml General Appearance: Alert, Oriented X3, Cooperative Lungs: Clear to auscultation, Normal air movement Abdomen: Normal bowel sounds, Soft, No tenderness Extremities: No edema Medications Current Medications Medications Dose Ordered Sig/Landon Route Start Time Stop Time Status Last Admin Dose Admin Allopurinol 300 mg DAILY PO 09/24/24 10:00 09/29/24 09:42 300 MG Apixaban 5 mg BID PO 09/23/24 22:00 09/29/24 09:42 5 MG Atorvastatin Calcium 20 mg HS PO 09/23/24 22:00 09/29/24 21:36 20 MG Tamsulosin HCl 0.4 mg QPM PO 09/24/24 18:00 09/29/24 17:13 0.4 MG Acetaminophen/ Hydrocodone Bitart 1 tab Q4HP PRN PO 09/23/24 19:15 09/29/24 05:44 1 TAB Temazepam 15 mg QHSP PRN PO 09/23/24 19:15 Ondansetron HCl 4 mg Q4HP PRN IV 09/23/24 19:15 09/28/24 21:07 4 MG Morphine Sulfate 2 mg Q4HPRN PRN IV 09/23/24 19:15 Sodium Chloride 1,000 ml @ 100 mls/hr Q10H IV 09/24/24 10:00 09/29/24 21:38 100 MLS/HR Acetaminophen 650 mg Q6HP PRN PO 09/24/24 10:15 09/28/24 17:18 650 MG Pantoprazole Sodium 40 mg BID IV 09/26/24 10:00 09/29/24 21:36 40 MG Diphenoxylate HCl/ Atropine 2.5 mg Q6HP PRN PO 09/26/24 09:30 09/29/24 21:36 2.5 MG Sucralfate 1 gm Q6HR PO 09/27/24 18:00 09/29/24 17:13 1 GM Al Hydrox/Mg Hydrox/Simethicone 15 ml Q8HP PRN PO 09/27/24 14:15 09/29/24 21:35 15 ML Laboratory Results Laboratory Tests 09/27/24 07:02 Urinalysis Test 09/28/24 15:44 Urine Color Yellow (Yellow) Urine Clarity Clear (Clear) Urine pH 6.0 (5.0-9.0) Urine Specific [place] 1.017 (1.001-1.035) Urine Protein 1+ (Negative) H Urine Ketones Negative (Negative) Urine Blood Negative /uL (Negative) Urine Nitrite Negative (Negative) Urine Bilirubin Negative (Negative) Urine Urobilinogen Normal mg/dL (Negative) Urine Leukocyte Esterase Negative /uL (Negative) Urine RBC <1 /hpf (0 - 3) Urine Microscopic WBC 1 /HPF (0-3) Urine Squamous Epithelial Cells Few /hpf (<5) Urine Bacteria Few /hpf (None Seen) H Urine Hyaline Casts Few /lpf (0 - 2) Urine Mucus Few (None Seen) Urine Glucose Normal mg/dL (Normal) Microbiology Microbiology Date/Time Source Procedure Growth Status 09/23/24 19:30 Stool Stool Culture - Final Complete 09/23/24 19:30 Stool Shiga Toxin I & II - Final Complete 09/23/24 19:30 Stool Clostridium difficile Toxin Assay - Final Complete 09/23/24 13:15 Blood Blood Culture - Final NO GROWTH AFTER 5 DAYS OF INCUBATION. 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 Continue IV antibiotic Continue IVF Will follow up with diarrhea. Replace electrolyte as needed. This medical document was created using an electronic medical record system with [employer] direct computerized dictation system. Although this document has been carefully reviewed, there may still be some phonetic and typographical errors. These areas are purely typographical due to imperfections of the software programs, and do not reflect any compromise in the patient's medical care. Plan discussed with: Patient Date of Service: Sep 29, 2024 Billing Provider: AARTI HOLLINGSWORTH MD Common Visit Codes: [id number] INP/OBS CARE(HIGH) AARTI HOLLINGSWORTH MD Sep 29, 2024 22:51
[2024-09-30 01:00] VITALS: BP 128/94; PULSE 88; RESP 17; TEMP 97.5; O2SAT 97
[2024-09-30 05:00] VITALS: BP 125/91; PULSE 77; RESP 19; TEMP 97.6; O2SAT 96
[2024-09-30 09:30] VITALS: BP 130/106; PULSE 18; RESP 83; TEMP 98.1; O2SAT 97
--- NOTE | 2024-09-30 10:02 | DVHPN2 ---
Subjective Still had severe diarrhea No abd pain Reviewed: Care Plan, H&P, Labs, Medications, Previous Orders, Radiology Changes from previous H/P or p: Changes Objective Vitals Vital Signs Date Time Temp Pulse Resp B/P (MAP) Pulse Ox O2 Delivery O2 Flow Rate FiO2 09/30/24 09:30 98.1 18 83 130/106 (114) 97 98.1 09/29/24 20:00 Room Air* 0 21 Intake/Output Intake and Output 09/30/24 07:00 Intake Total 2822.3 ml Output Total 1475 ml Balance 1347.3 ml Intake Oral 2050 ml IV Total 772.3 ml Output Urine Total 500 ml Stool Total 975 ml General Appearance: Alert, Oriented X3, Cooperative Lungs: Clear to auscultation, Normal air movement Abdomen: Normal bowel sounds, Soft, No tenderness Extremities: No edema Medications Current Medications Medications Dose Ordered Sig/Landon Route Start Time Stop Time Status Last Admin Dose Admin Allopurinol 300 mg DAILY PO 09/24/24 10:00 09/29/24 09:42 300 MG Apixaban 5 mg BID PO 09/23/24 22:00 09/29/24 09:42 5 MG Atorvastatin Calcium 20 mg HS PO 09/23/24 22:00 09/29/24 21:36 20 MG Tamsulosin HCl 0.4 mg QPM PO 09/24/24 18:00 09/29/24 17:13 0.4 MG Acetaminophen/ Hydrocodone Bitart 1 tab Q4HP PRN PO 09/23/24 19:15 09/30/24 00:54 1 TAB Temazepam 15 mg QHSP PRN PO 09/23/24 19:15 Ondansetron HCl 4 mg Q4HP PRN IV 09/23/24 19:15 09/28/24 21:07 4 MG Morphine Sulfate 2 mg Q4HPRN PRN IV 09/23/24 19:15 Sodium Chloride 1,000 ml @ 100 mls/hr Q10H IV 09/24/24 10:00 09/30/24 05:55 100 MLS/HR Acetaminophen 650 mg Q6HP PRN PO 09/24/24 10:15 09/28/24 17:18 650 MG Pantoprazole Sodium 40 mg BID IV 09/26/24 10:00 09/29/24 21:36 40 MG Diphenoxylate HCl/ Atropine 2.5 mg Q6HP PRN PO 09/26/24 09:30 09/30/24 05:48 2.5 MG Sucralfate 1 gm Q6HR PO 09/27/24 18:00 09/30/24 05:48 1 GM Al Hydrox/Mg Hydrox/Simethicone 15 ml Q8HP PRN PO 09/27/24 14:15 09/30/24 05:48 15 ML Magnesium Oxide 400 mg BID PO 09/30/24 10:00 UNV Saccharomyces Boulardii 250 mg BID PO 09/30/24 10:00 UNV Laboratory Results Laboratory Tests 09/27/24 07:02 Urinalysis Test 09/28/24 15:44 Urine Color Yellow (Yellow) Urine Clarity Clear (Clear) Urine pH 6.0 (5.0-9.0) Urine Specific [place] 1.017 (1.001-1.035) Urine Protein 1+ (Negative) H Urine Ketones Negative (Negative) Urine Blood Negative /uL (Negative) Urine Nitrite Negative (Negative) Urine Bilirubin Negative (Negative) Urine Urobilinogen Normal mg/dL (Negative) Urine Leukocyte Esterase Negative /uL (Negative) Urine RBC <1 /hpf (0 - 3) Urine Microscopic WBC 1 /HPF (0-3) Urine Squamous Epithelial Cells Few /hpf (<5) Urine Bacteria Few /hpf (None Seen) H Urine Hyaline Casts Few /lpf (0 - 2) Urine Mucus Few (None Seen) Urine Glucose Normal mg/dL (Normal) Microbiology Microbiology Date/Time Source Procedure Growth Status 09/23/24 19:30 Stool Stool Culture - Final Complete 09/23/24 19:30 Stool Shiga Toxin I & II - Final Complete 09/23/24 19:30 Stool Clostridium difficile Toxin Assay - Final Complete 09/23/24 13:15 Blood Blood Culture - Final NO GROWTH AFTER 5 DAYS OF INCUBATION. 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 Diff Stop Mag / alum IV fluids Replace K+ and Mg Monitor closely Plan discussed with: Patient My Orders Orders - AISHWARYA CAMPOS MD Procedure Category Date Status Time Clostridium Difficile DELFINA 09/30/24 Logged Toxin 09:53 Magnesium Oxide PHA 09/30/24 Logged Tablet (Mag-Ox Tablet) 10:00 Potassium Er Tablet PHA 09/30/24 Logged (Klor-Con Tablet) 10:00 Florastor (S. PHA 09/30/24 Transmitted Boulardii) (Florastor) 10:00 Complete Blood Count LAB 10/01/24 Verified 04:00 Comprehensive LAB 10/01/24 Verified Metabolic Panel 04:00 Magnesium LAB 10/01/24 Verified 04:00 Pantoprazole Tablet PHA 10/01/24 Verified (Protonix Tablet) 06:00 Pantoprazole Tablet PHA 09/30/24 Verified (Protonix Tablet) 10:00 Date of Service: Sep 30, 2024 Billing Provider: AISHWARYA CAMPOS MD Common Visit Codes: NOT BILLABLE AISHWARYA CAMPOS MD Sep 30, 2024 10:02
[2024-09-30] MEDS: POTASSIUM CHL 20 Meq TABLET PO ONE (12:12)
[2024-09-30] MEDS: PANTOPRAZOLE 40 MG TAB PO ONE (12:12)
[2024-09-30] MEDS: FLORASTOR (S. BOULARDII) 250 MG CAP PO SCH (12:13)
[2024-09-30] MEDS: MAGNESIUM OXIDE 400 MG TAB PO SCH (12:13)
[2024-09-30 13:03] VITALS: BP 127/80; PULSE 89; RESP 20; TEMP 97.9; O2SAT 95
[2024-09-30 16:47] VITALS: BP 142/87; PULSE 85; RESP 20; TEMP 97.6; O2SAT 96
[2024-09-30 21:00] VITALS: BP 138/89; PULSE 84; RESP 18; TEMP 98.2; O2SAT 99
[2024-09-30] MEDS: SUCRALFATE 1 GM/10 ML ORAL SUSP PO SCH (21:05)
[2024-10-01 01:26] VITALS: BP 154/98; PULSE 77; RESP 17; TEMP 97.9; O2SAT 98
[2024-10-01 05:00] VITALS: BP 119/76; PULSE 79; RESP 20; TEMP 98.4; O2SAT 97
[2024-10-01] MEDS: PANTOPRAZOLE 40 MG TAB PO SCH (05:20)
[2024-10-01 06:00] LABS: Hemoglobin 13.4 g/dL (13.5-17.5)
[2024-10-01 06:04] LABS: Hematocrit 37.2 % (41.0-53.0); Mean Corpuscular Hemoglobin 40.3 pg (28.0-32.0); Mean Corpuscular Volume 112.0 fL (80.0-100.0)
[2024-10-01 06:19] LABS: Alanine Aminotransferase 18 U/L (7-40); Anion Gap 13 (5-15); BUN/Creatinine Ratio 10.3 (10.0-20.0); Bilirubin, Total 0.8 mg/dL (0.2-1.0); Blood Urea Nitrogen 12 mg/dL (9-23); Sodium 143 mmol/L (136-145)
[2024-10-01 06:22] LABS: Albumin 3.0 g/dL (3.2-4.8); Alkaline Phosphatase 135 U/L (46-116); Calcium 8.6 mg/dL (8.7-10.4); Carbon Dioxide 12 mmol/L (20-31); Chloride 118 mmol/L (98-107); Glucose 114 mg/dL (74-106); Magnesium 1.5 mg/dL (1.6-2.6); Potassium 2.6 mmol/L (3.5-5.1); Total Protein 5.0 g/dL (5.7-8.2)
[2024-10-01 06:53] LABS: Total Cells Counted 100.0 (100)
[2024-10-01 06:54] LABS: Anisocytosis Moderate; Macrocytosis Marked
[2024-10-01 08:38] VITALS: BP 114/78; PULSE 84; RESP 20; TEMP 97.8; O2SAT 98
--- NOTE | 2024-10-01 10:00 | DVHPN2 ---
Subjective Still with high volume colostomy output Reviewed: Care Plan, H&P, Labs, Medications, Previous Orders, Radiology Changes from previous H/P or p: Changes Objective Vitals Vital Signs Date Time Temp Pulse Resp B/P (MAP) Pulse Ox O2 Delivery O2 Flow Rate FiO2 10/01/24 08:38 97.8 84 20 114/78 (90) 98 97.8 10/01/24 07:50 Room Air* 0 21 Intake/Output Intake and Output 10/01/24 07:00 Intake Total 2120 ml Output Total 2100 ml Balance 20 ml Intake Oral 1320 ml IV Total 800 ml Output Urine Total 950 ml Stool Total 450 ml Urine/Stool Mix 300 ml Gastric Drainage Total 400 ml # Voids 5 # Bowel Movements 2 General Appearance: Alert, Oriented X3, Cooperative Lungs: Clear to auscultation, Normal air movement Abdomen: Normal bowel sounds, Soft, No tenderness Extremities: No edema Medications Current Medications Medications Dose Ordered Sig/Landon Route Start Time Stop Time Status Last Admin Dose Admin Allopurinol 300 mg DAILY PO 09/24/24 10:00 09/30/24 10:19 300 MG Apixaban 5 mg BID PO 09/23/24 22:00 09/30/24 21:05 5 MG Atorvastatin Calcium 20 mg HS PO 09/23/24 22:00 09/30/24 21:06 20 MG Tamsulosin HCl 0.4 mg QPM PO 09/24/24 18:00 09/30/24 18:32 0.4 MG Acetaminophen/ Hydrocodone Bitart 1 tab Q4HP PRN PO 09/23/24 19:15 09/30/24 00:54 1 TAB Ondansetron HCl 4 mg Q4HP PRN IV 09/23/24 19:15 09/28/24 21:07 4 MG Morphine Sulfate 2 mg Q4HPRN PRN IV 09/23/24 19:15 Sodium Chloride 1,000 ml @ 100 mls/hr Q10H IV 09/24/24 10:00 10/01/24 02:00 100 MLS/HR Acetaminophen 650 mg Q6HP PRN PO 09/24/24 10:15 09/28/24 17:18 650 MG Diphenoxylate HCl/ Atropine 2.5 mg Q6HP PRN PO 09/26/24 09:30 09/30/24 05:48 2.5 MG Magnesium Oxide 400 mg BID PO 09/30/24 10:00 09/30/24 21:05 400 MG Saccharomyces Boulardii 250 mg BID PO 09/30/24 10:00 09/30/24 21:05 250 MG Pantoprazole Sodium 40 mg DAILY@0600 PO 10/01/24 06:00 10/01/24 05:20 40 MG Sucralfate 1 gm ACHS PO 09/30/24 22:00 10/01/24 05:20 1 GM Laboratory Results Laboratory Tests 10/01/24 05:25 Chemistry Test 10/01/24 05:25 Albumin 3.0 g/dL (3.2-4.8) L Calcium Level 8.6 mg/dL (8.7-10.4) L Magnesium Level 1.5 mg/dL (1.6-2.6) L Total Protein 5.0 g/dL (5.7-8.2) L LFT Test 10/01/24 05:25 Alanine Aminotransferase (ALT) 18 U/L (7-40) Alkaline Phosphatase 135 U/L (46-116) H Aspartate Amino Transferase (AST) 26 U/L (13-40) Total Bilirubin 0.8 mg/dL (0.2-1.0) Urinalysis Test 09/28/24 15:44 Urine Color Yellow (Yellow) Urine Clarity Clear (Clear) Urine pH 6.0 (5.0-9.0) Urine Specific [place] 1.017 (1.001-1.035) Urine Protein 1+ (Negative) H Urine Ketones Negative (Negative) Urine Blood Negative /uL (Negative) Urine Nitrite Negative (Negative) Urine Bilirubin Negative (Negative) Urine Urobilinogen Normal mg/dL (Negative) Urine Leukocyte Esterase Negative /uL (Negative) Urine RBC <1 /hpf (0 - 3) Urine Microscopic WBC 1 /HPF (0-3) Urine Squamous Epithelial Cells Few /hpf (<5) Urine Bacteria Few /hpf (None Seen) H Urine Hyaline Casts Few /lpf (0 - 2) Urine Mucus Few (None Seen) Urine Glucose Normal mg/dL (Normal) Microbiology Microbiology Date/Time Source Procedure Growth Status 09/30/24 10:30 Stool Clostridium difficile Toxin Assay - Final Complete 09/23/24 13:15 Blood Blood Culture - Final NO GROWTH AFTER 5 DAYS OF INCUBATION. 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 Diff Stop Mag / alum IV fluids Replace K+ and Mg Monitor closely 10/01/24: Diarrhea, ? C. Diff: Start Vanco po Repeat C. Diff in progress Hypomagnesemia: Replace Hypokalemia: Replace Plan discussed with: Patient My Orders Orders - AISHWARYA CAMPOS MD Procedure Category Date Status Time Pantoprazole Tablet PHA 10/01/24 In Process (Protonix Tablet) 06:00 Sucralfate Susp PHA 09/30/24 In Process (Carafate Susp) 22:00 Clostridium Difficile DELFINA 10/01/24 Logged Toxin 09:16 Magnesium Tato PHA 10/01/24 Transmitted 10:00 Potassium Effervesent PHA 10/01/24 Transmitted Tab (Klor-Con/Ef) 10:00 Vancomycin Po PHA 10/01/24 Transmitted (Vancomycin 12:00 Vancomycin Po PHA 10/01/24 Transmitted (Vancomycin 10:00 Date of Service: Oct 01, 2024 Billing Provider: AISHWARYA CAMPOS MD Common Visit Codes: NOT BILLABLE AISHWARYA CAMPOS MD Oct 01, 2024 10:00
[2024-10-01] MEDS: MAGNESIUM SULFATE 1GM/100ML 100 ML IV SCH (11:58)
[2024-10-01] MEDS: VANCOMYCIN HCL 250 MG CAP PO ONE (11:58)
[2024-10-01] MEDS: POTASSIUM EFFERVESENT TAB 25 MEQ PO ONE (11:58)
[2024-10-01] MEDS: VANCOMYCIN HCL 250 MG CAP PO SCH (13:14)
[2024-10-01 13:26] VITALS: BP 129/74; PULSE 83; RESP 20; TEMP 97.6; O2SAT 97
[2024-10-01 17:00] VITALS: BP 128/83; PULSE 76; RESP 20; TEMP 98; O2SAT 98
[2024-10-01 21:00] VITALS: BP 124/99; PULSE 94; RESP 17; TEMP 98.3; O2SAT 100
[2024-10-02] VITALS (7 sets, daily range): BP systolic 104–126; BP diastolic 74–95; PULSE 76–86; RESP 17–19; TEMP 96.4–98.6; O2SAT 98–100
[2024-10-02 06:22] LABS: Alanine Aminotransferase 19 U/L (7-40); Anion Gap 13 (5-15); BUN/Creatinine Ratio 9.4 (10.0-20.0); Bilirubin, Total 0.9 mg/dL (0.2-1.0); Blood Urea Nitrogen 13 mg/dL (9-23); Sodium 144 mmol/L (136-145)
[2024-10-02 06:53] LABS: Chloride 117 mmol/L (98-107); Potassium 2.9 mmol/L (3.5-5.1)
[2024-10-02 06:58] LABS: Albumin 3.0 g/dL (3.2-4.8); Alkaline Phosphatase 133 U/L (46-116); Calcium 8.5 mg/dL (8.7-10.4); Carbon Dioxide 14 mmol/L (20-31); Glucose 153 mg/dL (74-106); Total Protein 5.1 g/dL (5.7-8.2)
--- NOTE | 2024-10-02 13:50 | DVHPN2 ---
Subjective Still with high volume colostomy output C. Diff was negative again K+ is still low Reviewed: Care Plan, H&P, Labs, Medications, Previous Orders, Radiology Changes from previous H/P or p: Changes Objective Vitals Vital Signs Date Time Temp Pulse Resp B/P (MAP) Pulse Ox O2 Delivery O2 Flow Rate FiO2 10/02/24 13:00 96.4 85 19 115/80 (92) 100 96.4 10/01/24 20:00 Room Air* 0 21 Intake/Output Intake and Output 10/02/24 07:00 Intake Total 2760 ml Output Total 2800 ml Balance -40 ml Intake Oral 1760 ml IV Total 1000 ml Output Urine Total 1200 ml Stool Total 1000 ml Urine/Stool Mix 600 ml General Appearance: Alert, Oriented X3, Cooperative Lungs: Clear to auscultation, Normal air movement Abdomen: Normal bowel sounds, Soft, No tenderness Extremities: No edema Medications Current Medications Medications Dose Ordered Sig/Landon Route Start Time Stop Time Status Last Admin Dose Admin Allopurinol 300 mg DAILY PO 09/24/24 10:00 10/02/24 10:14 300 MG Apixaban 5 mg BID PO 09/23/24 22:00 10/02/24 10:14 5 MG Atorvastatin Calcium 20 mg HS PO 09/23/24 22:00 10/01/24 21:08 20 MG Tamsulosin HCl 0.4 mg QPM PO 09/24/24 18:00 10/01/24 18:45 0.4 MG Acetaminophen/ Hydrocodone Bitart 1 tab Q4HP PRN PO 09/23/24 19:15 09/30/24 00:54 1 TAB Ondansetron HCl 4 mg Q4HP PRN IV 09/23/24 19:15 09/28/24 21:07 4 MG Morphine Sulfate 2 mg Q4HPRN PRN IV 09/23/24 19:15 Sodium Chloride 1,000 ml @ 100 mls/hr Q10H IV 09/24/24 10:00 10/01/24 22:00 100 MLS/HR Acetaminophen 650 mg Q6HP PRN PO 09/24/24 10:15 09/28/24 17:18 650 MG Diphenoxylate HCl/ Atropine 2.5 mg Q6HP PRN PO 09/26/24 09:30 09/30/24 05:48 2.5 MG Magnesium Oxide 400 mg BID PO 09/30/24 10:00 10/02/24 10:14 400 MG Saccharomyces Boulardii 250 mg BID PO 09/30/24 10:00 10/02/24 10:14 250 MG Pantoprazole Sodium 40 mg DAILY@0600 PO 10/01/24 06:00 10/02/24 05:02 40 MG Sucralfate 1 gm ACHS PO 09/30/24 22:00 10/01/24 21:09 1 GM Vancomycin HCl 250 mg QID PO 10/01/24 12:00 10/02/24 12:53 250 MG Laboratory Results Laboratory Tests 10/01/24 05:25 10/02/24 05:22 Chemistry Test 10/02/24 05:22 Albumin 3.0 g/dL (3.2-4.8) L Calcium Level 8.5 mg/dL (8.7-10.4) L Total Protein 5.1 g/dL (5.7-8.2) L LFT Test 10/02/24 05:22 Alanine Aminotransferase (ALT) 19 U/L (7-40) Alkaline Phosphatase 133 U/L (46-116) H Aspartate Amino Transferase (AST) 42 U/L (13-40) H Total Bilirubin 0.9 mg/dL (0.2-1.0) Urinalysis Test 09/28/24 15:44 Urine Color Yellow (Yellow) Urine Clarity Clear (Clear) Urine pH 6.0 (5.0-9.0) Urine Specific [place] 1.017 (1.001-1.035) Urine Protein 1+ (Negative) H Urine Ketones Negative (Negative) Urine Blood Negative /uL (Negative) Urine Nitrite Negative (Negative) Urine Bilirubin Negative (Negative) Urine Urobilinogen Normal mg/dL (Negative) Urine Leukocyte Esterase Negative /uL (Negative) Urine RBC <1 /hpf (0 - 3) Urine Microscopic WBC 1 /HPF (0-3) Urine Squamous Epithelial Cells Few /hpf (<5) Urine Bacteria Few /hpf (None Seen) H Urine Hyaline Casts Few /lpf (0 - 2) Urine Mucus Few (None Seen) Urine Glucose Normal mg/dL (Normal) Microbiology Microbiology Date/Time Source Procedure Growth Status 10/01/24 18:00 Stool Clostridium difficile Toxin Assay - Final Complete 09/23/24 13:15 Blood Blood Culture - Final NO GROWTH AFTER 5 DAYS OF INCUBATION. 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 Diff Stop Mag / alum IV fluids Replace K+ and Mg Monitor closely 10/01/24: Diarrhea, ? C. Diff: Start Vanco po Repeat C. Diff in progress Hypomagnesemia: Replace Hypokalemia: Replace 10/02/24: Persistent diarrhea: Consult GI PO Vanco Florastor GERD: Protonix and Carafate ANNE-MARIE: IV fluids Hypokalemia: Replace Plan discussed with: Patient, Spouse My Orders Orders - AISHWARYA CAMPOS MD Procedure Category Date Status Time * [facility] San[facility] Technician CONS 10/02/24 Transmitted 13:47 Date of Service: Oct 02, 2024 Billing Provider: AISHWARYA CAMPOS MD Common Visit Codes: NOT BILLABLE AISHWARYA CAMPOS MD Oct 02, 2024 13:50
[2024-10-02] MEDS: POTASSIUM EFFERVESENT TAB 25 MEQ PO ONE (14:24)
--- NOTE | 2024-10-02 15:04 | DVHINCON2 ---
GI Consult Consult Note GI consult note Date of Consultation: 10/02/2024 Chief Complaint: Diarrhea Referring Physician: Dr. Baez H&P: 69-year-old male with history of colon cancer with Mets to the liver currently ongoing chemotherapy presents with diarrhea. Patient diagnosed with colon cancer January 06 status post colectomy with colostomy bag, now having large loose stool for the past two weeks. Patient had similar symptoms about 4 times in the past few months but symptoms resolved in much shorter span of time. Also diagnosed with C diff colitis eight weeks ago. No nausea or vomiting. Denies fever or chills. Past Medical History: Colon cancer with metastases to the liver, atrial fibrillation, CVA Past Surgical History: Colectomy with colostomy placement, tonsillectomy Social History: NO smoking, drinking ETOH and use of illegal drugs. Family History: Noncontributory Review of Systems: Constitutional: no fever, chill, weight loss HEENT: no eye pain, no hearing loss, no oral lesion, no scleral icterus Heart: no chest pain, no chest pressure Lung: no cough, no dyspnea with exertion Abdomen: see HPI Physical exam: General: NAD, AAOX3 Chest: lung serrano clear to auscultation Heart: RRR, no murmur Abdomen: non-distended, no tenderness to palpation, +BS, colostomy bag in place Labs: 10/02/24 05:22 Chemistry Test 10/02/24 05:22 Albumin 3.0 g/dL (3.2-4.8) L Calcium Level 8.5 mg/dL (8.7-10.4) L Total Protein 5.1 g/dL (5.7-8.2) L LFT Test 10/02/24 05:22 Alanine Aminotransferase (ALT) 19 U/L (7-40) Alkaline Phosphatase 133 U/L (46-116) H Aspartate Amino Transferase (AST) 42 U/L (13-40) H Total Bilirubin 0.9 mg/dL (0.2-1.0) Urinalysis Test 09/28/24 15:44 Urine Color Yellow (Yellow) Urine Clarity Clear (Clear) Urine pH 6.0 (5.0-9.0) Urine Specific [place] 1.017 (1.001-1.035) Urine Protein 1+ (Negative) H Urine Ketones Negative (Negative) Urine Blood Negative /uL (Negative) Urine Nitrite Negative (Negative) Urine Bilirubin Negative (Negative) Urine Urobilinogen Normal mg/dL (Negative) Urine Leukocyte Esterase Negative /uL (Negative) Urine RBC <1 /hpf (0 - 3) Urine Microscopic WBC 1 /HPF (0-3) Urine Squamous Epithelial Cells Few /hpf (<5) Urine Bacteria Few /hpf (None Seen) H Urine Hyaline Casts Few /lpf (0 - 2) Urine Mucus Few (None Seen) Urine Glucose Normal mg/dL (Normal) Microbiology Microbiology Date/Time Source Procedure Growth Status 10/01/24 18:00 Stool Clostridium difficile Toxin Assay - Final Complete 09/23/24 13:15 Blood Blood Culture - Final NO GROWTH AFTER 5 DAYS OF INCUBATION. Complete Imaging: CT abdomen pelvis IMPRESSION Study limited by lack of IV contrast Multiple low-density masses in the liver measuring up to 6.7 cm suspicious for metastatic disease Cholelithiasis without signs of cholecystitis No evidence of bowel obstruction Bladder stone. Enlarged prostate gland Multiple osteo sclerotic and osteolytic bony lesions. Differential diagnosis is bony metastasis versus severe osteoporosis or Paget's disease. These were present on previous exam. Compression fracture at L1 present on old exams Assessment: Diarrhea Dehydration History of colon cancer with Mets to liver on chemotherapy every three weeks Plan: Discussed with Dr. Armas Continue Lomotil and Florastor Add Questran powder DC Mag oxide Recommend stopping vancomycin in view off stool cultures being negative Stool for WBC We will continue to monitor patient Thank you for this consult Date of Service: Oct 02, 2024 Billing Provider: MIKHAIL NAPIER Common Visit Codes: CONSULT ONLY Consultation Codes: [id number] CONSULT <60MIN MIKHAIL NAPIER Oct 02, 2024 15:04
[2024-10-02] MEDS: CHOLESTYRAMINE 4 GM POWDER PO SCH (23:13)
[2024-10-03] VITALS (8 sets, daily range): BP systolic 104–124; BP diastolic 69–87; PULSE 61–82; RESP 14–20; TEMP 96.9–98; O2SAT 94–99
[2024-10-03 06:51] LABS: Anion Gap 14 (5-15); Sodium 144 mmol/L (136-145)
[2024-10-03 06:52] LABS: Hemoglobin 13.0 g/dL (13.5-17.5); Mean Corpuscular Hemoglobin 39.3 pg (28.0-32.0)
[2024-10-03 06:54] LABS: Hematocrit 36.7 % (41.0-53.0); Mean Corpuscular Volume 111.2 fL (80.0-100.0)
[2024-10-03 06:57] LABS: Glucose 101 mg/dL (74-106)
[2024-10-03 06:58] LABS: BUN/Creatinine Ratio 11.5 (10.0-20.0); Blood Urea Nitrogen 12 mg/dL (9-23); Magnesium 1.8 mg/dL (1.6-2.6)
[2024-10-03 07:17] LABS: Calcium 8.2 mg/dL (8.7-10.4); Carbon Dioxide 13 mmol/L (20-31); Chloride 117 mmol/L (98-107)
[2024-10-03 07:19] LABS: Potassium 2.3 mmol/L (3.5-5.1)
[2024-10-03 09:15] LABS: Anisocytosis Moderate; Total Cells Counted 100.0 (100)
--- NOTE | 2024-10-03 09:34 | DVHPN2 ---
Subjective Still has diarrhea K+ and Mg still low Reviewed: Care Plan, H&P, Labs, Medications, Previous Orders, Radiology Changes from previous H/P or p: No Changes Objective Vitals Vital Signs Date Time Temp Pulse Resp B/P (MAP) Pulse Ox O2 Delivery O2 Flow Rate FiO2 10/03/24 04:53 96.9 82 15 124/87 (99) 98 96.9 10/02/24 20:00 Room Air* 0 21 Intake/Output Intake and Output 10/03/24 07:00 Intake Total 950 ml Output Total 2400 ml Balance -1450 ml Intake Oral 950 ml Output Urine Total 400 ml Stool Total 1500 ml Gastric Drainage Total 500 ml General Appearance: Alert, Oriented X3, Cooperative Lungs: Clear to auscultation, Normal air movement Abdomen: Normal bowel sounds, Soft, No tenderness Extremities: No edema Medications Current Medications Medications Dose Ordered Sig/Landon Route Start Time Stop Time Status Last Admin Dose Admin Allopurinol 300 mg DAILY PO 09/24/24 10:00 10/02/24 10:14 300 MG Apixaban 5 mg BID PO 09/23/24 22:00 10/02/24 21:09 5 MG Atorvastatin Calcium 20 mg HS PO 09/23/24 22:00 10/02/24 21:09 20 MG Tamsulosin HCl 0.4 mg QPM PO 09/24/24 18:00 10/02/24 18:16 0.4 MG Acetaminophen/ Hydrocodone Bitart 1 tab Q4HP PRN PO 09/23/24 19:15 09/30/24 00:54 1 TAB Ondansetron HCl 4 mg Q4HP PRN IV 09/23/24 19:15 09/28/24 21:07 4 MG Morphine Sulfate 2 mg Q4HPRN PRN IV 09/23/24 19:15 Sodium Chloride 1,000 ml @ 100 mls/hr Q10H IV 09/24/24 10:00 10/03/24 07:24 100 MLS/HR Acetaminophen 650 mg Q6HP PRN PO 09/24/24 10:15 09/28/24 17:18 650 MG Diphenoxylate HCl/ Atropine 2.5 mg Q6HP PRN PO 09/26/24 09:30 09/30/24 05:48 2.5 MG Saccharomyces Boulardii 250 mg BID PO 09/30/24 10:00 10/02/24 21:09 250 MG Pantoprazole Sodium 40 mg DAILY@0600 PO 10/01/24 06:00 10/03/24 06:59 40 MG Sucralfate 1 gm ACHS PO 09/30/24 22:00 10/03/24 06:58 1 GM Vancomycin HCl 250 mg QID PO 10/01/24 12:00 10/03/24 06:59 250 MG Cholestyramine Resin 4 gm Q12HR@ PO 10/02/24 23:00 10/02/24 23:13 4 GM Magnesium Sulfate/ Dextrose 100 ml @ 100 mls/hr Q1HR IV 10/03/24 10:00 10/03/24 11:59 UNV Laboratory Results Laboratory Tests 10/03/24 05:16 Chemistry Test 10/03/24 05:16 Calcium Level 8.2 mg/dL (8.7-10.4) L Magnesium Level 1.8 mg/dL (1.6-2.6) Urinalysis Test 09/28/24 15:44 Urine Color Yellow (Yellow) Urine Clarity Clear (Clear) Urine pH 6.0 (5.0-9.0) Urine Specific [place] 1.017 (1.001-1.035) Urine Protein 1+ (Negative) H Urine Ketones Negative (Negative) Urine Blood Negative /uL (Negative) Urine Nitrite Negative (Negative) Urine Bilirubin Negative (Negative) Urine Urobilinogen Normal mg/dL (Negative) Urine Leukocyte Esterase Negative /uL (Negative) Urine RBC <1 /hpf (0 - 3) Urine Microscopic WBC 1 /HPF (0-3) Urine Squamous Epithelial Cells Few /hpf (<5) Urine Bacteria Few /hpf (None Seen) H Urine Hyaline Casts Few /lpf (0 - 2) Urine Mucus Few (None Seen) Urine Glucose Normal mg/dL (Normal) Microbiology Microbiology Date/Time Source Procedure Growth Status 10/01/24 18:00 Stool Clostridium difficile Toxin Assay - Final Complete 09/23/24 13:15 Blood Blood Culture - Final NO GROWTH AFTER 5 DAYS OF INCUBATION. 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 Diff Stop Mag / alum IV fluids Replace K+ and Mg Monitor closely 10/01/24: Diarrhea, ? C. Diff: Start Vanco po Repeat C. Diff in progress Hypomagnesemia: Replace Hypokalemia: Replace 10/02/24: Persistent diarrhea: Consult GI PO Vanco Florastor GERD: Protonix and Carafate ANNE-MARIE: IV fluids Hypokalemia: Replace 10/03/24: Diarrhea: Stop Mg Oxide, lomotil, cholesteramine, Florastor Hypokalemia: Replace Hypomagnesemia: Replace ANNE-MARIE: IV fluids GI consult GERD: Protonix and Carafate Afib: Eliquis Plan discussed with: Patient My Orders Orders - AISHWARYA CAMPOS MD Procedure Category Date Status Time * [facility] Receiving Associate CONS 10/02/24 Transmitted 13:47 Regular Diet DIET 10/02/24 Transmitted Dinner Potassium Effervesent PHA 10/03/24 Logged Tab (Klor-Con/Ef) 09:15 Potassium Effervesent PHA 10/03/24 Logged Tab (Klor-Con/Ef) 17:00 Magnesium Sulfate PHA 10/03/24 Logged 1gm/100ml 10:00 Date of Service: Oct 03, 2024 Billing Provider: AISHWARYA CAMPOS MD Common Visit Codes: NOT BILLABLE AISHWARYA CAMPOS MD Oct 03, 2024 09:34
[2024-10-03] MEDS: POTASSIUM EFFERVESENT TAB 25 MEQ PO ONE ×2 (10:29→18:01)
[2024-10-03] MEDS: MAGNESIUM SULFATE 1GM/100ML 100 ML IV SCH (10:29)
--- NOTE | 2024-10-03 16:41 | DVHPN2 ---
Progress Note Date Seen: Oct 03, 2024 Resident Creating Document: KIMBERLEY LEBLANC RESIDENT Has the PT tested + for MRSA If YES, has PT been informed?: No Medical Necessity Reason Pt with a Central, PICC or Fol: No Subjective Review of Systems Patient is a 69-year-old male with a past medical history of colon cancer with hepatic metastases (on chemotherapy every 3 weeks), atrial fibrillation, and prior CVA, admitted with ongoing diarrhea and high-output from colostomy bag (filling in <2 hrs). He reports no abdominal pain, nausea, or vomiting. No fever or chills. Tolerating a regular diet. He was previously diagnosed with C. difficile colitis ~8 weeks ago, but current stool studies including C. diff toxin assay (negative), ova and parasites (negative), stool culture (negative), and Shiga toxin (negative) show no infectious etiology. Currently on probiotics (Florastor), cholestyramine (Questran), Imodium, and Lomotil. Started on Imodium with close monitoring of stool output. Brief Gist of Todays Progress * Diarrhea persists with frequent colostomy output, though infectious workup is negative. * Imaging (CT abdomen/pelvis): Multiple low-density hepatic lesions (largest 6.7 cm, suspicious for metastases), gallstones, bladder stone, enlarged prostate, no bowel obstruction, multiple osteosclerotic/osteolytic lesions consistent with metastatic disease. * Labs: * K 2.3 L (hypokalemia), * Ca 8.2 L, Mg 1.8 low-normal, * Albumin 3.0 L (malnutrition), * Hgb 13.0 L (slightly decreased), * WBC 9.6 (normal), * LFTs mildly elevated: Alk Phos 133 H, AST 42 H. * Blood cultures: No growth. * Currently stable, AAOx3, NAD, tolerating PO intake. Plan today: Continue antidiarrheals and probiotics, adjust electrolytes, discontinue unnecessary antibiotics, continue supportive GI management. Objective vital signs Vital Sign Date Time Temp Pulse Resp B/P (MAP) Pulse Ox O2 Delivery O2 Flow Rate FiO2 10/03/24 12:50 97.5 61 18 122/82 (95) 99 97.5 10/03/24 08:00 Room Air* 0 21 Total Intake and Output 10/02/24 10/02/24 10/03/24 15:00 23:00 07:00 Intake Total 600 ml 350 ml Output Total 1700 ml 700 ml Balance -1100 ml -350 ml medications Current Medications Medications Dose Ordered Sig/Landon Route Start Time Stop Time Status Last Admin Dose Admin Allopurinol 300 mg DAILY PO 09/24/24 10:00 10/03/24 10:30 300 MG Apixaban 5 mg BID PO 09/23/24 22:00 10/03/24 10:30 5 MG Atorvastatin Calcium 20 mg HS PO 09/23/24 22:00 10/02/24 21:09 20 MG Tamsulosin HCl 0.4 mg QPM PO 09/24/24 18:00 10/02/24 18:16 0.4 MG Acetaminophen/ Hydrocodone Bitart 1 tab Q4HP PRN PO 09/23/24 19:15 09/30/24 00:54 1 TAB Ondansetron HCl 4 mg Q4HP PRN IV 09/23/24 19:15 09/28/24 21:07 4 MG Morphine Sulfate 2 mg Q4HPRN PRN IV 09/23/24 19:15 Sodium Chloride 1,000 ml @ 100 mls/hr Q10H IV 09/24/24 10:00 10/03/24 07:24 100 MLS/HR Acetaminophen 650 mg Q6HP PRN PO 09/24/24 10:15 09/28/24 17:18 650 MG Diphenoxylate HCl/ Atropine 2.5 mg Q6HP PRN PO 09/26/24 09:30 10/03/24 10:30 2.5 MG Saccharomyces Boulardii 250 mg BID PO 09/30/24 10:00 10/03/24 10:00 250 MG Pantoprazole Sodium 40 mg DAILY@0600 PO 10/01/24 06:00 10/03/24 06:59 40 MG Sucralfate 1 gm ACHS PO 09/30/24 22:00 10/03/24 11:30 1 GM Vancomycin HCl 250 mg QID PO 10/01/24 12:00 10/03/24 13:19 250 MG Cholestyramine Resin 4 gm Q12HR@11,23 PO 10/02/24 23:00 10/03/24 11:30 4 GM Examination * General: NAD, AAOx3. * Chest: Clear to auscultation. * Cardiac: RRR, no murmurs. * Abdomen: Non-distended, non-tender, positive bowel sounds. Colostomy bag in place with frequent watery output. laboratory and microbiology Laboratory Tests 10/03/24 05:16 Test 10/03/24 05:16 Range/Units Serum Glucose 101 74-106 mg/dL Microbiology Date/Time Source Procedure Growth Status 10/01/24 18:00 Stool Clostridium difficile Toxin Assay - Final Complete 09/23/24 13:15 Blood Blood Culture - Final NO GROWTH AFTER 5 DAYS OF INCUBATION. Complete Problem List/Assessment/Plan Problem List/Assessment/Plan Assessment 1. Diarrhea with high colostomy output Likely chemotherapy-related or functional post-colectomy diarrhea. Infectious causes ruled out (C. diff, parasites, stool culture negative). 2. Gastroenteritis Non-infectious, likely chemotherapy or malabsorption- related. 3. Electrolyte abnormalities Hypokalemia (K 2.3), hypocalcemia, mild hypomagnesemia, hypoalbuminemia due to fluid/electrolyte losses from high-output stoma. 4. Colon cancer with liver and bony metastases On chemotherapy; CT confirmed disease burden. 5. Cholelithiasis without cholecystitis. 6. Bladder stone, enlarged prostate Incidental findings on CT. 7. History of C. diff colitis Ruled out on this admission. Differential diagnosis for diarrhea: * Chemotherapy-induced mucositis vs. post-colectomy high-output diarrhea * Malabsorption (bile salt malabsorption, short bowel syndrome) * Functional diarrhea / secretory diarrhea * Recurrent infection (ruled out) Plan ([facility], GI-Specific) Gastrointestinal: * Continue Imodium and Lomotil scheduled and PRN. * Continue cholestyramine (Questran) to bind bile salts. * Continue Florastor (probiotic). * Monitor colostomy output q4h. * Maintain regular diet as tolerated. Fluids & Electrolytes: * Replace KCl IV and/or PO to correct hypokalemia. * Supplement calcium and magnesium as needed. * Monitor BMP daily. * Continue IV fluids for hydration (e.g., NS with KCl). Plan discussed with: Patient My Orders My Orders Orders - KIMBERLEY LEBLANC RESIDENT Procedure Category Date Status Time Comprehensive LAB 10/04/24 Verified Metabolic Panel 04:00 Loperamide Capsule PHA 10/03/24 Verified (Imodium Capsule) 16:45 Dietary Evaluation Review Comments: 1) Ensure High Protein 240ml TID 2) Continue current POC Expected Outcomes/Goals: To maintain /gain weight GI symptoms to improve Fu 3-5 days KIMBERLEY LEBLANC RESIDENT Oct 03, 2024 16:41
[2024-10-03] MEDS: LOPERAMIDE HCL 2 MG CAP/TAB PO ONE (17:59)
[2024-10-04] VITALS (8 sets, daily range): BP systolic 99–118; BP diastolic 71–82; PULSE 63–77; RESP 16–20; TEMP 96.5–98.3; O2SAT 95–98
[2024-10-04 07:05] LABS: Mean Corpuscular Hemoglobin 39.5 pg (28.0-32.0); Nucleated Red Blood Cells % 0.3 %
[2024-10-04 07:07] LABS: Hematocrit 35.4 % (41.0-53.0); Hemoglobin 12.5 g/dL (13.5-17.5); Mean Corpuscular Volume 111.6 fL (80.0-100.0)
[2024-10-04 07:17] LABS: Alanine Aminotransferase 17 U/L (7-40); Anion Gap 14 (5-15); BUN/Creatinine Ratio 9.0 (10.0-20.0); Bilirubin, Total 0.9 mg/dL (0.2-1.0); Glucose 101 mg/dL (74-106); Magnesium 1.7 mg/dL (1.6-2.6); Sodium 141 mmol/L (136-145)
[2024-10-04 07:29] LABS: Alkaline Phosphatase 137 U/L (46-116); Blood Urea Nitrogen 8 mg/dL (9-23); Calcium 8.1 mg/dL (8.7-10.4); Carbon Dioxide 12 mmol/L (20-31); Chloride 115 mmol/L (98-107)
[2024-10-04 07:30] LABS: Albumin 2.7 g/dL (3.2-4.8); Potassium 2.3 mmol/L (3.5-5.1); Total Protein 4.6 g/dL (5.7-8.2)
[2024-10-04] MEDS: POTASSIUM EFFERVESENT TAB 25 MEQ PO ONE ×3 (10:54→17:53)
[2024-10-04] MEDS: MAGNESIUM SULFATE 1GM/100ML 100 ML IV SCH (10:54)
--- NOTE | 2024-10-04 14:40 | DVHPN2 ---
Progress Note Date Seen: Oct 04, 2024 Resident Creating Document: KIMBERLEY LEBLANC RESIDENT Has the PT tested + for MRSA If YES, has PT been informed?: No Medical Necessity Reason Pt with a Central, PICC or Fol: No Subjective Review of Systems Brief Gist of Todays Progress * Diarrhea improved and stools are less liquidy and more formed and smooth in consistency. * Imaging (CT abdomen/pelvis): Multiple low-density hepatic lesions (largest 6.7 cm, suspicious for metastases), gallstones, bladder stone, enlarged prostate, no bowel obstruction, multiple osteosclerotic/osteolytic lesions consistent with metastatic disease. * Labs: * K 2.3 L (hypokalemia), * Ca 8.2 L, Mg 1.8 low-normal, * Albumin 3.0 L (malnutrition), * Hgb 12.5 L (slightly decreased), * WBC 8.2 (normal), * LFTs normalized: Alk Phos 137 H, * Blood cultures: No growth. * Currently stable, AAOx3, NAD, tolerating PO intake. Plan today: Continue antidiarrheals and probiotics, adjust electrolytes, discontinue unnecessary antibiotics, continue supportive GI management. Patient will need outpatient GI follow-up with Dr. Armas for colonoscopy to be scheduled for December. And to further evaluate patient. Objective vital signs Vital Sign Date Time Temp Pulse Resp B/P (MAP) Pulse Ox O2 Delivery O2 Flow Rate FiO2 10/04/24 09:00 97.4 77 16 111/78 (89) 98 97.4 10/04/24 08:00 Room Air* 0 21 Total Intake and Output 10/03/24 10/03/24 10/04/24 14:59 22:59 06:59 Intake Total 1300 ml 2100 ml 800 ml Output Total 500 ml 2950 ml 1050 ml Balance 800 ml -850 ml -250 ml medications Current Medications Medications Dose Ordered Sig/Landon Route Start Time Stop Time Status Last Admin Dose Admin Allopurinol 300 mg DAILY PO 09/24/24 10:00 10/04/24 09:20 300 MG Apixaban 5 mg BID PO 09/23/24 22:00 10/04/24 09:20 5 MG Atorvastatin Calcium 20 mg HS PO 09/23/24 22:00 10/03/24 23:21 20 MG Tamsulosin HCl 0.4 mg QPM PO 09/24/24 18:00 10/03/24 18:00 0.4 MG Acetaminophen/ Hydrocodone Bitart 1 tab Q4HP PRN PO 09/23/24 19:15 09/30/24 00:54 1 TAB Ondansetron HCl 4 mg Q4HP PRN IV 09/23/24 19:15 09/28/24 21:07 4 MG Morphine Sulfate 2 mg Q4HPRN PRN IV 09/23/24 19:15 Sodium Chloride 1,000 ml @ 100 mls/hr Q10H IV 09/24/24 10:00 10/04/24 10:00 100 MLS/HR Acetaminophen 650 mg Q6HP PRN PO 09/24/24 10:15 09/28/24 17:18 650 MG Diphenoxylate HCl/ Atropine 2.5 mg Q6HP PRN PO 09/26/24 09:30 10/03/24 10:30 2.5 MG Saccharomyces Boulardii 250 mg BID PO 09/30/24 10:00 10/04/24 09:21 250 MG Pantoprazole Sodium 40 mg DAILY@0600 PO 10/01/24 06:00 10/04/24 06:49 40 MG Sucralfate 1 gm ACHS PO 09/30/24 22:00 10/04/24 10:53 1 GM Vancomycin HCl 250 mg QID PO 10/01/24 12:00 10/04/24 11:04 250 MG Cholestyramine Resin 4 gm Q12HR@11,23 PO 10/02/24 23:00 10/04/24 10:54 4 GM Examination General: NAD, AAOx3. * Chest: Clear to auscultation. * Cardiac: RRR, no murmurs. * Abdomen: Non-distended, non-tender, positive bowel sounds. Colostomy bag in place laboratory and microbiology Laboratory Tests 10/04/24 05:57 Test 10/04/24 05:57 Range/Units Serum Glucose 101 74-106 mg/dL Microbiology Date/Time Source Procedure Growth Status 10/01/24 18:00 Stool Clostridium difficile Toxin Assay - Final Complete 09/23/24 13:15 Blood Blood Culture - Final NO GROWTH AFTER 5 DAYS OF INCUBATION. Complete Problem List/Assessment/Plan Problem List/Assessment/Plan Assessment 1. Diarrhea with high colostomy output Likely chemotherapy-related or functional post-colectomy diarrhea. Infectious causes ruled out (C. diff, parasites, stool culture negative). 2. Gastroenteritis Non-infectious, likely chemotherapy or malabsorption- related. 3. Electrolyte abnormalities Hypokalemia (K 2.3), hypocalcemia, mild hypomagnesemia, hypoalbuminemia due to fluid/electrolyte losses from high-output stoma. 4. Colon cancer with liver and bony metastases On chemotherapy; CT confirmed disease burden. 5. Cholelithiasis without cholecystitis. 6. Bladder stone, enlarged prostate Incidental findings on CT. 7. History of C. diff colitis Ruled out on this admission. Differential diagnosis for diarrhea: * Chemotherapy-induced mucositis vs. post-colectomy high-output diarrhea * Malabsorption (bile salt malabsorption, short bowel syndrome) * Functional diarrhea / secretory diarrhea * Recurrent infection (ruled out) Plan ([facility], GI-Specific) Gastrointestinal: * Continue Imodium and Lomotil scheduled and PRN. * Continue cholestyramine (Questran) to bind bile salts. * Continue Florastor (probiotic). * Monitor colostomy output q4h. * Maintain regular diet as tolerated. Fluids & Electrolytes: * Replace KCl IV and/or PO to correct hypokalemia. * Supplement calcium and magnesium as needed. * Monitor BMP daily. * Continue IV fluids for hydration (e.g., NS with KCl). Patient will need outpatient GI follow-up appointment with a Dr. Armas. Patient requires a colonoscopy. Colonoscopy to be scheduled in December. Plan discussed with: Patient Dietary Evaluation Review Comments: 1) Ensure High Protein 240ml TID 2) Continue current POC Expected Outcomes/Goals: To maintain /gain weight GI symptoms to improve Fu 3-5 days KIMBERLEY LEBLANC RESIDENT Oct 04, 2024 14:40
--- NOTE | 2024-10-04 16:17 | DVHPN2 ---
Subjective Diarrhea is better K+ is still low Reviewed: Care Plan, H&P, Labs, Medications, Previous Orders, Radiology Changes from previous H/P or p: Changes Objective Vitals Vital Signs Date Time Temp Pulse Resp B/P (MAP) Pulse Ox O2 Delivery O2 Flow Rate FiO2 10/04/24 13:00 96.5 63 18 112/76 (88) 98 96.5 10/04/24 08:00 Room Air* 0 21 Intake/Output Intake and Output 10/04/24 07:00 Intake Total 4200 ml Output Total 4500 ml Balance -300 ml Intake Oral 2200 ml IV Total 2000 ml Output Urine Total 950 ml Stool Total 3550 ml # Voids 3 General Appearance: Alert, Oriented X3, Cooperative Lungs: Clear to auscultation, Normal air movement Abdomen: Normal bowel sounds, Soft, No tenderness Extremities: No edema Medications Current Medications Medications Dose Ordered Sig/Landon Route Start Time Stop Time Status Last Admin Dose Admin Allopurinol 300 mg DAILY PO 09/24/24 10:00 10/04/24 09:20 300 MG Apixaban 5 mg BID PO 09/23/24 22:00 10/04/24 09:20 5 MG Atorvastatin Calcium 20 mg HS PO 09/23/24 22:00 10/03/24 23:21 20 MG Tamsulosin HCl 0.4 mg QPM PO 09/24/24 18:00 10/03/24 18:00 0.4 MG Acetaminophen/ Hydrocodone Bitart 1 tab Q4HP PRN PO 09/23/24 19:15 09/30/24 00:54 1 TAB Ondansetron HCl 4 mg Q4HP PRN IV 09/23/24 19:15 09/28/24 21:07 4 MG Morphine Sulfate 2 mg Q4HPRN PRN IV 09/23/24 19:15 Sodium Chloride 1,000 ml @ 100 mls/hr Q10H IV 09/24/24 10:00 10/04/24 10:00 100 MLS/HR Acetaminophen 650 mg Q6HP PRN PO 09/24/24 10:15 09/28/24 17:18 650 MG Diphenoxylate HCl/ Atropine 2.5 mg Q6HP PRN PO 09/26/24 09:30 10/03/24 10:30 2.5 MG Saccharomyces Boulardii 250 mg BID PO 09/30/24 10:00 10/04/24 09:21 250 MG Pantoprazole Sodium 40 mg DAILY@0600 PO 10/01/24 06:00 10/04/24 06:49 40 MG Sucralfate 1 gm ACHS PO 09/30/24 22:00 10/04/24 10:53 1 GM Vancomycin HCl 250 mg QID PO 10/01/24 12:00 10/04/24 11:04 250 MG Cholestyramine Resin 4 gm Q12HR@ PO 10/02/24 23:00 10/04/24 10:54 4 GM Laboratory Results Laboratory Tests 10/04/24 05:57 Chemistry Test 10/04/24 05:57 Albumin 2.7 g/dL (3.2-4.8) L Calcium Level 8.1 mg/dL (8.7-10.4) L Magnesium Level 1.7 mg/dL (1.6-2.6) Total Protein 4.6 g/dL (5.7-8.2) L LFT Test 10/04/24 05:57 Alanine Aminotransferase (ALT) 17 U/L (7-40) Alkaline Phosphatase 137 U/L (46-116) H Aspartate Amino Transferase (AST) 33 U/L (13-40) Total Bilirubin 0.9 mg/dL (0.2-1.0) Urinalysis Test 09/28/24 15:44 Urine Color Yellow (Yellow) Urine Clarity Clear (Clear) Urine pH 6.0 (5.0-9.0) Urine Specific [place] 1.017 (1.001-1.035) Urine Protein 1+ (Negative) H Urine Ketones Negative (Negative) Urine Blood Negative /uL (Negative) Urine Nitrite Negative (Negative) Urine Bilirubin Negative (Negative) Urine Urobilinogen Normal mg/dL (Negative) Urine Leukocyte Esterase Negative /uL (Negative) Urine RBC <1 /hpf (0 - 3) Urine Microscopic WBC 1 /HPF (0-3) Urine Squamous Epithelial Cells Few /hpf (<5) Urine Bacteria Few /hpf (None Seen) H Urine Hyaline Casts Few /lpf (0 - 2) Urine Mucus Few (None Seen) Urine Glucose Normal mg/dL (Normal) Microbiology Microbiology Date/Time Source Procedure Growth Status 10/01/24 18:00 Stool Clostridium difficile Toxin Assay - Final Complete 09/23/24 13:15 Blood Blood Culture - Final NO GROWTH AFTER 5 DAYS OF INCUBATION. 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 Diff Stop Mag / alum IV fluids Replace K+ and Mg Monitor closely 10/01/24: Diarrhea, ? C. Diff: Start Vanco po Repeat C. Diff in progress Hypomagnesemia: Replace Hypokalemia: Replace 10/02/24: Persistent diarrhea: Consult GI PO Vanco Florastor GERD: Protonix and Carafate ANNE-MARIE: IV fluids Hypokalemia: Replace 10/03/24: Diarrhea: Stop Mg Oxide, lomotil, cholesteramine, Florastor Hypokalemia: Replace Hypomagnesemia: Replace ANNE-MARIE: IV fluids GI consult GERD: Protonix and Carafate Afib: Eliquis 10/04/24: Diarrhea is better Replace K+ and Mg IV fluids Regular diet Plan discussed with: Patient My Orders Orders - AISHWARYA CAMPOS MD Procedure Category Date Status Time Potassium Effervesent PHA 10/04/24 In Process Tab (Klor-Con/Ef) 18:00 Complete Blood Count LAB 10/05/24 Verified 04:00 Comprehensive LAB 10/05/24 Verified Metabolic Panel 04:00 Magnesium LAB 10/05/24 Verified 04:00 Date of Service: Oct 04, 2024 Billing Provider: AISHWARYA CAMPOS MD Common Visit Codes: NOT BILLABLE AISHWARYA CAMPOS MD Oct 04, 2024 16:17
[2024-10-05] VITALS (8 sets, daily range): BP systolic 107–150; BP diastolic 68–92; PULSE 16–75; RESP 16–18; TEMP 98–99.1; O2SAT 97–100
[2024-10-05 07:57] LABS: Hematocrit 33.8 % (41.0-53.0); Hemoglobin 12.1 g/dL (13.5-17.5); Mean Corpuscular Hemoglobin 39.2 pg (28.0-32.0); Mean Corpuscular Volume 109.1 fL (80.0-100.0); Nucleated Red Blood Cells % 0.2 %
[2024-10-05 08:16] LABS: Alanine Aminotransferase 20 U/L (7-40); Anion Gap 13 (5-15); BUN/Creatinine Ratio 10.3 (10.0-20.0); Bilirubin, Total 0.9 mg/dL (0.2-1.0); Glucose 99 mg/dL (74-106); Sodium 139 mmol/L (136-145)
[2024-10-05 08:35] LABS: Albumin 2.7 g/dL (3.2-4.8); Alkaline Phosphatase 146 U/L (46-116); Blood Urea Nitrogen 8 mg/dL (9-23); Calcium 8.1 mg/dL (8.7-10.4); Carbon Dioxide 15 mmol/L (20-31); Chloride 111 mmol/L (98-107); Magnesium 1.6 mg/dL (1.6-2.6); Potassium 2.6 mmol/L (3.5-5.1); Total Protein 4.6 g/dL (5.7-8.2)
[2024-10-05] MEDS: POTASSIUM EFFERVESENT TAB 25 MEQ PO ONE (11:59)
[2024-10-05] MEDS: MAGNESIUM SULFATE 1GM/100ML 100 ML IV SCH (12:01)
--- NOTE | 2024-10-05 12:06 | DVHPN2 ---
Subjective Diarrhea is better K+ is still low Reviewed: Care Plan, H&P, Labs, Medications, Previous Orders, Radiology Changes from previous H/P or p: Changes Objective Vitals Vital Signs Date Time Temp Pulse Resp B/P (MAP) Pulse Ox O2 Delivery O2 Flow Rate FiO2 10/05/24 08:00 98.0 63 18 127/83 (98) 99 98.0 10/05/24 07:47 Room Air* 0 21 Intake/Output Intake and Output 10/05/24 07:00 Intake Total 990 ml Output Total 1275 ml Balance -285 ml Intake Oral 990 ml Output Urine Total 650 ml Stool Total 625 ml General Appearance: Alert, Oriented X3, Cooperative Lungs: Clear to auscultation, Normal air movement Abdomen: Normal bowel sounds, Soft, No tenderness Extremities: No edema Medications Current Medications Medications Dose Ordered Sig/Landon Route Start Time Stop Time Status Last Admin Dose Admin Allopurinol 300 mg DAILY PO 09/24/24 10:00 10/05/24 12:00 300 MG Apixaban 5 mg BID PO 09/23/24 22:00 10/05/24 12:00 5 MG Atorvastatin Calcium 20 mg HS PO 09/23/24 22:00 10/04/24 22:15 20 MG Tamsulosin HCl 0.4 mg QPM PO 09/24/24 18:00 10/04/24 17:54 0.4 MG Acetaminophen/ Hydrocodone Bitart 1 tab Q4HP PRN PO 09/23/24 19:15 09/30/24 00:54 1 TAB Ondansetron HCl 4 mg Q4HP PRN IV 09/23/24 19:15 09/28/24 21:07 4 MG Morphine Sulfate 2 mg Q4HPRN PRN IV 09/23/24 19:15 Sodium Chloride 1,000 ml @ 100 mls/hr Q10H IV 09/24/24 10:00 10/04/24 10:00 100 MLS/HR Acetaminophen 650 mg Q6HP PRN PO 09/24/24 10:15 09/28/24 17:18 650 MG Diphenoxylate HCl/ Atropine 2.5 mg Q6HP PRN PO 09/26/24 09:30 10/03/24 10:30 2.5 MG Saccharomyces Boulardii 250 mg BID PO 09/30/24 10:00 10/05/24 12:02 250 MG Pantoprazole Sodium 40 mg DAILY@0600 PO 10/01/24 06:00 10/05/24 05:29 40 MG Sucralfate 1 gm ACHS PO 09/30/24 22:00 10/05/24 12:00 1 GM Vancomycin HCl 250 mg QID PO 10/01/24 12:00 10/05/24 12:00 250 MG Cholestyramine Resin 4 gm Q12HR@ PO 10/02/24 23:00 10/05/24 12:00 4 GM Potassium Bicarbonate 50 meq BID PO 10/05/24 22:00 Magnesium Sulfate/ Dextrose 100 ml @ 100 mls/hr Q1HR IV 10/05/24 11:00 10/05/24 12:59 10/05/24 12:01 100 MLS/HR Laboratory Results Laboratory Tests 10/05/24 07:05 Chemistry Test 10/05/24 07:05 Albumin 2.7 g/dL (3.2-4.8) L Calcium Level 8.1 mg/dL (8.7-10.4) L Magnesium Level 1.6 mg/dL (1.6-2.6) Total Protein 4.6 g/dL (5.7-8.2) L LFT Test 10/05/24 07:05 Alanine Aminotransferase (ALT) 20 U/L (7-40) Alkaline Phosphatase 146 U/L (46-116) H Aspartate Amino Transferase (AST) 38 U/L (13-40) Total Bilirubin 0.9 mg/dL (0.2-1.0) Urinalysis Test 09/28/24 15:44 Urine Color Yellow (Yellow) Urine Clarity Clear (Clear) Urine pH 6.0 (5.0-9.0) Urine Specific [place] 1.017 (1.001-1.035) Urine Protein 1+ (Negative) H Urine Ketones Negative (Negative) Urine Blood Negative /uL (Negative) Urine Nitrite Negative (Negative) Urine Bilirubin Negative (Negative) Urine Urobilinogen Normal mg/dL (Negative) Urine Leukocyte Esterase Negative /uL (Negative) Urine RBC <1 /hpf (0 - 3) Urine Microscopic WBC 1 /HPF (0-3) Urine Squamous Epithelial Cells Few /hpf (<5) Urine Bacteria Few /hpf (None Seen) H Urine Hyaline Casts Few /lpf (0 - 2) Urine Mucus Few (None Seen) Urine Glucose Normal mg/dL (Normal) Microbiology Microbiology Date/Time Source Procedure Growth Status 10/01/24 18:00 Stool Clostridium difficile Toxin Assay - Final Complete 09/23/24 13:15 Blood Blood Culture - Final NO GROWTH AFTER 5 DAYS OF INCUBATION. 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 Diff Stop Mag / alum IV fluids Replace K+ and Mg Monitor closely 10/01/24: Diarrhea, ? C. Diff: Start Vanco po Repeat C. Diff in progress Hypomagnesemia: Replace Hypokalemia: Replace 10/02/24: Persistent diarrhea: Consult GI PO Vanco Florastor GERD: Protonix and Carafate ANNE-MARIE: IV fluids Hypokalemia: Replace 10/03/24: Diarrhea: Stop Mg Oxide, lomotil, cholesteramine, Florastor Hypokalemia: Replace Hypomagnesemia: Replace ANNE-MARIE: IV fluids GI consult GERD: Protonix and Carafate Afib: Eliquis 10/04/24: Diarrhea is better Replace K+ and Mg IV fluids Regular diet 10/05/2024: Diarrhea is better Hypokalemia: Replace potassium and magnesium as needed Continue IV fluids Regular diet Generalized weakness: Physical therapy evaluation Plan discussed with: Patient My Orders Orders - AISHWARYA CAMPOS MD Procedure Category Date Status Time Potassium Effervesent PHA 10/05/24 In Process Tab (Klor-Con/Ef) 22:00 Magnesium Sulfate PHA 10/05/24 In Process 1gm/100ml 11:00 Basic Metabolic Panel LAB 10/06/24 Verified 04:00 Magnesium LAB 10/06/24 Verified 04:00 Date of Service: Oct 05, 2024 Billing Provider: AISHWARYA CAMPOS MD Common Visit Codes: NOT BILLABLE AISHWARYA CAMPOS MD Oct 05, 2024 12:06
[2024-10-05] MEDS: POTASSIUM EFFERVESENT TAB 25 MEQ PO SCH (21:20)
[2024-10-06] VITALS (8 sets, daily range): BP systolic 102–117; BP diastolic 64–81; PULSE 66–79; RESP 16–18; TEMP 97.8–99.1; O2SAT 96–99
[2024-10-06 05:58] LABS: Sodium 139 mmol/L (136-145)
[2024-10-06 05:59] LABS: Anion Gap 10 (5-15); Calcium 7.8 mg/dL (8.7-10.4); Carbon Dioxide 19 mmol/L (20-31); Chloride 110 mmol/L (98-107); Potassium 2.7 mmol/L (3.5-5.1)
[2024-10-06 06:04] LABS: BUN/Creatinine Ratio 7.7 (10.0-20.0); Blood Urea Nitrogen 6 mg/dL (9-23); Glucose 90 mg/dL (74-106)
[2024-10-06 06:05] LABS: Magnesium 1.7 mg/dL (1.6-2.6)
--- NOTE | 2024-10-06 09:27 | DVHPN2 ---
Subjective Diarrhea is better K+ is still low 2.7 Reviewed: Care Plan, H&P, Labs, Medications, Previous Orders, Radiology Changes from previous H/P or p: Changes Objective Vitals Vital Signs Date Time Temp Pulse Resp B/P (MAP) Pulse Ox O2 Delivery O2 Flow Rate FiO2 10/06/24 08:56 98.2 68 18 106/64 (78) 96 98.2 10/06/24 08:09 Room Air* 0 21 Intake/Output Intake and Output 10/06/24 07:00 Intake Total 2800 ml Output Total 1200 ml Balance 1600 ml Intake Oral 2800 ml Output Urine Total 900 ml Stool Total 300 ml General Appearance: Alert, Oriented X3, Cooperative Lungs: Clear to auscultation, Normal air movement Abdomen: Normal bowel sounds, Soft, No tenderness Extremities: No edema Medications Current Medications Medications Dose Ordered Sig/Landon Route Start Time Stop Time Status Last Admin Dose Admin Allopurinol 300 mg DAILY PO 09/24/24 10:00 10/05/24 12:00 300 MG Apixaban 5 mg BID PO 09/23/24 22:00 10/05/24 21:17 5 MG Atorvastatin Calcium 20 mg HS PO 09/23/24 22:00 10/05/24 21:18 20 MG Tamsulosin HCl 0.4 mg QPM PO 09/24/24 18:00 10/05/24 18:29 0.4 MG Acetaminophen/ Hydrocodone Bitart 1 tab Q4HP PRN PO 09/23/24 19:15 09/30/24 00:54 1 TAB Ondansetron HCl 4 mg Q4HP PRN IV 09/23/24 19:15 09/28/24 21:07 4 MG Morphine Sulfate 2 mg Q4HPRN PRN IV 09/23/24 19:15 Sodium Chloride 1,000 ml @ 100 mls/hr Q10H IV 09/24/24 10:00 10/06/24 01:04 100 MLS/HR Acetaminophen 650 mg Q6HP PRN PO 09/24/24 10:15 09/28/24 17:18 650 MG Diphenoxylate HCl/ Atropine 2.5 mg Q6HP PRN PO 09/26/24 09:30 10/03/24 10:30 2.5 MG Saccharomyces Boulardii 250 mg BID PO 09/30/24 10:00 10/05/24 21:22 250 MG Pantoprazole Sodium 40 mg DAILY@0600 PO 10/01/24 06:00 10/06/24 05:27 40 MG Sucralfate 1 gm ACHS PO 09/30/24 22:00 10/06/24 05:27 1 GM Vancomycin HCl 250 mg QID PO 10/01/24 12:00 10/06/24 05:27 250 MG Cholestyramine Resin 4 gm Q12HR@ PO 10/02/24 23:00 10/05/24 21:27 4 GM Potassium Bicarbonate 50 meq BID PO 10/05/24 22:00 10/05/24 21:20 50 MEQ Laboratory Results Laboratory Tests 10/05/24 07:05 10/06/24 05:29 Chemistry Test 10/06/24 05:29 Calcium Level 7.8 mg/dL (8.7-10.4) L Magnesium Level 1.7 mg/dL (1.6-2.6) Urinalysis Test 09/28/24 15:44 Urine Color Yellow (Yellow) Urine Clarity Clear (Clear) Urine pH 6.0 (5.0-9.0) Urine Specific [place] 1.017 (1.001-1.035) Urine Protein 1+ (Negative) H Urine Ketones Negative (Negative) Urine Blood Negative /uL (Negative) Urine Nitrite Negative (Negative) Urine Bilirubin Negative (Negative) Urine Urobilinogen Normal mg/dL (Negative) Urine Leukocyte Esterase Negative /uL (Negative) Urine RBC <1 /hpf (0 - 3) Urine Microscopic WBC 1 /HPF (0-3) Urine Squamous Epithelial Cells Few /hpf (<5) Urine Bacteria Few /hpf (None Seen) H Urine Hyaline Casts Few /lpf (0 - 2) Urine Mucus Few (None Seen) Urine Glucose Normal mg/dL (Normal) Microbiology Microbiology Date/Time Source Procedure Growth Status 10/01/24 18:00 Stool Clostridium difficile Toxin Assay - Final Complete 09/23/24 13:15 Blood Blood Culture - Final NO GROWTH AFTER 5 DAYS OF INCUBATION. 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 Diff Stop Mag / alum IV fluids Replace K+ and Mg Monitor closely 10/01/24: Diarrhea, ? C. Diff: Start Vanco po Repeat C. Diff in progress Hypomagnesemia: Replace Hypokalemia: Replace 10/02/24: Persistent diarrhea: Consult GI PO Vanco Florastor GERD: Protonix and Carafate ANNE-MARIE: IV fluids Hypokalemia: Replace 10/03/24: Diarrhea: Stop Mg Oxide, lomotil, cholesteramine, Florastor Hypokalemia: Replace Hypomagnesemia: Replace ANNE-MARIE: IV fluids GI consult GERD: Protonix and Carafate Afib: Eliquis 10/04/24: Diarrhea is better Replace K+ and Mg IV fluids Regular diet 10/05/2024: Diarrhea is better Hypokalemia: Replace potassium and magnesium as needed Continue IV fluids Regular diet Generalized weakness: Physical therapy evaluation 10/06/24: Replace K+ and Mg IV fluids Regular diet Monitor Plan discussed with: Patient My Orders Orders - AISHWARYA CAMPOS MD Procedure Category Date Status Time Potassium Effervesent PHA 10/05/24 In Process Tab (Klor-Con/Ef) 22:00 Pt Request For Service PT 10/05/24 Logged 12:04 Magnesium Tato PHA 10/06/24 Transmitted 10:00 Basic Metabolic Panel LAB 10/07/24 Verified 04:00 Magnesium LAB 10/07/24 Verified 04:00 Date of Service: Oct 06, 2024 Billing Provider: AISHWARYA CAMPOS MD Common Visit Codes: NOT BILLABLE AISHWARYA CAMPOS MD Oct 06, 2024 09:27
[2024-10-06] MEDS: MAGNESIUM SULFATE 1GM/100ML 100 ML IV SCH (11:08)
[2024-10-07] VITALS (7 sets, daily range): BP systolic 104–116; BP diastolic 63–79; PULSE 63–73; RESP 16–18; TEMP 97.8–98.7; O2SAT 97–99
[2024-10-07 06:36] LABS: Sodium 138 mmol/L (136-145)
[2024-10-07 06:37] LABS: Anion Gap 10 (5-15)
[2024-10-07 06:39] LABS: Calcium 7.6 mg/dL (8.7-10.4); Carbon Dioxide 20 mmol/L (20-31); Chloride 108 mmol/L (98-107); Potassium 3.1 mmol/L (3.5-5.1)
[2024-10-07 06:42] LABS: BUN/Creatinine Ratio 7.8 (10.0-20.0); Glucose 96 mg/dL (74-106); Magnesium 1.6 mg/dL (1.6-2.6)
[2024-10-07 06:43] LABS: Blood Urea Nitrogen 6 mg/dL (9-23)
--- NOTE | 2024-10-07 10:54 | DVHPN2 ---
Subjective He is doing better Potassium is better Reviewed: Care Plan, H&P, Labs, Medications, Previous Orders, Radiology Changes from previous H/P or p: Changes Objective Vitals Vital Signs Date Time Temp Pulse Resp B/P (MAP) Pulse Ox O2 Delivery O2 Flow Rate FiO2 10/07/24 08:40 98.4 63 18 110/ 97 98.4 10/06/24 20:00 Room Air* 0 21 Intake/Output Intake and Output 10/07/24 07:00 Intake Total 3515 ml Output Total 2950 ml Balance 565 ml Intake Oral 3515 ml Output Urine Total 1550 ml Stool Total 1100 ml Urine/Stool Mix 300 ml # Voids 5 # Bowel Movements 3 General Appearance: Alert, Oriented X3, Cooperative Lungs: Clear to auscultation, Normal air movement Abdomen: Normal bowel sounds, Soft, No tenderness Extremities: No edema Medications Current Medications Medications Dose Ordered Sig/Landon Route Start Time Stop Time Status Last Admin Dose Admin Allopurinol 300 mg DAILY PO 09/24/24 10:00 10/06/24 11:06 300 MG Apixaban 5 mg BID PO 09/23/24 22:00 10/06/24 21:24 5 MG Atorvastatin Calcium 20 mg HS PO 09/23/24 22:00 10/06/24 21:24 20 MG Tamsulosin HCl 0.4 mg QPM PO 09/24/24 18:00 10/06/24 17:45 0.4 MG Acetaminophen/ Hydrocodone Bitart 1 tab Q4HP PRN PO 09/23/24 19:15 09/30/24 00:54 1 TAB Ondansetron HCl 4 mg Q4HP PRN IV 09/23/24 19:15 09/28/24 21:07 4 MG Morphine Sulfate 2 mg Q4HPRN PRN IV 09/23/24 19:15 Sodium Chloride 1,000 ml @ 100 mls/hr Q10H IV 09/24/24 10:00 10/07/24 07:00 100 MLS/HR Acetaminophen 650 mg Q6HP PRN PO 09/24/24 10:15 09/28/24 17:18 650 MG Diphenoxylate HCl/ Atropine 2.5 mg Q6HP PRN PO 09/26/24 09:30 10/03/24 10:30 2.5 MG Saccharomyces Boulardii 250 mg BID PO 09/30/24 10:00 10/06/24 21:23 250 MG Pantoprazole Sodium 40 mg DAILY@0600 PO 10/01/24 06:00 10/07/24 05:31 40 MG Sucralfate 1 gm ACHS PO 09/30/24 22:00 10/07/24 05:31 1 GM Vancomycin HCl 250 mg QID PO 10/01/24 12:00 10/07/24 05:31 250 MG Cholestyramine Resin 4 gm Q12HR@ PO 10/02/24 23:00 10/06/24 21:36 4 GM Potassium Bicarbonate 50 meq BID PO 10/05/24 22:00 10/06/24 21:22 50 MEQ Magnesium Sulfate/ Dextrose 100 ml @ 100 mls/hr Q1HR IV 10/07/24 09:00 10/07/24 10:59 Laboratory Results Laboratory Tests 10/05/24 07:05 10/07/24 05:28 Chemistry Test 10/07/24 05:28 Calcium Level 7.6 mg/dL (8.7-10.4) L Magnesium Level 1.6 mg/dL (1.6-2.6) Urinalysis Test 09/28/24 15:44 Urine Color Yellow (Yellow) Urine Clarity Clear (Clear) Urine pH 6.0 (5.0-9.0) Urine Specific [place] 1.017 (1.001-1.035) Urine Protein 1+ (Negative) H Urine Ketones Negative (Negative) Urine Blood Negative /uL (Negative) Urine Nitrite Negative (Negative) Urine Bilirubin Negative (Negative) Urine Urobilinogen Normal mg/dL (Negative) Urine Leukocyte Esterase Negative /uL (Negative) Urine RBC <1 /hpf (0 - 3) Urine Microscopic WBC 1 /HPF (0-3) Urine Squamous Epithelial Cells Few /hpf (<5) Urine Bacteria Few /hpf (None Seen) H Urine Hyaline Casts Few /lpf (0 - 2) Urine Mucus Few (None Seen) Urine Glucose Normal mg/dL (Normal) Microbiology Microbiology Date/Time Source Procedure Growth Status 10/01/24 18:00 Stool Clostridium difficile Toxin Assay - Final Complete 09/23/24 13:15 Blood Blood Culture - Final NO GROWTH AFTER 5 DAYS OF INCUBATION. 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 Diff Stop Mag / alum IV fluids Replace K+ and Mg Monitor closely 10/01/24: Diarrhea, ? C. Diff: Start Vanco po Repeat C. Diff in progress Hypomagnesemia: Replace Hypokalemia: Replace 10/02/24: Persistent diarrhea: Consult GI PO Vanco Florastor GERD: Protonix and Carafate ANNE-MARIE: IV fluids Hypokalemia: Replace 10/03/24: Diarrhea: Stop Mg Oxide, lomotil, cholesteramine, Florastor Hypokalemia: Replace Hypomagnesemia: Replace ANNE-MARIE: IV fluids GI consult GERD: Protonix and Carafate Afib: Eliquis 10/04/24: Diarrhea is better Replace K+ and Mg IV fluids Regular diet 10/05/2024: Diarrhea is better Hypokalemia: Replace potassium and magnesium as needed Continue IV fluids Regular diet Generalized weakness: Physical therapy evaluation 10/06/24: Replace K+ and Mg IV fluids Regular diet Monitor 10/07/2024: Continue the current management Discontinue the IV fluids Replace potassium and magnesium Plan discussed with: Patient My Orders Orders - AISHWARYA CAMPOS MD Procedure Category Date Status Time Magnesium Sulfate PHA 10/07/24 In Process 1gm/100ml 09:00 Date of Service: Oct 07, 2024 Billing Provider: AISHWARYA CAMPOS MD Common Visit Codes: NOT BILLABLE AISHWARYA CAMPOS MD Oct 07, 2024 10:54
[2024-10-07] MEDS: MAGNESIUM SULFATE 1GM/100ML 100 ML IV SCH (10:58)
--- NOTE | 2024-10-07 20:10 | DVHPN2 ---
Progress Note - Dictate Date Seen: Oct 07, 2024 Has the PT tested + for MRSA If YES, has PT been informed?: No Medical Necessity Reason Pt with a Central, PICC or Fol: No Subjective No new complaints ; feels much better Stool is more formed in the colostomy Repeat stool for C diff is negative Stool tests were negative for ova and parasites vital signs Vital Sign Date Time Temp Pulse Resp B/P (MAP) Pulse Ox O2 Delivery O2 Flow Rate FiO2 10/07/24 17:07 98.2 64 18 115/76 (89) 97 98.2 10/07/24 08:00 Room Air* 0 21 Total Intake and Output 10/06/24 10/06/24 10/07/24 15:00 23:00 07:00 Intake Total 860 ml 1655 ml 1000 ml Output Total 900 ml 600 ml 1450 ml Balance -40 ml 1055 ml -450 ml medications Current Medications Medications Dose Ordered Sig/Landon Route Start Time Stop Time Status Last Admin Dose Admin Allopurinol 300 mg DAILY PO 09/24/24 10:00 10/07/24 10:57 300 MG Apixaban 5 mg BID PO 09/23/24 22:00 10/07/24 10:57 5 MG Atorvastatin Calcium 20 mg HS PO 09/23/24 22:00 10/06/24 21:24 20 MG Tamsulosin HCl 0.4 mg QPM PO 09/24/24 18:00 10/07/24 17:17 0.4 MG Acetaminophen/ Hydrocodone Bitart 1 tab Q4HP PRN PO 09/23/24 19:15 09/30/24 00:54 1 TAB Ondansetron HCl 4 mg Q4HP PRN IV 09/23/24 19:15 09/28/24 21:07 4 MG Morphine Sulfate 2 mg Q4HPRN PRN IV 09/23/24 19:15 Acetaminophen 650 mg Q6HP PRN PO 09/24/24 10:15 09/28/24 17:18 650 MG Diphenoxylate HCl/ Atropine 2.5 mg Q6HP PRN PO 09/26/24 09:30 10/03/24 10:30 2.5 MG Saccharomyces Boulardii 250 mg BID PO 09/30/24 10:00 10/07/24 10:00 250 MG Pantoprazole Sodium 40 mg DAILY@0600 PO 10/01/24 06:00 10/07/24 05:31 40 MG Sucralfate 1 gm ACHS PO 09/30/24 22:00 10/07/24 17:16 1 GM Vancomycin HCl 250 mg QID PO 10/01/24 12:00 10/07/24 17:17 250 MG Cholestyramine Resin 4 gm Q12HR@11,23 PO 10/02/24 23:00 10/07/24 10:55 4 GM Potassium Bicarbonate 50 meq BID PO 10/05/24 22:00 10/07/24 10:54 50 MEQ objective General Appearance: Alert, Oriented X3, Cooperative Lungs: Clear to auscultation, Normal air movement Abdomen: Normal bowel sounds, Soft, No tenderness; left-sided colostomy functional Extremities: No edema laboratory and microbiology Laboratory Tests 10/07/24 05:28 10/05/24 07:05 Test 10/07/24 05:28 Range/Units Serum Glucose 96 74-106 mg/dL Problems(with codes): (1) Metastatic disease (2) Thrombocytopenia (3) Diarrhea (4) Generalized weakness (5) Dehydration (6) Malignancy Prognosis Plan Suspect possible viral gastroenteritis that is resolving Continue supportive care Hypokalemia is improving Diarrhea is improving Continue Questran 4 g packet p.o. daily Imodium as needed as needed for diarrhea Advance diet as tolerated Discharge planning as per hospitalist Repeat BMP in a.m. Dietary Evaluation Review Comments: 1) Ensure High Protein 240ml TID 2) Continue current POC Expected Outcomes/Goals: To maintain /gain weight GI symptoms to improve Fu 3-5 days Plan discussed with: Patient LYNNE BRYANT MD Oct 07, 2024 20:10
[2024-10-08 05:30] VITALS: BP 112/68; PULSE 74; RESP 16; TEMP 96.9; O2SAT 96
[2024-10-08 06:29] LABS: Chloride 104 mmol/L (98-107); Potassium 3.6 mmol/L (3.5-5.1)
[2024-10-08 06:30] LABS: Anion Gap 8 (5-15); Carbon Dioxide 23 mmol/L (20-31)
[2024-10-08 06:35] LABS: BUN/Creatinine Ratio 10.5 (10.0-20.0); Calcium 7.9 mg/dL (8.7-10.4); Glucose 89 mg/dL (74-106); Sodium 135 mmol/L (136-145)
[2024-10-08 06:36] LABS: Blood Urea Nitrogen 8 mg/dL (9-23)
[2024-10-08 09:00] VITALS: BP 102/64; PULSE 70; RESP 18; TEMP 99.8; O2SAT 95
[2024-10-08] MEDS ORDERED: POTA-228 PO (10:33)
--- NOTE | 2024-10-08 10:47 | DVHDS2 ---
Discharge Summary Date of Admission Sep 23, 2024 at 19:07 Date of Discharge: Oct 08, 2024 Labs/Diagnostic Data: Laboratory Results Test 10/08/24 05:13 10/07/24 22:10 10/07/24 05:28 10/05/24 07:05 Sodium Level 135 mmol/L (136-145) Potassium Level 3.6 mmol/L (3.5-5.1) Chloride Level 104 mmol/L (98-107) Carbon Dioxide Level 23 mmol/L (20-31) Anion Gap 8 (5-15) Blood Urea Nitrogen 8 mg/dL (9-23) Creatinine 0.76 mg/dL (0.700-1.30) Glomerular Filtration Rate Calc 96 mL/min (>90) BUN/Creatinine Ratio 10.5 (10.0-20.0) Serum Glucose 89 mg/dL (74-106) Calcium Level 7.9 mg/dL (8.7-10.4) Stool for White Cells None seen Magnesium Level 1.6 mg/dL (1.6-2.6) White Blood Count 9.9 10^3/uL (4.4-10.8) Red Blood Count 3.10 10^6/uL (4.5-5.90) Hemoglobin 12.1 g/dL (13.5-17.5) Hematocrit 33.8 % (41.0-53.0) Mean Corpuscular Volume 109.1 fL (80.0-100.0) Mean Corpuscular Hemoglobin 39.2 pg (28.0-32.0) Mean Corpuscular Hemoglobin Concent 35.9 g/dL (32.0-36.0) Red Cell Distribution Width 23.9 % (11.8-14.3) Platelet Count 124 10^3/uL (140-450) Mean Platelet Volume 8.4 fL (6.9-10.8) Neutrophils (%) (Auto) 65.5 % (37.0-80.0) Lymphocytes (%) (Auto) 16.7 % (10.0-50.0) Monocytes (%) (Auto) 17.2 % (0.0-12.0) Eosinophils (%) (Auto) 0.3 % (0.0-7.0) Basophils (%) (Auto) 0.3 % (0.0-2.0) Neutrophils # (Auto) 6.5 10 ^3/uL (1.6-8.6) Lymphocytes # (Auto) 1.7 10 ^3/uL (0.4-5.4) Monocytes # (Auto) 1.7 10 ^3/uL (0-1.3) Eosinophils # (Auto) 0 10 ^3/uL (0-0.8) Basophils # (Auto) 0 10 ^3/uL (0-0.2) Nucleated Red Blood Cells 0.2 % Total Bilirubin 0.9 mg/dL (0.2-1.0) Aspartate Amino Transferase (AST) 38 U/L (13-40) Alanine Aminotransferase (ALT) 20 U/L (7-40) Alkaline Phosphatase 146 U/L (46-116) Total Protein 4.6 g/dL (5.7-8.2) Albumin 2.7 g/dL (3.2-4.8) Test 10/03/24 05:16 10/01/24 05:25 09/28/24 15:44 09/23/24 13:15 Differential Total Cells Counted 100.0 (100) Neutrophils % (Manual) 68 (37.0-80.0) Band Neutrophils % (Manual) 2 Lymphocytes % (Manual) 15 (10.0-50.0) Monocytes % (Manual) 15 (0-12) Eosinophils % (Manual) 0 (0-7) Basophils % (Manual) 0 (0.0-2.0) Metamyelocytes % (manual) 0 Myelocytes % (Manual) 0 Promyelocytes % (Manual) 0 Blast Cells % (Manual) 0 Reactive Lymphocytes 0 Platelet Estimate Decreased Anisocytosis (manual) Moderate Microcytosis Marked Macrocytosis Marked Urine Color Yellow (Yellow) Urine Clarity Clear (Clear) Urine pH 6.0 (5.0-9.0) Urine Specific [place] 1.017 (1.001-1.035) Urine Protein 1+ (Negative) Urine Ketones Negative (Negative) Urine Blood Negative /uL (Negative) Urine Nitrite Negative (Negative) Urine Bilirubin Negative (Negative) Urine Urobilinogen Normal mg/dL (Negative) Urine Leukocyte Esterase Negative /uL (Negative) Urine RBC <1 /hpf (0 - 3) Urine Microscopic WBC 1 /HPF (0-3) Urine Squamous Epithelial Cells Few /hpf (<5) Urine Bacteria Few /hpf (None Seen) Urine Hyaline Casts Few /lpf (0 - 2) Urine Mucus Few (None Seen) Urine Glucose Normal mg/dL (Normal) Lactic Acid Level 1.7 mmol/L (0.4-2.0) Other Laboratory Tests 10/08/24 05:13 10/05/24 07:05 Brief Hx & Hospital Course: Discharge diagnoses: Severe diarrhea C. 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 Transaminitis Hyperbilirubinemia Thrombocytopenia History of atrial fibrillation on Eliquis Hypokalemia Hypomagnesemia 69-year-old male who was admitted for severe diarrhea and dehydration which resulted in acute kidney injury and electrolytes imbalance including hypokalemia and hypomagnesemia He was treated with IV fluids and is stool specimen was checked on admission for C diff was negative He was replace with potassium and magnesium His diet was advanced slowly however he continued to have diarrhea After about a week of treatments and antidiarrhea medications the diarrhea continued and therefore we repeated the C diff specimen in his stool which was also negative We consulted GI which recommended conservative management We continued IV fluids and electrolyte replacement and eventually the patient improved Today his diarrhea is much better Electrolytes are corrected and therefore he will be discharged home to continue same home medications at home and he will be given a potassium supplements for 10 days He was also complaining of dry skin and peeling of the skin of his hands and joint pain and therefore we will relate these complaints to his primary care physician to get a referral to Rheumatology as an outpatient Condition at Discharge: Stable Final Diagnosis/Problems List Severe diarrhea C. 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 Rider as soon as possible Medications: Same home medications Add potassium supplements for 10 days Scheduled Allopurinol (Allopurinol), 300 MG PO DAILY, (Reported) Apixaban Base (Eliquis), 5 MG PO BID, (Reported) Atorvastatin Calcium (Atorvastatin Calcium), 1 TAB PO DAILY, (Reported) Celecoxib (Celecoxib), 1 CAP PO DAILY, (Reported) Cholestyramine (Questran Powder), 4 GM PO TIDBM Ferrous Sulfate (Ferosul), 1 TAB PO DAILY, (Reported) Losartan Potassium (Losartan Potassium), 1 TAB PO DAILY Omeprazole (Gnp Omeprazole), 1 TAB PO DAILY, (Reported) Potassium Chloride (Potassium Chloride ER), 10 MEQ PO DAILY Miscellaneous Medications Tamsulosin Hcl (Tamsulosin Hcl), (Reported) Discharge Statement: "Patient was advised to return to the ER or call 911 if any headaches, dizziness, shortness of breath, chest pain, abdominal pain, bleeding, fevers, or worsening of medical condition. Patient was counseled about treatment plan, medications, possible side effects, patientverbalized understanding. All questions were answered to the best of my ability. This discharge took greater then 30 minutes in planning, reviewing documentation, counseling the patient, and discussing with other team members." ASSESSMENT ASSESSMENT Assessment Severe diarrhea C. 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
[2024-10-08 13:00] VITALS: BP 98/68; PULSE 67; RESP 20; TEMP 99.3; O2SAT 97
[2024-10-08 13:03] VITALS: BP 98/65; PULSE 67; RESP 20; TEMP 36.1; O2SAT 97
--- NOTE | 2024-10-08 15:00 | DVHPN2 ---
Progress Note - Dictate Date Seen: Oct 08, 2024 Has the PT tested + for MRSA If YES, has PT been informed?: No Medical Necessity Reason Pt with a Central, PICC or Fol: No Subjective No new complaints ; feels much better Stool is more formed in the colostomy Repeat stool for C diff is negative Stool tests were negative for ova and parasites K is 3.6 vital signs Vital Sign Date Time Temp Pulse Resp B/P (MAP) Pulse Ox O2 Delivery O2 Flow Rate FiO2 10/08/24 13:03 36.1 67 20 97 10/08/24 13:00 98/68 (78) 10/08/24 08:30 Room Air* 0 21 Total Intake and Output 10/07/24 10/07/24 10/08/24 15:00 23:00 07:00 Intake Total 687 ml 825 ml 450 ml Output Total 600 ml 1800 ml Balance 87 ml 825 ml -1350 ml medications Current Medications Medications Dose Ordered Sig/Landon Route Start Time Stop Time Status Last Admin Dose Admin Allopurinol 300 mg DAILY PO 09/24/24 10:00 10/08/24 11:10 300 MG Apixaban 5 mg BID PO 09/23/24 22:00 10/08/24 11:10 5 MG Atorvastatin Calcium 20 mg HS PO 09/23/24 22:00 10/07/24 21:11 20 MG Tamsulosin HCl 0.4 mg QPM PO 09/24/24 18:00 10/07/24 17:17 0.4 MG Acetaminophen/ Hydrocodone Bitart 1 tab Q4HP PRN PO 09/23/24 19:15 09/30/24 00:54 1 TAB Ondansetron HCl 4 mg Q4HP PRN IV 09/23/24 19:15 09/28/24 21:07 4 MG Morphine Sulfate 2 mg Q4HPRN PRN IV 09/23/24 19:15 Acetaminophen 650 mg Q6HP PRN PO 09/24/24 10:15 09/28/24 17:18 650 MG Diphenoxylate HCl/ Atropine 2.5 mg Q6HP PRN PO 09/26/24 09:30 10/03/24 10:30 2.5 MG Saccharomyces Boulardii 250 mg BID PO 09/30/24 10:00 10/08/24 10:00 250 MG Pantoprazole Sodium 40 mg DAILY@0600 PO 10/01/24 06:00 10/08/24 06:16 40 MG Sucralfate 1 gm ACHS PO 09/30/24 22:00 10/08/24 11:08 1 GM Vancomycin HCl 250 mg QID PO 10/01/24 12:00 10/08/24 11:10 250 MG Cholestyramine Resin 4 gm Q12HR@23 PO 10/02/24 23:00 10/08/24 11:09 4 GM Potassium Bicarbonate 50 meq BID PO 10/05/24 22:00 10/08/24 11:08 50 MEQ objective General Appearance: Alert, Oriented X3, Cooperative Lungs: Clear to auscultation, Normal air movement Abdomen: Normal bowel sounds, Soft, No tenderness; left-sided colostomy functional Extremities: No edema laboratory and microbiology Laboratory Tests 10/08/24 05:13 10/05/24 07:05 Test 10/08/24 05:13 Range/Units Serum Glucose 89 74-106 mg/dL Problems(with codes): (1) Malignancy (2) Metastatic disease (3) Diarrhea (4) Generalized weakness (5) Dehydration Prognosis Plan Suspect possible viral gastroenteritis that is resolving Continue supportive care Hypokalemia has resolved Diarrhea is improving Continue Questran 4 g packet p.o. daily Imodium as needed as needed for diarrhea Advance diet as tolerated Discharge planning in progress Dietary Evaluation Review Comments: 1) Ensure High Protein 240ml TID 2) Continue current POC Expected Outcomes/Goals: To maintain /gain weight GI symptoms to improve Fu 3-5 days Plan discussed with: Patient LYNNE BRYANT MD Oct 08, 2024 15:00
== END 2024-10-08 15:40 | disposition home or self-care (01) | DRG 391 ==
LOC: ER 11:32 → OVERFLOW 19:07 → WEST WING 09-25 14:34 → EAST 09-30 15:23
PROVIDERS: ADMIT Internal Medicine Geriatric Medicine; ATTEND Internal Medicine Geriatric Medicine
DX: A09 Infectious gastroenteritis and colitis, unspecified (principal); N17.0 Acute kidney failure with tubular necrosis; C18.9 Malignant neoplasm of colon, unspecified; K90.9 Intestinal malabsorption, unspecified; C79.51 Secondary malignant neoplasm of bone; C78.7 Secondary malignant neoplasm of liver and intrahepatic bile duct; E86.0 Dehydration; D69.6 Thrombocytopenia, unspecified; E83.42 Hypomagnesemia; E87.6 Hypokalemia; E83.51 Hypocalcemia; E88.09 Other disorders of plasma-protein metabolism, not elsewhere classified; K80.20 Calculus of gallbladder without cholecystitis without obstruction; N21.0 Calculus in bladder; G62.9 Polyneuropathy, unspecified; R74.01 Elevation of levels of liver transaminase levels; I48.91 Unspecified atrial fibrillation; N40.0 Benign prostatic hyperplasia without lower urinary tract symptoms; Z79.01 Long term (current) use of anticoagulants; Z82.49 Family history of ischemic heart disease and other diseases of the circulatory system; Z93.3 Colostomy status; Z90.49 Acquired absence of other specified parts of digestive tract; Z86.73 Personal history of transient ischemic attack (TIA), and cerebral infarction without residual deficits
CPT/HCPCS: 36415; 74176; 80048; 80053; 81001; 83605; 83735; 85007; 85025; 85027; 85048; 87040; 87045; 87177; 87427; 87493; 97163; G0378; J2405; J2470; J3490